=== PATIENT | female | born 1930 | race Caucasian/White ===

== ENCOUNTER 2016-06-26 22:56 | Inpatient (IN) | payer MEDICARE, OTHER ==
[~2016-06-26] VITALS: Ht 165.1 cm; Wt 52.9 kg
--- NOTE | ~2016-06-26 | CN ---
PATIENT NAME:BRITNEY FRIEDMAN MEDICAL RECORD: [id number] : 28 LOCATION:[address] ADMIT DATE: 06/27/16 ACCOUNT: [id number] CONSULTING PHYSICIAN: BETZAIDA RIVERA MD REFERRING PHYSICIAN: PRISCA JIMENEZ MD DATE OF CONSULTATION: 06/29/2016 Pulmonary Consultation CONSULT REQUESTING PHYSICIAN: Prisca Jimenez MD REASON FOR CONSULTATION: Pneumonia, right lower lobe; acute exacerbation of COPD. HISTORY OF PRESENT ILLNESS: Ms. Friedman is an 86-year-old female. According to the patient, recurrent pneumonia since February. She has a few courses of antibiotic, but she is not getting any better. She got sick 10 days ago and she was worsening shortness of breath. She was wheezing. She was coughing. She was call 911 and brought into the ER. Now, she denies any fever or chills, no night sweats. PAST MEDICAL HISTORY: 1. COPD. 2. Chronic hypoxic respiratory failure. 3. Hypothyroidism. 4. Hyperlipidemia. 5. History of depression. PAST SURGICAL HISTORY: 1. She is status post hysterectomy. 2. Appendectomy. ALLERGIES: SHE IS ALLERGIC TO CODEINE, DOXYCYCLINE, KEFLEX AND PENICILLIN. PRESENT MEDICATIONS: She is on Zithromax IV. Her other medication is reviewed. PERSONAL AND SOCIAL HISTORY: The patient is still smoking, but she is smoking 1-2 cigarettes a day. She is a nondrinker. She was a heavy smoker in the past. FAMILY HISTORY: Noncontributory. PHYSICAL EXAMINATION: GENERAL: Now, the patient is lying comfortably in bed. She is not in acute distress. VITAL SIGNS: Blood pressure is 128/62, pulse is 73, respiration is 18, temperature 98.4, SPO2 93% on 2 liter nasal cannula. HEENT: Conjunctivae pink, sclerae nonicteric. NECK: Supple. There is no JVD. CHEST: There is a crackle on the right base. No wheezing. HEART: Rhythm regular, normal sound, no murmur. ABDOMEN: Soft, bowel sounds present. No hepatosplenomegaly. RECTAL: Deferred. EXTREMITIES: No cyanosis, no clubbing, no pedal edema. SKIN: Warm, normal turgor. CENTRAL NERVOUS SYSTEM: The patient is awake and alert. There are no obvious CONSULT REPORT [id number] BRITNEY FRIEDMAN cranial nerve abnormality. The gait was not tested. LABORATORY DATA: CBC: The WBC is 11.3, hemoglobin is 10.5, hematocrit 34.7, and platelet count 257. Chemistry: Sodium 139, potassium 3.9, chloride 103, BUN is 14, creatinine 0.9, glucose 96. IMPRESSION: 1. Acute exacerbation of chronic obstructive pulmonary disease, [id number] hypoxic respiratory failure. 2. Pneumonia, right lower lobe, most likely recurrent, rule out dysphagia, chronic aspiration, rule out immune deficiency. 3. Leukocytosis secondary to pneumonia. 4. Tobacco dependence syndrome. 5. Hypertension. 6. Dysphagia. RECOMMENDATION: 1. I will discontinue the Zithromax, start her on Levaquin. 2. Start on Rocephin to cover from Gram-negative rods and community-acquired pneumonia. 2. Methylprednisolone IV. 3. Discontinue the Breo. Start her on Brovana and budesonide nebulizer. Continue albuterol and ipratropium nebulizer. 4. Check immunoglobulin levels. Check the alpha 1 antitrypsin level. 5. Speech pathology consult for swallowing evaluation. Dr. Jimenez, once again thanks for involving me in the care of Ms. Friedman. TRANSINT:[id number] Voice Confirmation ID: [id number] DOCUMENT ID: [id number] BETZAIDA RIVERA MD CC: PRISCA JIMENEZ MD [id number] DICTATION DATE: 06/29/16 142 POTATO SEED CUTTER: 06/29/16 2332 ADM IN [address] [id number] [place] [address]
[~2016-06-26 22:56] MED LIST: ATIVAN0.5 MG PO; BETAPACE 80 MG80 MG PO; CARAFATE1 G/10 ML PO; HYDROCODON-ACE1 EAC6 PO; LANOXIN125 MCG PO; METOPROLOL TAR100 M1 OR; MILK OF MAGNESI30 ML PO; MIRALAX17 GM PO; NORVASC5 MG PO; POTASSIUM20 MEQ/11 PO; PRADAXA150 MG PO; PROTONIX40 MG PO; SYNTHROID88 MCG PO; TOPROL XL50 MG PO; VITAMIN D31000 UNIT PO
[2016-06-26 23:53] LABS: BASOPHILS 0.2 % (0-2); EOSINOPHILS 2.5 % (0-7); HEMOGLOBIN 11.1 g/dL (12-16); IMMATURE GRANULOCYTES 0.3 % (0-5); LYMPHOCYTES 10.3 % (15-50); MCH 29.6 pg (26.0-34.0); MCV 98.7 fL (80.0-100.0); MEAN PLATELET VOLUME 9.2 fL (7.4-10.4); MONOCYTES 8.3 % (2-11); NEUTROPHILS 78.4 % (40-80); PLATELET COUNT 294 10x3/uL (130-400); RBC 3.75 10x6/uL (4.00-5.40); RDW 15.6 % (11.5-14.5); WBC 11.6 10x3/uL (4.8-10.8)
[2016-06-26 23:55] LABS: ALBUMIN 3.2 g/dL (3.4-5.0); ALKALINE PHOSPHATASE 74 U/L (46-116); ALT (SGPT) 8 U/L (10-68); BILIRUBIN - TOTAL 0.29 mg/dL (0.2-1.3); CALC OSMOLALITY 276 mosm/kg (275-300); CARBON DIOXIDE 36.2 mmol/L (21.0-32.0); CHLORIDE - SERUM 99 mmol/L (98-107); CREATININE - SERUM 1.1 mg/dL (0.6-1.3); GLUCOSE 116 mg/dL (74-106); POTASSIUM - SERUM 4.4 mmol/L (3.5-5.1); PROTEIN - SERUM 6.8 g/dL (6.4-8.2); SODIUM 137 mmol/L (136-145); UREA NITROGEN 17 mg/dL (7-18); eGFR NON AFRICAN AMERICAN 50 mL/min (90-120)
[2016-06-27 00:03] LABS: AMYLASE - SERUM 53 U/L (25-115); LIPASE 87 U/L (73-393); PRO BNP 412 pg/mL (0-450)
[2016-06-27 00:07] LABS: TROPONIN-I < 0.017 ng/mL (0.000-0.060)
[2016-06-27] MEDS ORDERED: TOPROL XL100 MG PO (02:55)
[2016-06-27] MEDS ORDERED: BREO ELLIPTA 11 EACH INH (02:56)
[2016-06-27] MEDS ORDERED: VENTOLIN HFA18 GM INH (02:57)
[2016-06-27] MEDS ORDERED: VITAMIN D31000 UNIT PO (02:59)
[2016-06-27 03:02] VITALS: BP 155/74; BMI 18.8
--- NOTE | 2016-06-27 03:16 | NUR ---
IF NEEDING TO CALL : ROYCE ROB [phone] OR DAUGHTER GILMA LIEBERMAN [phone].
--- NOTE | 2016-06-27 03:56 | NUR ---
RECIEVED PATIENT AT 0200, SEE ADMIT ASSESSMENT, CALL LIGHT AND WATER IN [place], BED IN LOW LOCKED POSITION, CPOC.
[2016-06-27 04:11] VITALS: BP 150/70
--- NOTE | 2016-06-27 09:47 | NUR ---
PLACED BILAT SCDS ON PT, PATENT. NOTIFIED NURSE
[2016-06-27 09:49] VITALS: BP 158/82
[2016-06-27 13:12] VITALS: BP 120/72
--- NOTE | 2016-06-27 14:00 | NUR ---
RESTING IN BED. AROUSE WHEN ENTERING ROOM. CALLS FOR ASSISTANCE WHEN NEEDED. USES BED THOMAS. O2 @ 2L NC 02SAT 97%. DENIES ANY NEEDS. CONTINUE PLAN OF CARE. BED LOCKED AND LOW. CALL LIGHT IN REACH. TWO SIDERAILS UP. BED ALARM ON. SCDs ON.
--- NOTE | 2016-06-27 14:16 | NUR ---
ALERT AND ORIENTED X4. RESTING IN BED. DENIES ANY NEEDS AT THIS TIME. CONTROLLED A-FIB 83bpm ON TELEMETRY. BED LOCKED AND LOW. CALL LIGHT IN REACH. TWO SIDERAILS UP. SCDs.
--- NOTE | 2016-06-27 17:34 | HP ---
PATIENT: BRITNEY ROB MEDICAL RECORD: [id number] ACCOUNT: [id number] LOCATION:[address] : 29 ADMISSION DATE: 06/27/16 HISTORY AND PHYSICAL EXAMINATION DATE OF ADMISSION: 06/27/2016 CHIEF COMPLAINT: Shortness of breath. HISTORY OF PRESENT ILLNESS: The patient is an 86-year-old female with longstanding history of COPD. States for the past 10 days, she has had increasing cough and increasing congestion, 911 was phoned and the patient presented to the Emergency Room and found to have a right lower lobe pneumonia. PAST MEDICAL HISTORY: Significant that she has had hysterectomy. She has had an appendectomy. She has had a broken wrist in the past. She is a . The patient has had a history of having depression, fatigue, hyperlipidemia, COPD, hypothyroidism. FAMILY HISTORY: Father had a myocardial infarction. Mother had malignant neoplasm, type unknown. ALLERGIES: SHE IS ALLERGIC TO CODEINE, DOXYCYCLINE, KEFLEX, PENICILLIN. MEDICATIONS: Include alendronate 70 mg once a day, Xanax 0.25 p.o. q.6 hours p.r.n. anxiety, amlodipine 5 mg once a day, atorvastatin 20 mg once a day, Breo Ellipta 200 mcg/25 one puff q. daily, calcium 600 mg once a day, ferrous sulfate 325 one p.o. q. daily, Lasix 40 mg once a day, hydrochlorothiazide 12.5 mg 1 p.o. q. daily. Also, the patient is on Combivent 2 puffs q.4 hours p.r.n. shortness of breath, levothyroxine 88 mcg once a day, metoprolol succinate ER 50 mg 1 p.o. daily, Mucinex on a p.r.n. basis, Protonix 40 mg once a day, KCl 10 mEq once a day, Pradaxa 150 mg b.i.d., sotalol 80 mg b.i.d., Spiriva Respimat 2 puffs daily, Ventolin 2 puffs q.4 hours p.r.n. shortness of breath. SOCIAL HISTORY: She is a , lives alone. She has smoked most of her life, one pack per day smoker. She is retired. Educated through 11th grade. REVIEW OF SYSTEMS: CONSTITUTIONAL: She denies any headaches, seizures, or syncope. Denies change in visual or auditory acuity. PULMONARY: She has reported having some cough. She has had congestion. She has had increasing shortness of breath. CARDIOVASCULAR: She has had no chest pain, palpitation, PND or orthopnea. GASTROINTESTINAL: No chronic nausea, vomiting, melena or hematochezia. GENITOURINARY: No urgency, frequency, or dysuria. PHYSICAL EXAMINATION: GENERAL: In the Emergency Room, the patient's temperature was 98.4, her pulse 71, respirations 18, blood pressure 155/74, O2 sat was 96% on 3 liters. HEENT: Her head is normocephalic. No lesions. Ears: TMs clear. Eyes: Pupils equal, round and reactive to light. Extraocular movements are intact. Nasal cavity, oral cavity and oropharynx clear. NECK: Supple. There is no adenopathy. HEART: Had a regular rate. LUNGS: She had end expiratory wheezes in all bradley. HISTORY AND PHYSICAL [id number] BRITNEY ROB ABDOMEN: Soft, bowel sounds are positive. No organomegaly. LABORATORY DATA: The patient had a white count elevated at 11.6, hemoglobin 11.1, hematocrit was 37, and platelets were 298. She had a sodium 137, potassium 4.4, chloride of 99, CO2 was 36.2, BUN 17, creatinine 1.1, glucose 116. ASSESSMENT: Right lower lobe pneumonia, history of COPD, hypertension and hypothyroidism. PLAN: The patient is admitted. She will have sputum cultures obtained, O2 supplementation, updraft therapy q.4 hours. She will also be placed on Levaquin IV. Continue to evaluate. TRANSINT:[id number] Voice Confirmation ID: [id number] DOCUMENT ID: [id number] PRISCA JIMENEZ MD at 1734 CC: [id number] DICTATION DATE: 06/27/16714 RADIOLOGY SPECIAL PROCEDURE TECH: 06/27/16 0859 ADM IN [place] [address] [place] [address]
--- NOTE | 2016-06-27 19:25 | NUR ---
RECEIVED REPORT, PT DENIES ANY NEEDS, CALL LIGHT IN REACH, BED IS LOW, SRX2, FAMILY AT BEDSIDE, WILL CONTINUE WITH CARE OF PLAN
--- NOTE | 2016-06-27 19:30 | NUR ---
RECEIVED REPORT, SITTING ON SIDE OF BED, DENIES ANY NEEDS, CALL LIGHT IN REACH, AT BED SIDE, WILL CONTINUE WITH CARE OF PLAN
[2016-06-27 20:00] VITALS: BP 143/66
[2016-06-28 01:32] VITALS: BP 96/55
--- NOTE | 2016-06-28 01:47 | NUR ---
IV RESTARTED IN R FOREARM. O2 ON. WILL CONTINUE TO MONITOR.
[2016-06-28 04:16] VITALS: BP 108/61
--- NOTE | 2016-06-28 04:29 | NUR ---
ASSESSMENT COMPLETE, SEE FLOWSHEET, PT SLEEPING, BED IS LOW, SRX2, CALL LIGHT IN REACH, WILL CONTINUE PLAN OF CARE
[2016-06-28 04:56] LABS: BASOPHILS 0.1 % (0-2); EOSINOPHILS 0.2 % (0-7); HEMOGLOBIN 10.3 g/dL (12-16); IMMATURE GRANULOCYTES 0.2 % (0-5); LYMPHOCYTES 9.7 % (15-50); MCH 29.7 pg (26.0-34.0); MCHC 30.3 g/dL (31.0-37.0); MEAN PLATELET VOLUME 9.1 fL (7.4-10.4); MONOCYTES 9.8 % (2-11); PLATELET COUNT 292 10x3/uL (130-400); RBC 3.47 10x6/uL (4.00-5.40); WBC 13.2 10x3/uL (4.8-10.8)
[2016-06-28 05:19] LABS: ANION GAP 6.3 mmol/L (8-16); CALCIUM 8.5 mg/dL (8.5-10.1); CARBON DIOXIDE 34.5 mmol/L (21.0-32.0); POTASSIUM - SERUM 3.8 mmol/L (3.5-5.1)
--- NOTE | 2016-06-28 08:00 | NUR ---
BEDPAN REMOVED FROM UNDER PATIENT. IT HAS SPILLED. REMOVED THE CLOTH BLAKE. SHE STATE SHTAT SHE WANTS A BED BATH TODAY. ENCOURAGED HER TO HAVE SPONGE BATH IN THE BEDSIDE CHAIR WHEN UP.
--- NOTE | 2016-06-28 08:15 | NUR ---
PATIENT SITTING UP IN HER BED BUTTERING HER BISCUIT. STATES THAT SHE HASN'T EATEN YET. INFORMED THAT SHE NEEDS TO BE NPO FOR AN ABDOMINAL CT. SHE VOICED UNDERSTANDING AND DENIED EATING OR DRINKING ANY OF HER BREAKFAST YET THIS MORNING.
[2016-06-28 08:33] VITALS: BP 156/75
[2016-06-28 12:31] VITALS: BP 142/77
[2016-06-28 14:11] VITALS: Ht 165.1 cm; Wt 52.9 kg
--- NOTE | 2016-06-28 14:12 | NUR ---
PATIENT RESTING IN HER BED WITHOUT EVIDENCE OF PAIN/DISTRESS AT THIS TIME. DAUGHTER IS AT THE BEDSIDE. CALL LIGHT IS WITHIN REACH.
[2016-06-28 16:55] VITALS: BP 115/56
[2016-06-28 19:00] VITALS: BP 142/71
--- NOTE | 2016-06-28 19:20 | NUR ---
RECEIVED REPORT, VISITING WITH FAMILY, DENIES ANY NEEDS, CALL LIGHT IN REACH, SCD ARE ON, BED IS LOW, SRX2, CONTINUE PLAN OF CARE
[2016-06-29 00:20] VITALS: BP 125/53
--- NOTE | 2016-06-29 00:37 | NUR ---
COIL WINDER STRAP AT BEDSIDE TO OBTAIN VITALS, CALL LIGHT IN REACH. WILL CONTINUE WITH PLAN OF CARE.
--- NOTE | 2016-06-29 04:16 | NUR ---
ASSESSMENT COMPLETE, SEE FLOWSHEET, SLEEPING, BED IS LOW, SRX2, CALL LIGHT IN REACH, WILL CONTINUE CARE OF PLAN
[2016-06-29 04:37] VITALS: BP 127/62
[2016-06-29 04:46] LABS: BASOPHILS 0.2 % (0-2); HEMATOCRIT 34.7 % (36.0-48.0); HEMOGLOBIN 10.5 g/dL (12-16); IMMATURE GRANULOCYTES 0.4 % (0-5); LYMPHOCYTES 11.6 % (15-50); MCH 29.6 pg (26.0-34.0); MCHC 30.3 g/dL (31.0-37.0); MCV 97.7 fL (80.0-100.0); MEAN PLATELET VOLUME 8.9 fL (7.4-10.4); MONOCYTES 10.5 % (2-11); NEUTROPHILS 76.3 % (40-80); PLATELET COUNT 257 10x3/uL (130-400); RBC 3.55 10x6/uL (4.00-5.40); RDW 15.8 % (11.5-14.5); WBC 11.3 10x3/uL (4.8-10.8)
[2016-06-29 05:06] LABS: ANION GAP 5.9 mmol/L (8-16); CALCIUM 8.5 mg/dL (8.5-10.1); CREATININE - SERUM 0.9 mg/dL (0.6-1.3); POTASSIUM - SERUM 3.9 mmol/L (3.5-5.1)
[2016-06-29 08:20] VITALS: BP 120/73
--- NOTE | 2016-06-29 08:39 | NUR ---
PATIENT C/O INDEGESTION. MYLANTA 30 ML PO GIVEN NOW, SHE IS GOING FOR 2 VIEW CXRAY.
--- NOTE | 2016-06-29 08:40 | NUR ---
PATIENT'S IV INFILTRATED IN RIGHT FOREARM, ATTEMPTED X1 IN RIGHT WRIST, UNSUCCESSFUL ATTEMPT BY THIS NURSE, CALLED IV NURSE STEPHANIE AND SHE WAS ABLE TO INSERT IV IN LEFT WRIST.
--- NOTE | 2016-06-29 09:30 | NUR ---
PATIENT HAS SAID SHE DOES NOT FEEL WEEL, HER STOMACH IS BURNING SHE SAYS AND SHE WAS NOT ABLE TO EAT BREAKFAST, SHE SAID THE PUDDING EVEN BURNED.
[2016-06-29 12:28] VITALS: BP 128/62
--- NOTE | 2016-06-29 14:00 | NUR ---
PATIENT C/O STOMACH PAIN. MYLANTA 30 ML PO GIVEN, SHE IS REQUESTING MAALOX THAT HAD ANOTHER MED WITH IT, SAYS THAT HAS HELPED IN THE PAST.
[2016-06-29 16:54] VITALS: BP 145/76
--- NOTE | 2016-06-29 19:30 | NUR ---
ASSESSMENT COMPLETE, A&o. RESPERATIONS EVEN ON 02 AT 2 LITER VIA NC. IV TO LEFT ARM SL. SITE CLEAN AND DRY. PT DENIES PAIN OR NEEDS AT THIS TIME, BED LOW, CL IN REACH.
--- NOTE | 2016-06-29 20:57 | NUR ---
HS MEDS GIVEN, DENIES PAIN OR NEEDS, BED LOW, CL IN REACH.
[2016-06-29 22:47] VITALS: BP 137/73
--- NOTE | 2016-06-30 00:37 | NUR ---
HOTEL OR MOTEL CLEANING SUPERVISOR AT BEDSIDE TO OBTAIN VITALS, CALL LIGHT IN REACH. WILL CONTINUE WITH PLAN OF CARE.
[2016-06-30 01:51] VITALS: BP 120/88
--- NOTE | 2016-06-30 02:18 | NUR ---
RESTING WITH EYES CLOSED, RESPERATIONS EVEN, NO S/S DISTRESS NOTED.
[2016-06-30 03:01] LABS: BASOPHILS 0 % (0-2); EOSINOPHILS 0 % (0-7); HEMATOCRIT 36.2 % (36.0-48.0); HEMOGLOBIN 11.2 g/dL (12-16); IMMATURE GRANULOCYTES 0.5 % (0-5); LYMPHOCYTES 6.2 % (15-50); MCH 29.6 pg (26.0-34.0); MCHC 30.9 g/dL (31.0-37.0); MCV 95.8 fL (80.0-100.0); MONOCYTES 0.8 % (2-11); NEUTROPHILS 92.5 % (40-80); PLATELET COUNT 272 10x3/uL (130-400); RBC 3.78 10x6/uL (4.00-5.40); RDW 15.6 % (11.5-14.5)
[2016-06-30 03:06] LABS: WBC 7.6 10x3/uL (4.8-10.8)
[2016-06-30 03:16] LABS: CALCIUM 8.8 mg/dL (8.5-10.1); CARBON DIOXIDE 32.3 mmol/L (21.0-32.0); CREATININE - SERUM 0.9 mg/dL (0.6-1.3); POTASSIUM - SERUM 4.3 mmol/L (3.5-5.1)
[2016-06-30 05:13] VITALS: BP 129/75
[2016-06-30 08:00] VITALS: BP 110/68
--- NOTE | 2016-06-30 08:00 | NUR ---
INTRODUCED MYSELF TO PT PRIMARY RN FOR TODAYS SHIFT. PT IS ALERT AND ORIENTED RESTING QUIETLY IN BED. SHIFT ASSESSMENT COMPLETED. RR NONLABORED WITH NC @2L IN PLACE. PT HAS A L.HAND PIV WITH DRSG CDI AND SWAB CAPS IN USE. PT IS C/O INDIGESTION AND HEARTBURN WILL LOOK ON EMAR FOR ANY MEDS TO HELP WITH IT. PT DENIES ANY CURRENT NEEDS AT THIS TIME, CL IN REACH. WILL CTM.
[2016-06-30 12:00] VITALS: BP 115/54
[2016-06-30 12:18] LABS: IMMUNOGLOBULIN A 330 mg/dL (64-422); IMMUNOGLOBULIN G 843 mg/dL (700-1600); IMMUNOGLOBULIN M 83 mg/dL (26-217)
--- NOTE | 2016-06-30 13:10 | NUR ---
UPON FLUSHING PTS L.HAND PIV IT INFILTRATED. D/C IV WITH CATHETER TIP FULLY INTACT, BRUISING ON HAND NOW. PT IS C/O SEVERE REFLUX/HEARTBURN, PROVIDED PT WITH MYLANTA TO TRY AND HELP RELIEVE IT. PT JUST NOT HAVING A GOOD DAY AND STATES SHE DOESNT FEEL WELL. FAMILY AT BEDSIDE, CL IN REACH. WILL CTM.
--- NOTE | 2016-06-30 13:32 | NUR ---
22G TO LEFT OUTE AC X 2 STICKS.
--- NOTE | 2016-06-30 14:41 | NUR ---
Nutrition follow-up: Diet: Regular PO intake ~60% of meals Labs reviewed RDN following.
[2016-06-30 16:49] VITALS: BP 145/68
--- NOTE | 2016-06-30 17:10 | NUR ---
CALLED OFFICE AND SPOKE WITH NURSE FOR WHO IS ROUNDING FOR CARTER AND REC'D ORDER TO HELP RELIEVE PTS INDIGESTION/HEARTBURN WITH MEALS. WAS AT BEDSIDE AND RECOMMENDED A GI CONSULT HOWEVER PRIMARY ATTENDING () DID NOT WANT ONE AND WANTED TO TRY THIS FIRST. PT COULD ALSO JUST BE CONSTIPATED SHE STATES SHE HASNT HAD A BM SINCE SUNDAY. BS ACTIVE X4 AND PT STATES SHE HASNT BEEN EATING VERY MUCH. WILL CTM.
--- NOTE | 2016-06-30 19:33 | NUR ---
ASSESSMENT COMPLETE, A&O. SITTING UP IN BED, MULTIPLE VISITORS AT BED SIDE, PT DENIES PAIN OR NEEDS, BED LOW, CL IN REACH.
--- NOTE | 2016-06-30 21:00 | NUR ---
HS MEDS GIVEN WITH FRESH ICE WATER, FAMILY AT BED SIDE, BED LOW, CL IN REACH.
[2016-06-30 21:22] VITALS: BP 127/63
--- NOTE | 2016-06-30 23:38 | NUR ---
UP WITH ASSIST TO BR.
--- NOTE | 2016-07-01 00:55 | NUR ---
RESTING WITH EYES CLOSED, RESPERATIONS EVEN, NO S/S DISTRESS NOTED.
[2016-07-01 01:14] VITALS: BP 136/75
[2016-07-01 04:37] LABS: BASOPHILS 0 % (0-2); EOSINOPHILS 0 % (0-7); HEMATOCRIT 36.9 % (36.0-48.0); HEMOGLOBIN 11.5 g/dL (12-16); IMMATURE GRANULOCYTES 0.2 % (0-5); LYMPHOCYTES 4.6 % (15-50); MCH 29.4 pg (26.0-34.0); MCHC 31.2 g/dL (31.0-37.0); MCV 94.4 fL (80.0-100.0); NEUTROPHILS 92.2 % (40-80); PLATELET COUNT 314 10x3/uL (130-400); RBC 3.91 10x6/uL (4.00-5.40); RDW 15.7 % (11.5-14.5)
[2016-07-01 04:46] LABS: WBC 16.5 10x3/uL (4.8-10.8)
[2016-07-01 05:01] LABS: ANION GAP 6.5 mmol/L (8-16); CALCIUM 8.9 mg/dL (8.5-10.1); CARBON DIOXIDE 31.9 mmol/L (21.0-32.0); CREATININE - SERUM 1.1 mg/dL (0.6-1.3); POTASSIUM - SERUM 4.4 mmol/L (3.5-5.1)
[2016-07-01 06:06] VITALS: BP 147/74
[2016-07-01 08:54] VITALS: BP 150/54
[2016-07-01 12:20] VITALS: BP 131/73
--- NOTE | 2016-07-01 15:07 | NUR ---
PT RESTING QUIETLY IN BED WITH EYES CLOSED. WOKE PT TO INITIATE IVPB ROCEPHIN AND IV PUSH SOLU-MEDROL. PUSHED STERIOD OVER 3 MINS AND FLUSHED WITH NS FLUSH THEN CONNECTED PT TO ANBX. PT RESTING QUIETLY IN BED WITH SCDS IN PLACE. PT DENIES ANY CURRENT PAIN OR INDIGESTION OR NEEDS AT THIS TIME. CL IN REACH, BED IN LOWEST, SIDE RAILS X2. WILL CTM.
[2016-07-01 17:16] VITALS: BP 112/71
--- NOTE | 2016-07-01 19:34 | NUR ---
ASSESSMENT COMPLETE, PT A&O. RESPERATIONS EVEN ON AT 2 LITER VIA NC. IV TO LEFT ARM WITH NS INFUSING AT KVO. PT DENIES PAIN OR NEEDS, BED LOW, CL IN REACH. WILL CONT TO MONITOR.
[2016-07-01 20:00] VITALS: BP 126/62
--- NOTE | 2016-07-01 20:11 | NUR ---
UP WITH ASSIST TO BR.
--- NOTE | 2016-07-01 21:12 | NUR ---
HS MEDS GIVEN WITH FRESH ICE WATER. PT DENIES PAIN OR NEEDS, BED LOW, CL IN REACH.
[2016-07-02] VITALS: BP 129/66
--- NOTE | 2016-07-02 02:06 | NUR ---
RESTING WITH EYES CLOSED, RESPERATIONS EVEN, NO S/S DISTRESS NOTED.
[2016-07-02 04:00] VITALS: BP 144/82
[2016-07-02 08:38] VITALS: BP 161/84
[2016-07-02] MEDS ORDERED: MEDROL DOSE PACK4 MG PO (09:08)
[2016-07-02] MEDS ORDERED: LEVAQUIN750 MG PO (09:09)
[2016-07-02] MEDS ORDERED: CEFUROXIME250 MG PO (09:09)
[2016-07-02] MEDS ORDERED: MYLANTA / MAALO30 ML PO (09:18)
--- NOTE | 2016-07-02 12:51 | NUR ---
D/C PTS L.AC PIV WITH CATHETER TIP FULLY INTACT. PTS PAPERWORK READY AND PT READY TO BE DISCHARGED. DISCHARGE TEACHING PROVIDED AND PT AND DAUGHTER VERBALIZE UNDERSTANDING. PT COLLECTING BELONGINGS. NO FURTHER NEEDS.
--- NOTE | 2016-07-03 06:40 | DS ---
PATIENT:BRITNEY ROB :28 MEDICAL RECORD: [id number] DISCHARGE SUMMARY ADMISSION DATE: 06/27/16 DISCHARGE DATE: 07/02/16 DATE OF ADMISSION: 06/27/2016 DATE OF DISCHARGE: 07/02/2016 CONDITION ON DISCHARGE: Improved. ADMITTING DIAGNOSES: Chronic obstructive pulmonary disease exacerbation, right lower lobe pneumonia, hypertension and hypothyroidism. DISCHARGE DIAGNOSES: Chronic obstructive pulmonary disease exacerbation, right lower lobe pneumonia, hypertension and hypothyroidism. HOSPITAL COURSE: The patient is an 86-year-old female with longstanding history of COPD. She quit smoking approximately 1 month ago. She had reported having increasing congestion, coughing and shortness of breath, presented to the Emergency Room and found to have a right lower lobe pneumonia. On physical examination in the Emergency Room, the patient was somewhat tachypneic, her respirations were 18, her blood pressure 155/74 and O2 sat was 96% on 3 liters. Her HEENT was unremarkable. Lungs, she had end-expiratory wheezing in all bradley. She had a white count of 11.6, hemoglobin 11.1, hematocrit was 37 and platelets 298. Chest x-ray showed a right lower lobe pneumonia. The patient was admitted, started on updraft, also Levaquin IV. She was seen in consultation by a seam rubbing machine operator. The patient also had what was felt to be a lesion on the right lower lung. CT of the chest revealed prominent COPD changes with areas of scarring and atelectasis, more focal density in the right chest abutted in the minor fissure and middle lobe, probably customer solutions representative of a more focal scarring and atelectasis or minor infiltrate. It was felt that patient should have a followup study in 6-8 weeks. On the , the patient's x-ray revealed no cardiomegaly, no active infiltrate. The lateral view showed small pleural effusion with costophrenic sulci. The nodularity in question on the CT was not clearly visualized on the x-ray on the . The patient's condition slowly improved on the morning of the , she was no longer short of breath. Her vital signs were stable. She had a temperature of 97, respirations 18, her pulse was 69, her O2 was 100% on 3 liters. She had a white count elevated at 16.5. This was felt to be secondary to her IV steroids. Her hemoglobin was 11.5, hematocrit was 36.9 and her platelets were 314. She had sodium of 136, potassium 4.4, chloride 102, CO2 was 31.9, her BUN is 25, creatinine was 1.1. It was felt that the patient was stable and could be discharged. DISCHARGE MEDICATIONS: Included a Medrol Dosepak take as directed, Levaquin 750 mg once a day for 3 days, Ceftin 250 b.i.d. for 3 days, Norvasc 2.5 mg once a day, Synthroid 88 mcg once a day, vitamin D3 1000 international units once a day, Pradaxa 150 mg b.i.d., sotalol 80 mg b.i.d., Ativan 0.25 p.o. q.4 hours p.r.n. anxiety, Protonix 40 mg p.o. b.i.d., metoprolol succinate 50 mg daily, Breo 1 puff daily and Ventolin 90 mcg inhaler 1 q.4 hours p.r.n. shortness of breath. DISCHARGE INSTRUCTIONS: The patient was also discharged home. She will follow up with me in 10-14 days. She will be on a regular diet. O2 would be at 2 liters nasal prong. DISCHARGE SUMMARY REPORT [id number] BRITNEY ROB ACTIVITIES: Ad jyoti. TRANSINT:[id number] Voice Confirmation ID: [id number] DOCUMENT ID: [id number] PRISCA JIMENEZ MD at 0640 CC: [id number] DICTATION DATE: 07/02/16915 PAVER INSTALLER: 07/02/16 1111 DIS IN 07/02/16 [facility] [address] [place] [address]
== END 2016-07-02 13:07 | disposition home or self-care (01) | DRG 189 ==
LOC: D.ER 22:56 → D.M2 06-27 00:35
PROVIDERS: Family Medicine; Internal Medicine Pulmonary Disease; ADMIT Family Medicine
DX: J96.21 Acute and chronic respiratory failure with hypoxia (principal); J18.9 Pneumonia, unspecified organism; J44.0 Chronic obstructive pulmonary disease with (acute) lower respiratory infection; J44.1 Chronic obstructive pulmonary disease with (acute) exacerbation; J44.9 Chronic obstructive pulmonary disease, unspecified; E78.5 Hyperlipidemia, unspecified; E03.9 Hypothyroidism, unspecified; I10 Essential (primary) hypertension; F17.200 Nicotine dependence, unspecified, uncomplicated; K20.9 Esophagitis, unspecified

== ENCOUNTER 2016-09-20 07:11 | Emergency (ER) | payer MEDICARE, OTHER ==
[2016-06-28 14:11] VITALS: BMI 18.8
[~2016-09-20 07:11] MED LIST changes: +BREO ELLIPTA 11 EACH INH; +CEFUROXIME250 MG PO; +LEVAQUIN750 MG PO; +MEDROL DOSE PACK4 MG PO; +MYLANTA / MAALO30 ML PO; +TOPROL XL100 MG PO; +VENTOLIN HFA18 GM INH
[2016-09-20 07:46] LABS: HEMATOCRIT 37.6 % (36.0-48.0); HEMOGLOBIN 11.8 g/dL (12-16); MCH 29.1 pg (26.0-34.0); MCHC 31.4 g/dL (31.0-37.0); MCV 92.8 fL (80.0-100.0); PLATELET COUNT 245 10x3/uL (130-400); RBC 4.05 10x6/uL (4.00-5.40); RDW 14.8 % (11.5-14.5); WBC 23.1 10x3/uL (4.8-10.8)
[2016-09-20 07:56] LABS: ALBUMIN 2.9 g/dL (3.4-5.0); ALKALINE PHOSPHATASE 80 U/L (46-116); ALT (SGPT) 14 U/L (10-68); BILIRUBIN - TOTAL 0.46 mg/dL (0.2-1.3); CALCIUM 8.3 mg/dL (8.5-10.1); CARBON DIOXIDE 30.4 mmol/L (21.0-32.0); CHLORIDE - SERUM 103 mmol/L (98-107); CREATININE - SERUM 0.8 mg/dL (0.6-1.3); POTASSIUM - SERUM 3.8 mmol/L (3.5-5.1); PROTEIN - SERUM 5.8 g/dL (6.4-8.2); SODIUM 140 mmol/L (136-145); UREA NITROGEN 13 mg/dL (7-18); eGFR NON AFRICAN AMERICAN 72 mL/min (90-120)
[2016-09-20 08:03] LABS: CALC OSMOLALITY 278 mosm/kg (275-300); GLUCOSE 100 mg/dL (74-106); TROPONIN-I < 0.017 ng/mL (0.000-0.060)
[2016-09-20 08:07] LABS: EOSINOPHILS 2 % (0-7); LYMPHOCYTES 8 % (15-50); MONOCYTES 16 % (2-11); NEUTROPHILS 74 % (40-80); PLATELET ESTIMATE NORMAL
[2016-09-20 08:08] LABS: HYPOCHROMASIA OCC; ROULEAUX OCC
== END 2016-09-20 09:00 | disposition home or self-care (01) ==
LOC: D.ER 07:11
PROVIDERS: Emergency Medicine
DX: T17.890A Other foreign object in other parts of respiratory tract causing asphyxiation, initial encounter (principal); X58.XXXA Exposure to other specified factors, initial encounter; Y93.89 Activity, other specified; Y92.89 Other specified places as the place of occurrence of the external cause; J18.9 Pneumonia, unspecified organism; J44.9 Chronic obstructive pulmonary disease, unspecified; I10 Essential (primary) hypertension; E03.9 Hypothyroidism, unspecified; Z95.0 Presence of cardiac pacemaker; R05 Cough; R09.89 Other specified symptoms and signs involving the circulatory and respiratory systems; F17.200 Nicotine dependence, unspecified, uncomplicated; I49.3 Ventricular premature depolarization

== ENCOUNTER 2017-03-05 16:49 | Emergency (ER) | payer MEDICARE, OTHER ==
[2016-06-28 14:11] VITALS: BMI 18.8
[2017-03-05 17:48] LABS: BASOPHILS 0.1 % (0-2); EOSINOPHILS 0 % (0-7); HEMATOCRIT 36.2 % (36.0-48.0); HEMOGLOBIN 10.7 g/dL (12-16); IMMATURE GRANULOCYTES 1.4 % (0-5); LYMPHOCYTES 6.8 % (15-50); MCH 26.8 pg (26.0-34.0); MCHC 29.6 g/dL (31.0-37.0); MCV 90.5 fL (80.0-100.0); MEAN PLATELET VOLUME 8.9 fL (7.4-10.4); MONOCYTES 6.3 % (2-11); NEUTROPHILS 85.4 % (40-80); RDW 15.7 % (11.5-14.5); WBC 12.6 10x3/uL (4.8-10.8)
[2017-03-05 18:02] LABS: ALBUMIN 3.3 g/dL (3.4-5.0); ALKALINE PHOSPHATASE 80 U/L (46-116); ALT (SGPT) 14 U/L (10-68); CALC OSMOLALITY 279 mosm/kg (275-300); CALCIUM 9.4 mg/dL (8.5-10.1); CARBON DIOXIDE 36.1 mmol/L (21.0-32.0); CHLORIDE - SERUM 98 mmol/L (98-107); CREATININE - SERUM 1.1 mg/dL (0.6-1.3); GLUCOSE 126 mg/dL (74-106); POTASSIUM - SERUM 4.2 mmol/L (3.5-5.1); PROTEIN - SERUM 6.8 g/dL (6.4-8.2); SODIUM 138 mmol/L (136-145); UREA NITROGEN 19 mg/dL (7-18); eGFR NON AFRICAN AMERICAN 50 mL/min (90-120)
[2017-03-05 18:12] LABS: PLATELET COUNT 326 10x3/uL (130-400)
[2017-03-05 18:16] LABS: TROPONIN-I < 0.017 ng/mL (0.000-0.060)
== END 2017-03-05 20:50 | disposition home or self-care (01) ==
LOC: D.ER 16:49
PROVIDERS: Physician Assistant
DX: J44.1 Chronic obstructive pulmonary disease with (acute) exacerbation (principal); J18.9 Pneumonia, unspecified organism; Z79.01 Long term (current) use of anticoagulants

== ENCOUNTER 2017-06-20 13:38 | Emergency (ER) | payer MEDICARE, OTHER ==
[2016-06-28 14:11] VITALS: BMI 18.8
[2017-06-20 14:49] LABS: BASOPHILS 0.4 % (0-2); EOSINOPHILS 2.3 % (0-7); HEMATOCRIT 38.7 % (36.0-48.0); HEMOGLOBIN 11.6 g/dL (12-16); IMMATURE GRANULOCYTES 0.2 % (0-5); LYMPHOCYTES 14.6 % (15-50); MCV 96.8 fL (80.0-100.0); MEAN PLATELET VOLUME 9.1 fL (7.4-10.4); MONOCYTES 10.2 % (2-11); NEUTROPHILS 72.3 % (40-80); PLATELET COUNT 289 10x3/uL (130-400); RDW 20.3 % (11.5-14.5); WBC 9.3 10x3/uL (4.8-10.8)
[2017-06-20 15:04] LABS: INR 1.44 (0.85-1.17); PROTIME 17.1 SECONDS (11.6-15.0)
[2017-06-20 15:05] LABS: APTT 47.9 SECONDS (22.8-39.4)
[2017-06-20 15:19] LABS: ALBUMIN 3.2 g/dL (3.4-5.0); ANION GAP 9.6 mmol/L (8-16); BILIRUBIN - TOTAL 0.42 mg/dL (0.2-1.3); CALCIUM 9.4 mg/dL (8.5-10.1); CARBON DIOXIDE 31.6 mmol/L (21.0-32.0); CREATININE - SERUM 0.9 mg/dL (0.6-1.3); POTASSIUM - SERUM 4.2 mmol/L (3.5-5.1); PROTEIN - SERUM 7.1 g/dL (6.4-8.2)
== END 2017-06-20 18:45 | disposition home or self-care (01) ==
LOC: D.ER 13:38
PROVIDERS: Family Medicine
DX: J44.1 Chronic obstructive pulmonary disease with (acute) exacerbation (principal); R06.00 Dyspnea, unspecified; I10 Essential (primary) hypertension; E03.9 Hypothyroidism, unspecified; Z95.0 Presence of cardiac pacemaker; F17.200 Nicotine dependence, unspecified, uncomplicated

== ENCOUNTER 2017-06-26 11:36 | Inpatient (IN) | payer MEDICARE, OTHER ==
[~2017-06-26] VITALS: Ht 165.1 cm; Wt 55.3 kg
--- NOTE | ~2017-06-26 | OP ---
PATIENT NAME: BRITNEY FRIEDMAN MEDICAL RECORD: [id number] :29 LOCATION:[address] ADMISSION DATE:06/26/17 SURGEON: BETZAIDA RIVERA MD DATE OF OPERATION: 07/04/2017 PROCEDURE: Fiberoptic bronchoscopy. INDICATION: Ms. Friedman is an 87-year-old female who had CT scan of the chest, which showed partial occlusion, possible mucus plug. A fiberoptic bronchoscopy carried out to remove the mucus plug and inspect the airway for any intrabronchial lesion. PROCEDURE IN DETAIL: The fiberoptic bronchoscope was easily passed through the mouth. The vocal cords were normal, moving equally on phonation. The epiglottis was normal. The pyriform sinuses were normal. The main trachea was normal. There were thick whitish secretions occluding almost the right main bronchus. It took me 4 or 5 times to go in and out to pull the mucus plugging which was threading. The right main bronchus, for now there were some bronchitic changes. The right upper lobe of bronchus was within normal range. No endobronchial lesion was seen. Right middle lobe, right lower lobe within normal range. No endobronchial lesion was seen. There were bronchitic changes, bled easily by touching by the bronchoscope. The left main bronchus was also filled with a thick whitish secretion. It took 2-3 times to go back and forth to pull the mucus plugging and threads. There were no endobronchial lesions seen in the left upper lobe lingula, left lower lobe segments. Bronchitic change bled easily by the bronchoscope. Specimen washing was obtained and sent for routine culture, sensitivity, AB and fungus and cytology. MEDICATIONS: Versed 2 mg IV in divided doses, fentanyl 50 mcg IV, atropine 0.6 mg IM. Overall, the patient tolerated the procedure very well. TRANSINT:[id number] Voice Confirmation ID: [id number] DOCUMENT ID: [id number] BETZAIDA RIVERA MD CC: PRISCA JIMENEZ [id number] DICTATION DATE: 07/04/17 1113 CUSHION FORMER: 07/04/17 1430 ADM IN [address] [place] [address]
--- NOTE | ~2017-06-26 | HP ---
PATIENT: BRITNEY ROB MEDICAL RECORD: [id number] ACCOUNT: [id number] LOCATION:[address] : 29 ADMISSION DATE: 06/26/17 HISTORY AND PHYSICAL EXAMINATION DATE OF ADMISSION: 06/26/2017 CHIEF COMPLAINT: Shortness of breath. HISTORY OF PRESENT ILLNESS: The patient is an 87-year-old female with long-standing history of having COPD. The patient continues to be a smoker for the past couple of days. She has had increasing shortness of breath. She was in my office yesterday, treated. She continued to have shortness of breath. She presented to the Emergency Room. It was felt the patient had failed conservative therapy; therefore, she warrants admission. PAST MEDICAL HISTORY: Her past history is significant in that she has had, as stated above, long-standing history of smoking. She has had hypertension, hyperlipidemia, hypothyroidism, gastroesophageal reflux. The patient has had history of having atrial fibrillation. She had hysterectomy, appendectomy. She has had a pacemaker placed by Dr. Snyder. She has had broken wrist with pins in 1979. FAMILY HISTORY: Father of myocardial infarction in 1960. Mother's was in 1981, reason unknown. She did have malignant neoplasm. ALLERGIES: CODEINE, DOXYCYCLINE. SHE STATES SHE HAS STOMACH CRAMPS WITH KEFLEX, PENICILLIN. SHE HAS HAD SOME HIVES. MEDICATIONS: Include alprazolam 0.25 one every 6 hours p.r.n. anxiety, amlodipine 5 mg once a day, atorvastatin 20 mg p.o. daily, Breo 200/25 one puff daily. She had been placed on cefuroxime 500 mg p.o. b.i.d. She had also been, in the Emergency Room, given doxycycline 100 mg b.i.d., ferrous sulfate 325, also is on Combivent two puffs q. 4 hours p.r.n. shortness of breath, levothyroxine 88 mcg once a day, Pradaxa 150 mg b.i.d., recently placed on Medrol Dosepak, sotalol 80 mg p.o. b.i.d., valsartan 160 mg once a day. SOCIAL HISTORY: The patient is educated through 11th grade. She is a . She was born in [place]. She has been a smoker most of her adult life, one pack per day. She denies any alcohol abuse. REVIEW OF SYSTEMS: CONSTITUTIONAL: She denies any headache, seizure, or syncope. She denies change in visual or auditory acuity. PULMONARY: She has had some yellow sputum production. CARDIOVASCULAR: She has no chest pain, palpitation, PND, orthopnea. GI: No chronic vomiting, melena, or hematochezia. URINARY: No urgency, frequency, or dysuria. PHYSICAL EXAMINATION: VITAL SIGNS: In the Emergency Room, the patient is on 2 liters O2. O2 sat 97%, respirations 24, pulse 72, blood pressure 159/82. GENERAL: She is alert. She is oriented times 3. HEENT: Her head is normocephalic. No lesions. Ears; TMs clear. Eyes; pupils are equal, round, and reactive to light. Extraocular movements are intact. Her HISTORY AND PHYSICAL [id number] GRAVES,BRITNEY F nasal cavity, oral cavity, and oropharynx are clear. NECK: Supple. There is no adenopathy. HEART: She has regular rate. LUNGS: She has end expiratory wheezes in all bradley. Decreased breath sounds. ABDOMEN: Soft. Bowel sounds are positive. EXTREMITIES: Lower extremities have no edema. The patient had a chest x-ray. The chest x-ray showed some right lower lobe atelectasis, possible pneumonia. She had a white count of 11.8, hemoglobin 12.6, hematocrit 40.9, and platelets were 309. Sodium 140, potassium 4.4, chloride is 101, BUN is 15, creatinine is 1, CO2 is 34.9, glucose is 120. BNP was normal. Cardiac enzymes unremarkable. Urinalysis shows 5-10 wbc's per high power field. She had 1+ blood. ABGs; pH 7.365, pCO2 is 57, O2 is 90, bicarb is 32.8. D-dimer is normal. INR is 1.38. ASSESSMENT: COPD exacerbation; history of atrial fibrillation, status post pacemaker placement; gastroesophageal reflux; hypertension. PLAN: The patient will be admitted. Pulmonary consultation will be obtained. She will be given Solu-Medrol 1 mg/kg q. 8 hours. Also placed on Rocephin 1 gram q. 24 hours, Zithromax 500 mg p.o. b.i.d. Sputum culture will be obtained. Also given Xopenex every four hours, O2 supplementation. We will continue to evaluate this. TRANSINT:[id number] Voice Confirmation ID: [id number] DOCUMENT ID: [id number] PRISCA JIMENEZ MD at 0615 CC: [id number] DICTATION DATE: 06/26/171746 JIG BORING MACHINE SET UP OPERATOR: 06/26/17 193 ADM IN [facility] [address] [place] [address]
[2017-06-26 13:18] LABS: BASOPHILS 0.2 % (0-2); EOSINOPHILS 1.4 % (0-7); HEMATOCRIT 40.9 % (36.0-48.0); HEMOGLOBIN 12.6 g/dL (12-16); IMMATURE GRANULOCYTES 0.3 % (0-5); LYMPHOCYTES 6.1 % (15-50); MCH 29.5 pg (26.0-34.0); MCHC 30.8 g/dL (31.0-37.0); MCV 95.8 fL (80.0-100.0); MEAN PLATELET VOLUME 9.4 fL (7.4-10.4); MONOCYTES 1.6 % (2-11); NEUTROPHILS 90.4 % (40-80); PLATELET COUNT 309 10x3/uL (130-400); RBC 4.27 10x6/uL (4.00-5.40); WBC 11.8 10x3/uL (4.8-10.8)
[2017-06-26 13:24] LABS: INR 1.38 (0.85-1.17); PROTIME 16.5 SECONDS (11.6-15.0)
[2017-06-26 13:26] LABS: D-DIMER-QUANTITATIVE 0.52 ug/mLFEU (0.20-0.54)
[2017-06-26 13:28] LABS: ALBUMIN 3.2 g/dL (3.4-5.0); ALKALINE PHOSPHATASE 96 U/L (46-116); ALT (SGPT) 10 U/L (10-68); CALC OSMOLALITY 280 mosm/kg (275-300); CALCIUM 9.3 mg/dL (8.5-10.1); CARBON DIOXIDE 34.9 mmol/L (21.0-32.0); CHLORIDE - SERUM 101 mmol/L (98-107); GLUCOSE 120 mg/dL (74-106); POTASSIUM - SERUM 4.4 mmol/L (3.5-5.1); PROTEIN - SERUM 7.2 g/dL (6.4-8.2); SODIUM 140 mmol/L (136-145); UREA NITROGEN 15 mg/dL (7-18); eGFR NON AFRICAN AMERICAN 55 mL/min (90-120)
[2017-06-26 13:35] LABS: CREATINE KINASE 23 UL (21-215); PRO BNP 394 pg/mL (0-450); TROPONIN-I < 0.017 ng/mL (0.000-0.060)
[2017-06-26 13:44] LABS: APPEARANCE HAZY (CLEAR); BACTERIA FEW /hpf (NONE SEEN); BILIRUBIN NEGATIVE (NEGATIVE); COLOR YELLOW (YELLOW); GLUCOSE NEGATIVE (NEGATIVE); KETONE NEGATIVE (NEGATIVE); MUCUS <1+ /lpf (NONE SEEN); NITRITE NEGATIVE (NEGATIVE); PROTEIN NEGATIVE (NEGATIVE); RED CELLS - URINE 0-5 /hpf (0-5); UROBILINOGEN NORMAL (NORMAL)
[2017-06-26 19:45] VITALS: BP 184/78
[2017-06-27 03:28] VITALS: BMI 20.3
[2017-06-27 04:00] VITALS: BP 170/79
[2017-06-27 04:41] LABS: BASOPHILS 0.1 % (0-2); EOSINOPHILS 0 % (0-7); HEMATOCRIT 39.3 % (36.0-48.0); IMMATURE GRANULOCYTES 0.4 % (0-5); LYMPHOCYTES 5.7 % (15-50); MCH 29.1 pg (26.0-34.0); MCHC 30.5 g/dL (31.0-37.0); MCV 95.4 fL (80.0-100.0); MEAN PLATELET VOLUME 9.3 fL (7.4-10.4); MONOCYTES 8.2 % (2-11); NEUTROPHILS 85.6 % (40-80); PLATELET COUNT 320 10x3/uL (130-400); RBC 4.12 10x6/uL (4.00-5.40); RDW 18.6 % (11.5-14.5)
[2017-06-27 04:47] LABS: WBC 15.2 10x3/uL (4.8-10.8)
[2017-06-27 04:53] LABS: ANION GAP 9.2 mmol/L (8-16); CALCIUM 9.3 mg/dL (8.5-10.1); CARBON DIOXIDE 32.2 mmol/L (21.0-32.0); POTASSIUM - SERUM 4.4 mmol/L (3.5-5.1)
[2017-06-27 09:03] VITALS: BP 143/72
[2017-06-27 12:35] VITALS: BP 104/53
[2017-06-27 13:32] VITALS: Ht 165.1 cm; Wt 55.3 kg
[2017-06-27 15:56] VITALS: BP 118/56
[2017-06-28] VITALS (7 sets, daily range): BP systolic 113–176; BP diastolic 57–86
[2017-06-28 05:01] LABS: BASOPHILS 0 % (0-2); EOSINOPHILS 0 % (0-7); HEMATOCRIT 35.8 % (36.0-48.0); HEMOGLOBIN 10.9 g/dL (12-16); IMMATURE GRANULOCYTES 0.5 % (0-5); LYMPHOCYTES 3.9 % (15-50); MCH 29.1 pg (26.0-34.0); MCHC 30.4 g/dL (31.0-37.0); MCV 95.5 fL (80.0-100.0); MEAN PLATELET VOLUME 9.6 fL (7.4-10.4); MONOCYTES 1.9 % (2-11); NEUTROPHILS 93.7 % (40-80); PLATELET COUNT 281 10x3/uL (130-400); RBC 3.75 10x6/uL (4.00-5.40); WBC 16.6 10x3/uL (4.8-10.8)
[2017-06-28 05:20] LABS: ANION GAP 6.5 mmol/L (8-16); CALCIUM 8.5 mg/dL (8.5-10.1); CARBON DIOXIDE 31.3 mmol/L (21.0-32.0); POTASSIUM - SERUM 3.8 mmol/L (3.5-5.1)
[2017-06-29 04:00] VITALS: BP 123/88
[2017-06-29 05:16] LABS: BASOPHILS 0.1 % (0-2); EOSINOPHILS 0 % (0-7); HEMATOCRIT 41.9 % (36.0-48.0); HEMOGLOBIN 12.9 g/dL (12-16); IMMATURE GRANULOCYTES 0.8 % (0-5); LYMPHOCYTES 4.7 % (15-50); MCH 29.3 pg (26.0-34.0); MCHC 30.8 g/dL (31.0-37.0); MCV 95.2 fL (80.0-100.0); MEAN PLATELET VOLUME 9.5 fL (7.4-10.4); MONOCYTES 5.5 % (2-11); NEUTROPHILS 88.9 % (40-80); PLATELET COUNT 316 10x3/uL (130-400); RDW 19.2 % (11.5-14.5); WBC 17.5 10x3/uL (4.8-10.8)
[2017-06-29 05:30] LABS: ANION GAP 8.9 mmol/L (8-16); CARBON DIOXIDE 32.8 mmol/L (21.0-32.0); CREATININE - SERUM 0.9 mg/dL (0.6-1.3); POTASSIUM - SERUM 3.7 mmol/L (3.5-5.1)
[2017-06-29 07:52] VITALS: BP 113/56
[2017-06-29 08:22] LABS: IMMUNOGLOBULIN A 292 mg/dL (64-422); IMMUNOGLOBULIN G 710 mg/dL (700-1600)
[2017-06-29 12:02] VITALS: BP 110/62
[2017-06-29 17:14] VITALS: BP 167/81
[2017-06-29 21:32] VITALS: BP 131/74
[2017-06-30 04:56] VITALS: BP 178/88
[2017-06-30 05:07] LABS: BASOPHILS 0.1 % (0-2); EOSINOPHILS 0 % (0-7); HEMATOCRIT 38.6 % (36.0-48.0); HEMOGLOBIN 12.2 g/dL (12-16); IMMATURE GRANULOCYTES 0.6 % (0-5); LYMPHOCYTES 3.8 % (15-50); MCH 29.5 pg (26.0-34.0); MCHC 31.6 g/dL (31.0-37.0); MCV 93.5 fL (80.0-100.0); MONOCYTES 4.2 % (2-11); NEUTROPHILS 91.3 % (40-80); PLATELET COUNT 272 10x3/uL (130-400); RBC 4.13 10x6/uL (4.00-5.40); RDW 19.8 % (11.5-14.5); WBC 16.4 10x3/uL (4.8-10.8)
[2017-06-30 05:28] LABS: ALBUMIN 2.5 g/dL (3.4-5.0); ANION GAP 10.4 mmol/L (8-16); BILIRUBIN - TOTAL 0.32 mg/dL (0.2-1.3); CALCIUM 8.3 mg/dL (8.5-10.1); CARBON DIOXIDE 29.1 mmol/L (21.0-32.0); CREATININE - SERUM 0.9 mg/dL (0.6-1.3); MAGNESIUM - SERUM 2.1 mg/dL (1.8-2.4); PHOSPHOROUS 3.2 mg/dL (2.5-4.9); POTASSIUM - SERUM 3.5 mmol/L (3.5-5.1); PROTEIN - SERUM 5.8 g/dL (6.4-8.2)
[2017-06-30 08:59] VITALS: BP 176/81
[2017-06-30 13:09] VITALS: BP 110/68
[2017-06-30 16:14] VITALS: BP 118/79
[2017-07-01 04:48] LABS: BASOPHILS 0.1 % (0-2); EOSINOPHILS 0 % (0-7); HEMATOCRIT 39.2 % (36.0-48.0); HEMOGLOBIN 12.2 g/dL (12-16); IMMATURE GRANULOCYTES 0.9 % (0-5); LYMPHOCYTES 5.4 % (15-50); MCH 29.1 pg (26.0-34.0); MCHC 31.1 g/dL (31.0-37.0); MCV 93.6 fL (80.0-100.0); MEAN PLATELET VOLUME 9.6 fL (7.4-10.4); MONOCYTES 7.1 % (2-11); NEUTROPHILS 86.5 % (40-80); PLATELET COUNT 290 10x3/uL (130-400); RBC 4.19 10x6/uL (4.00-5.40); RDW 19.7 % (11.5-14.5); WBC 13.9 10x3/uL (4.8-10.8)
[2017-07-01 05:04] LABS: ALBUMIN 2.3 g/dL (3.4-5.0); ANION GAP 7.4 mmol/L (8-16); BILIRUBIN - TOTAL 0.41 mg/dL (0.2-1.3); CALCIUM 8.1 mg/dL (8.5-10.1); CARBON DIOXIDE 31.1 mmol/L (21.0-32.0); CREATININE - SERUM 0.9 mg/dL (0.6-1.3); POTASSIUM - SERUM 3.5 mmol/L (3.5-5.1); PROTEIN - SERUM 5.5 g/dL (6.4-8.2)
[2017-07-01 08:28] VITALS: BP 143/42; BP 164/89
[2017-07-01 13:25] VITALS: BP 130/67
[2017-07-01 16:13] VITALS: BP 171/72
[2017-07-01 20:00] VITALS: BP 157/64
[2017-07-02] VITALS: BP 145/70
[2017-07-02 03:37] LABS: BASOPHILS 0.1 % (0-2); EOSINOPHILS 0 % (0-7); HEMATOCRIT 41.5 % (36.0-48.0); HEMOGLOBIN 13.2 g/dL (12-16); LYMPHOCYTES 4.3 % (15-50); MCH 29.4 pg (26.0-34.0); MCHC 31.8 g/dL (31.0-37.0); MCV 92.4 fL (80.0-100.0); MEAN PLATELET VOLUME 9.4 fL (7.4-10.4); MONOCYTES 7.7 % (2-11); NEUTROPHILS 86.9 % (40-80); PLATELET COUNT 272 10x3/uL (130-400); RBC 4.49 10x6/uL (4.00-5.40); RDW 19.2 % (11.5-14.5); WBC 16.6 10x3/uL (4.8-10.8)
[2017-07-02 03:50] LABS: ALBUMIN 2.4 g/dL (3.4-5.0); ANION GAP 8.2 mmol/L (8-16); BILIRUBIN - TOTAL 0.39 mg/dL (0.2-1.3); CALCIUM 8.3 mg/dL (8.5-10.1); CARBON DIOXIDE 32.5 mmol/L (21.0-32.0); CREATININE - SERUM 0.9 mg/dL (0.6-1.3); POTASSIUM - SERUM 3.7 mmol/L (3.5-5.1); PROTEIN - SERUM 5.8 g/dL (6.4-8.2)
[2017-07-02 04:00] VITALS: BP 169/85
[2017-07-02 08:12] VITALS: BP 179/86
[2017-07-02 12:00] VITALS: BP 171/84
[2017-07-02 16:36] VITALS: BP 168/76
[2017-07-02 20:00] VITALS: BP 148/78
[2017-07-03 04:00] VITALS: BP 164/85
[2017-07-03 04:37] LABS: BASOPHILS 0.1 % (0-2); EOSINOPHILS 0 % (0-7); HEMATOCRIT 40.3 % (36.0-48.0); HEMOGLOBIN 13.1 g/dL (12-16); IMMATURE GRANULOCYTES 0.8 % (0-5); LYMPHOCYTES 3.8 % (15-50); MCH 30.1 pg (26.0-34.0); MCHC 32.5 g/dL (31.0-37.0); MCV 92.6 fL (80.0-100.0); MONOCYTES 7.3 % (2-11); PLATELET COUNT 234 10x3/uL (130-400); RBC 4.35 10x6/uL (4.00-5.40); WBC 18.2 10x3/uL (4.8-10.8)
[2017-07-03 04:46] LABS: ANION GAP 6.7 mmol/L (8-16); CALCIUM 8.4 mg/dL (8.5-10.1); CARBON DIOXIDE 30.2 mmol/L (21.0-32.0); POTASSIUM - SERUM 3.9 mmol/L (3.5-5.1)
[2017-07-03 08:51] VITALS: BP 182/89
[2017-07-03 12:01] VITALS: BP 170/82
[2017-07-03 13:18] LABS: IMMUNOGLOBULIN E 147 IU/mL (0-100)
[2017-07-03 16:04] VITALS: BP 131/66
[2017-07-03 17:22] LABS: HEMATOCRIT 41.2 % (36.0-48.0); HEMOGLOBIN 13.2 g/dL (12-16); MCH 29.5 pg (26.0-34.0); MCV 92.2 fL (80.0-100.0); MEAN PLATELET VOLUME 9.2 fL (7.4-10.4); PLATELET COUNT 250 10x3/uL (130-400); RBC 4.47 10x6/uL (4.00-5.40); RDW 18.7 % (11.5-14.5); WBC 21.2 10x3/uL (4.8-10.8)
[2017-07-03 18:42] LABS: INR 1.22 (0.85-1.17)
[2017-07-03 18:43] LABS: APTT 29.3 SECONDS (22.8-39.4)
[2017-07-03 18:45] LABS: LYMPHOCYTES 5 % (15-50); MONOCYTES 3 % (2-11); NEUTROPHILS 92 % (40-80); PLATELET ESTIMATE NORMAL
[2017-07-03 18:47] LABS: TARGET CELLS OCC
[2017-07-03 18:49] LABS: BURR CELLS OCC
[2017-07-03 20:00] VITALS: BP 157/94
[2017-07-04 04:35] LABS: ALBUMIN 2.3 g/dL (3.4-5.0); ANION GAP 6.9 mmol/L (8-16); BILIRUBIN - TOTAL 0.42 mg/dL (0.2-1.3); CALCIUM 8.2 mg/dL (8.5-10.1); CARBON DIOXIDE 32.3 mmol/L (21.0-32.0); CREATININE - SERUM 0.8 mg/dL (0.6-1.3); POTASSIUM - SERUM 4.2 mmol/L (3.5-5.1); PROTEIN - SERUM 5.5 g/dL (6.4-8.2)
[2017-07-04 06:17] VITALS: BP 162/87
[2017-07-04 07:59] VITALS: BP 197/95
[2017-07-04 15:51] VITALS: BP 173/80; BP 192/92
[2017-07-04 19:58] VITALS: BP 183/87
[2017-07-05 02:00] VITALS: BP 115/68
[2017-07-05 03:56] VITALS: BP 126/66
[2017-07-05 05:16] LABS: BASOPHILS 0.1 % (0-2); EOSINOPHILS 0 % (0-7); HEMATOCRIT 39.6 % (36.0-48.0); HEMOGLOBIN 12.7 g/dL (12-16); IMMATURE GRANULOCYTES 1.1 % (0-5); LYMPHOCYTES 2.7 % (15-50); MCH 29.7 pg (26.0-34.0); MCHC 32.1 g/dL (31.0-37.0); MCV 92.7 fL (80.0-100.0); MEAN PLATELET VOLUME 9.7 fL (7.4-10.4); NEUTROPHILS 93.1 % (40-80); PLATELET COUNT 233 10x3/uL (130-400); RBC 4.27 10x6/uL (4.00-5.40); RDW 19.1 % (11.5-14.5); WBC 20.4 10x3/uL (4.8-10.8)
[2017-07-05 05:23] LABS: ANION GAP 10.3 mmol/L (8-16); CALCIUM 8.5 mg/dL (8.5-10.1); CREATININE - SERUM 0.9 mg/dL (0.6-1.3)
[2017-07-05 05:24] LABS: POTASSIUM - SERUM 5.3 mmol/L (3.5-5.1)
[2017-07-05 08:32] VITALS: BP 125/77
[2017-07-05 12:30] VITALS: BP 153/79
[2017-07-05 16:26] VITALS: BP 163/61
[2017-07-05 17:13] LABS: ACID FAST SMEAR Negative (()); AFB SPECIMEN PROCESSING Concentration (())
[2017-07-05 22:29] VITALS: BP 157/86
[2017-07-06 04:21] LABS: BASOPHILS 0 % (0-2); EOSINOPHILS 0.1 % (0-7); HEMATOCRIT 38.6 % (36.0-48.0); HEMOGLOBIN 12.2 g/dL (12-16); IMMATURE GRANULOCYTES 1.5 % (0-5); LYMPHOCYTES 6.5 % (15-50); MCHC 31.6 g/dL (31.0-37.0); MCV 91.7 fL (80.0-100.0); MEAN PLATELET VOLUME 9.5 fL (7.4-10.4); MONOCYTES 10.5 % (2-11); NEUTROPHILS 81.4 % (40-80); PLATELET COUNT 200 10x3/uL (130-400); RBC 4.21 10x6/uL (4.00-5.40); RDW 18.6 % (11.5-14.5); WBC 20.6 10x3/uL (4.8-10.8)
[2017-07-06 04:31] LABS: ANION GAP 6.6 mmol/L (8-16); CALCIUM 8.3 mg/dL (8.5-10.1); CARBON DIOXIDE 29.7 mmol/L (21.0-32.0); CREATININE - SERUM 0.8 mg/dL (0.6-1.3)
[2017-07-06 04:41] LABS: POTASSIUM - SERUM 4.3 mmol/L (3.5-5.1)
[2017-07-06 04:53] VITALS: BP 144/81
[2017-07-06 08:26] VITALS: BP 140/71
[2017-07-06 12:47] VITALS: BP 155/68
[2017-07-06 13:18] LABS: FUNGUS STAIN Final report (())
[2017-07-06 16:17] VITALS: BP 146/78
[2017-07-06 20:00] VITALS: BP 167/81
[2017-07-07] VITALS: BP 155/75
[2017-07-07 04:00] VITALS: BP 151/76
[2017-07-07 05:32] LABS: BASOPHILS 0.1 % (0-2); EOSINOPHILS 1.3 % (0-7); HEMATOCRIT 37.9 % (36.0-48.0); HEMOGLOBIN 12.1 g/dL (12-16); IMMATURE GRANULOCYTES 1.8 % (0-5); LYMPHOCYTES 14.9 % (15-50); MCH 29.3 pg (26.0-34.0); MCHC 31.9 g/dL (31.0-37.0); MCV 91.8 fL (80.0-100.0); MEAN PLATELET VOLUME 9.1 fL (7.4-10.4); MONOCYTES 13.3 % (2-11); NEUTROPHILS 68.6 % (40-80); PLATELET COUNT 205 10x3/uL (130-400); RBC 4.13 10x6/uL (4.00-5.40); RDW 18.5 % (11.5-14.5)
[2017-07-07 06:01] LABS: WBC 13.6 10x3/uL (4.8-10.8)
[2017-07-07 06:02] LABS: CALC OSMOLALITY 272 mosm/kg (275-300); CALCIUM 8.5 mg/dL (8.5-10.1); CHLORIDE - SERUM 101 mmol/L (98-107); CREATININE - SERUM 0.7 mg/dL (0.6-1.3); GLUCOSE 88 mg/dL (74-106); POTASSIUM - SERUM 4.4 mmol/L (3.5-5.1); SODIUM 136 mmol/L (136-145); eGFR NON AFRICAN AMERICAN 83 mL/min (90-120)
[2017-07-07 06:04] LABS: UREA NITROGEN 17 mg/dL (7-18)
[2017-07-07 07:42] VITALS: BP 156/70
[2017-07-07 12:18] VITALS: BP 129/66
[2017-07-07 15:49] VITALS: BP 122/65
[2017-07-07 18:08] LABS: AEROBE ID Final report (())
[2017-07-07 20:00] VITALS: BP 150/75
[2017-07-08 04:00] VITALS: BP 108/62
[2017-07-08 05:42] LABS: BASOPHILS 0.1 % (0-2); EOSINOPHILS 1.1 % (0-7); HEMATOCRIT 36.9 % (36.0-48.0); HEMOGLOBIN 11.5 g/dL (12-16); IMMATURE GRANULOCYTES 1.3 % (0-5); LYMPHOCYTES 12.7 % (15-50); MCHC 31.2 g/dL (31.0-37.0); MCV 93.2 fL (80.0-100.0); MEAN PLATELET VOLUME 9.5 fL (7.4-10.4); MONOCYTES 11.6 % (2-11); NEUTROPHILS 73.2 % (40-80); PLATELET COUNT 239 10x3/uL (130-400); RBC 3.96 10x6/uL (4.00-5.40); RDW 18.5 % (11.5-14.5); WBC 14.2 10x3/uL (4.8-10.8)
[2017-07-08 05:44] LABS: ALBUMIN 2.1 g/dL (3.4-5.0); ANION GAP -4.1 mmol/L (8-16); BILIRUBIN - TOTAL 0.5 mg/dL (0.2-1.3); CALCIUM 8.3 mg/dL (8.5-10.1); CARBON DIOXIDE 33.1 mmol/L (21.0-32.0); MAGNESIUM - SERUM 1.8 mg/dL (1.8-2.4); PHOSPHOROUS 3.7 mg/dL (2.5-4.9); PROTEIN - SERUM 5.2 g/dL (6.4-8.2)
[2017-07-08 05:45] LABS: CREATININE - SERUM 0.9 mg/dL (0.6-1.3)
[2017-07-08 08:21] VITALS: BP 136/76
[2017-07-08 12:29] VITALS: BP 172/83
[2017-07-08 13:42] LABS: CKMB 1.3 U/L (0.0-3.6); TROPONIN-I < 0.017 ng/mL (0.000-0.060)
[2017-07-08 16:35] VITALS: BP 168/69
[2017-07-09 03:54] LABS: BASOPHILS 0.1 % (0-2); EOSINOPHILS 1.3 % (0-7); HEMATOCRIT 37.6 % (36.0-48.0); HEMOGLOBIN 11.8 g/dL (12-16); LYMPHOCYTES 12.7 % (15-50); MCH 29.3 pg (26.0-34.0); MCHC 31.4 g/dL (31.0-37.0); MCV 93.3 fL (80.0-100.0); MEAN PLATELET VOLUME 9.2 fL (7.4-10.4); MONOCYTES 11.1 % (2-11); NEUTROPHILS 73.8 % (40-80); PLATELET COUNT 217 10x3/uL (130-400); RBC 4.03 10x6/uL (4.00-5.40); RDW 18.1 % (11.5-14.5); WBC 12.8 10x3/uL (4.8-10.8)
[2017-07-09 04:07] LABS: ANION GAP 6.4 mmol/L (8-16); CALCIUM 8.9 mg/dL (8.5-10.1); CARBON DIOXIDE 36.1 mmol/L (21.0-32.0); CREATININE - SERUM 0.8 mg/dL (0.6-1.3); MAGNESIUM - SERUM 1.9 mg/dL (1.8-2.4); PHOSPHOROUS 3.7 mg/dL (2.5-4.9); POTASSIUM - SERUM 4.5 mmol/L (3.5-5.1)
[2017-07-09 04:20] VITALS: BP 123/86
[2017-07-09 08:23] VITALS: BP 161/84
[2017-07-09 13:53] VITALS: BP 125/68
[2017-07-09 16:41] VITALS: BP 124/65
[2017-07-10 04:00] VITALS: BP 148/79
[2017-07-10 04:59] LABS: BASOPHILS 0.1 % (0-2); EOSINOPHILS 1.5 % (0-7); HEMOGLOBIN 11.3 g/dL (12-16); IMMATURE GRANULOCYTES 0.7 % (0-5); MCHC 31.4 g/dL (31.0-37.0); MCV 92.5 fL (80.0-100.0); MEAN PLATELET VOLUME 9.4 fL (7.4-10.4); MONOCYTES 11.6 % (2-11); NEUTROPHILS 74.1 % (40-80); PLATELET COUNT 226 10x3/uL (130-400); RBC 3.89 10x6/uL (4.00-5.40); RDW 18.3 % (11.5-14.5); WBC 13.8 10x3/uL (4.8-10.8)
[2017-07-10 05:12] LABS: ANION GAP 3.3 mmol/L (8-16); CALCIUM 8.4 mg/dL (8.5-10.1); CARBON DIOXIDE 36.1 mmol/L (21.0-32.0); CREATININE - SERUM 0.9 mg/dL (0.6-1.3)
[2017-07-10 05:18] LABS: POTASSIUM - SERUM 3.4 mmol/L (3.5-5.1)
[2017-07-10 08:48] VITALS: BP 137/79
[2017-07-10 13:12] VITALS: BP 144/75
[2017-07-10 16:13] LABS: FUNGUS CULTURE RESULT 1 Candida tropicalis (()); FUNGUS MYCOLOGY CULTURE Preliminary report (())
[2017-07-10 16:45] VITALS: BP 119/66
[2017-07-13 18:11] LABS: AEROBE ID Final report (())
== END 2017-07-10 17:46 | DRG 189 ==
LOC: D.ER 11:36 → D.EDHOLD 17:06 → D.MS 17:06
PROVIDERS: Family Medicine; Internal Medicine Pulmonary Disease; Nurse Practitioner Family
PROC: 0BC38ZZ Extirpation of Matter from Right Main Bronchus, Via Natural or Artificial Opening Endoscopic (ICD-10-PCS; 2017-07-04)
PROC: 0B978ZZ Drainage of Left Main Bronchus, Via Natural or Artificial Opening Endoscopic (ICD-10-PCS; 2017-07-04)
PROC: 0B938ZZ Drainage of Right Main Bronchus, Via Natural or Artificial Opening Endoscopic (ICD-10-PCS; 2017-07-04)
PROC: 0BC78ZZ Extirpation of Matter from Left Main Bronchus, Via Natural or Artificial Opening Endoscopic (ICD-10-PCS; principal; 2017-07-04 10:00)
DX: J96.21 Acute and chronic respiratory failure with hypoxia (principal); J44.0 Chronic obstructive pulmonary disease with (acute) lower respiratory infection; J98.11 Atelectasis; J44.1 Chronic obstructive pulmonary disease with (acute) exacerbation; N39.0 Urinary tract infection, site not specified; T17.590A Other foreign object in bronchus causing asphyxiation, initial encounter; J96.22 Acute and chronic respiratory failure with hypercapnia; I10 Essential (primary) hypertension; E78.5 Hyperlipidemia, unspecified; E03.9 Hypothyroidism, unspecified; K21.9 Gastro-esophageal reflux disease without esophagitis; I48.91 Unspecified atrial fibrillation; Z99.81 Dependence on supplemental oxygen; E55.9 Vitamin D deficiency, unspecified

== ENCOUNTER 2017-07-10 16:23 | Inpatient (IN) | payer MEDICARE, OTHER ==
[~2017-07-10] VITALS: Ht 165.1 cm; Wt 54.4 kg
--- NOTE | ~2017-07-10 | RHP ---
PATIENT: BRITNEY ROB MEDICAL RECORD: [id number] ACCOUNT: [id number] LOCATION:[facility]1112 : 29 ADMISSION DATE: 07/10/17 REHABILITATION HISTORY AND PHYSICAL EXAMINATION POST ADMISSION PHYSICIAN EXAMINATION ADMITTING DIAGNOSIS: Acute exacerbation of chronic obstructive pulmonary disease. HISTORY OF PRESENT ILLNESS: The patient is admitted to inpatient rehab with COPD. She is an 87-year-old female with long-standing history there. She continues to be a smoker. She had an increasing shortness of breath and cough. She was seen in her physician's office on the day of admit on 06/26, but continued to have shortness of breath and was seen in the Emergency Room. She has a history of permanent pacemaker, COPD, hypertension, hyperlipidemia, hypothyroidism, reflux disease, atrial fibrillation. She had pneumonia times 3 and bronchitis times 2 of last year. ABG showed a pH of 7.37, pCO2 of 57, pO2 of 90, and a sat of 96%. Chest x-ray showed a right middle lobe atelectasis, COPD changes bilaterally, right middle lobe density, and 2 nodular densities in the anterior segment of the right lower lobe. D-dimer of 0.52 and INR of 1.28. Her troponin was negative. White count was elevated at 15,000. She had increased nocturnal dyspnea and also some lower leg edema. She was placed on telemetry. She had a positive UA and urine culture. She had a bronchoscopy on 07/04, found to have gram-negative jenny. She is a recent within the past year. She lives at home alone and her adult children rotate stay with her at night. She was independent with her ambulation and ADLs. States she has a rolling walker, but does not really use it very much. She is on home O2 at 2 liters via nasal cannula. She is currently set up for increased shortness of breath with ambulation, moderate assist to total assist mobility, and set up for moderate assist with her ADLs. She would like to return home at her prior level of function or better with family members continuing to do that rotation at nights, but she is mostly independent during the stay. COMORBIDITIES: Include COPD. She got a slightly positive D-dimer; right middle lobe density, atelectasis, and scarring; leukocytosis; allergic rhinitis; acute chronic and persistent use of antitussives; diarrhea; hypertension; hyperlipidemia; hypothyroidism; smoker. She got pacemaker. She got atrial fibrillation, history of gastroesophageal reflux disease, slight coagulopathy, vitamin D deficiency, and anxiety. PAST MEDICAL HISTORY: Significant for hypertension, hyperlipidemia, hypothyroidism, gastroesophageal reflux disease, atrial fib, and tobacco use. PAST SURGICAL HISTORY: Includes hysterectomy. She has had a pacemaker placement, eye surgery, appendectomy, and a broken wrist. ALLERGIES: PENICILLIN, CODEINE AND ASPIRIN. CURRENT MEDICATIONS: She is on a tapering dose of methylprednisolone, Protonix 40 mg b.i.d., Synthroid 88 mcg daily. She is on Breo 1 puff daily, vitamin D 1000 units daily, amlodipine 2.5 mg daily, sotalol 80 mg b.i.d., Mylanta 30 cc q.6 hours p.r.n., lorazepam 0.25 mg daily p.r.n., Pradaxa 150 mg b.i.d., and polyethylene glycol 17 grams in 8 ounces of water daily. HABITS: Does have a history of tobacco use. HISTORY AND PHYSICAL [id number] BRITNEY ROB FAMILY HISTORY: Noncontributory. SOCIAL HISTORY: The patient hopes to return back home. She has strong family support. REVIEW OF SYSTEMS: GENERAL: Does complain of weakness and fatigue. HEENT: Does complain cold, cough, and congestion. CARDIOVASCULAR: Denies any chest pain. LUNGS: Does complain of shortness of breath. PHYSICAL EXAMINATION: VITAL SIGNS: Stable, afebrile. GENERAL: A thin female in no acute distress, alert upon exam. HEENT: Normocephalic and atraumatic. Mucosa moist. NECK: Supple. No lymphadenopathy. LUNGS: Decreased breath sounds bilaterally. HEART: Regular rate and rhythm. ABDOMEN: Benign. EXTREMITIES: No clubbing, cyanosis. She does have a little bit of peripheral edema. NEUROLOGIC: She is grossly intact. LABORATORY DATA: Her white count is 12,000, H&H of 11.7 and 36.8, and platelet count is 229. Her sodium is 139, potassium 3.3, BUN and creatinine of 16 and 0.8, and blood sugar is noted to be 93. ASSESSMENT: This is an 87-year-old female patient admitted to rehab with a working diagnosis of chronic obstructive pulmonary disease exacerbation. The patient has potential to make improvement. We instituted the following multidisciplinary therapies including, but not limited to physical, occupational, respiratory, speech, nutritional services, prosthetics, and orthotics. Given the complex condition and risk for more complications, rehabilitation services cannot provided at a lower level of care such as halfway facility. PLAN: 1. Admit to [facility] rehab for inpatient therapy to include the following disciplines: A. Physical therapy for gait, all transfer skills and bed mobility to a modified independent level. B. Occupational therapy to improve activities of daily living to a modified independent level. C. Case management to assist with discharge planning and placement options. D. Nutrition to assist with nutritional needs. E. Rehabilitation nursing to assist in monitoring the patient's underlying medical conditions and to assist with any type of bowel or bladder management. 2. The patient's current medication and medical care will be continued. 3. The patient will be placed on standard fall precautions. 4. The patient estimated length of stay is approximately 7-10 days. 5. Discussed with the patient care team staff meeting this week. TRANSINT:[id number] Voice Confirmation ID: [id number] DOCUMENT ID: [id number] HISTORY AND PHYSICAL [id number] BRITNEY ROB notes whether there has been none or any medical/functional change since admission: - No change since prescreen. RENÉE attests patient continues to be appropriate for IRF: - Continues to be appropriate. FEROZ ALAN MD at 1012 CC: [id number] DICTATION DATE: 07/11/17 0831 SAW SHARPENER: 07/11/17 1132 ADM IN [facility] [address] [id number]
--- NOTE | ~2017-07-10 | DS ---
PATIENT:BRITNEY ROB :[birth year] MEDICAL RECORD: [id number] DISCHARGE SUMMARY ADMISSION DATE: 07/10/17 DISCHARGE DATE: 07/21/17 This is a discharge dated 07/21/2017 from inpatient rehabilitation. PRIMARY DIAGNOSIS: Decreased functional ability and ability to provide activities of daily living secondary to chronic obstructive pulmonary disease exacerbation. SECONDARY DIAGNOSES: 1. Tobacco abuse. 2. Acute on chronic hypoxic respiratory failure. 3. Gastroesophageal reflux disease. 4. Anxiety. 5. Hypothyroidism. 6. Hyperlipidemia. 7. Hypertension. 8. Vitamin D deficiency. 9. Atrial fibrillation. 10. History of permanent pacemaker placement. HOSPITAL COURSE: Full H&P is located elsewhere on the chart on this 87-year-old female who was admitted to inpatient rehab for physical therapy and occupational therapy to improve gait, transfer skills, bed mobility, and activities of daily living to a modified independent level. She was evaluated by PT and OT and their plans of care were followed. She required fci care for observation and assessment and medication administration. She remained on inhaled medications for respiratory support with supplemental oxygen. Electrolytes were managed by protocol. She was on a steroid taper for COPD exacerbation. She was cooperative with therapies, progressing towards goals. Case management was involved for discharge planning. She was able to walk 250 feet with standby assistance and was moderately independent with ADLs and considered stable for discharge on 07/21/2017. DISCHARGE MEDICATIONS: As per discharge medication reconciliation. DISCHARGE DISPOSITION: The patient is discharged home. She will continue her current diet and level of activity. She will have home health for continued PT and OT and will follow up with primary care and specialists as directed. At least 30 minutes was spent in this discharge activity. TRANSINT:[id number] Voice Confirmation ID: [id number] DOCUMENT ID: [id number] Dictated By: LAVINIA BAH I have interviewed/examined the above patient and agree with these documented findings. DISCHARGE SUMMARY REPORT [id number] LUIS ALFREDO ROBJORIAc Roman FEROZ ALAN MD at 1710 at 1712 CC: [id number] DICTATION DATE: 08/12/17 1614 FLOOR REPRESENTATIVE: 08/12/17 1727 DIS IN 07/21/17 [facility] [address] [place] [address]
[2017-07-10 18:40] VITALS: BP 125/70
[2017-07-10 19:00] VITALS: BP 133/70
[2017-07-11 07:31] LABS: BASOPHILS 0 % (0-2); EOSINOPHILS 1.6 % (0-7); HEMATOCRIT 36.8 % (36.0-48.0); HEMOGLOBIN 11.7 g/dL (12-16); IMMATURE GRANULOCYTES 0.7 % (0-5); LYMPHOCYTES 13.4 % (15-50); MCH 29.4 pg (26.0-34.0); MCHC 31.8 g/dL (31.0-37.0); MCV 92.5 fL (80.0-100.0); MEAN PLATELET VOLUME 9.5 fL (7.4-10.4); MONOCYTES 12.7 % (2-11); NEUTROPHILS 71.6 % (40-80); PLATELET COUNT 229 10x3/uL (130-400); RBC 3.98 10x6/uL (4.00-5.40); RDW 18.7 % (11.5-14.5)
[2017-07-11 07:48] LABS: ANION GAP 9.7 mmol/L (8-16); CALCIUM 8.8 mg/dL (8.5-10.1); CARBON DIOXIDE 29.6 mmol/L (21.0-32.0); CREATININE - SERUM 0.8 mg/dL (0.6-1.3); POTASSIUM - SERUM 3.3 mmol/L (3.5-5.1)
[2017-07-11 08:21] VITALS: BP 122/65
[2017-07-11 09:48] VITALS: Ht 165.1 cm; Wt 54.4 kg
[2017-07-11 19:05] VITALS: BP 116/55
[2017-07-12 07:33] VITALS: BP 132/71
[2017-07-12 19:15] VITALS: BP 139/63
[2017-07-13 06:03] LABS: ANION GAP 10.3 mmol/L (8-16); CALCIUM 8.7 mg/dL (8.5-10.1); CARBON DIOXIDE 30.2 mmol/L (21.0-32.0); CREATININE - SERUM 0.9 mg/dL (0.6-1.3); POTASSIUM - SERUM 3.5 mmol/L (3.5-5.1)
[2017-07-13 06:26] LABS: BASOPHILS 0 % (0-2); EOSINOPHILS 0 % (0-7); HEMATOCRIT 34.5 % (36.0-48.0); HEMOGLOBIN 10.9 g/dL (12-16); IMMATURE GRANULOCYTES 0.4 % (0-5); LYMPHOCYTES 4.5 % (15-50); MCH 29.4 pg (26.0-34.0); MCHC 31.6 g/dL (31.0-37.0); MEAN PLATELET VOLUME 9.6 fL (7.4-10.4); MONOCYTES 5.2 % (2-11); NEUTROPHILS 89.9 % (40-80); PLATELET COUNT 247 10x3/uL (130-400); RBC 3.71 10x6/uL (4.00-5.40); RDW 18.9 % (11.5-14.5); WBC 11.9 10x3/uL (4.8-10.8)
[2017-07-13 08:03] VITALS: BP 140/71
[2017-07-13 19:00] VITALS: BP 118/66
[2017-07-14 07:00] VITALS: BP 143/73
[2017-07-14 21:00] VITALS: BP 111/58
[2017-07-15 08:00] VITALS: BP 107/67
[2017-07-15 22:20] VITALS: BP 147/73
[2017-07-16 07:45] LABS: BASOPHILS 0.1 % (0-2); EOSINOPHILS 0.4 % (0-7); HEMATOCRIT 36.4 % (36.0-48.0); HEMOGLOBIN 11.1 g/dL (12-16); IMMATURE GRANULOCYTES 0.5 % (0-5); MCH 29.3 pg (26.0-34.0); MCHC 30.5 g/dL (31.0-37.0); MEAN PLATELET VOLUME 9.2 fL (7.4-10.4); PLATELET COUNT 204 10x3/uL (130-400); RBC 3.79 10x6/uL (4.00-5.40); RDW 19.1 % (11.5-14.5); WBC 11.4 10x3/uL (4.8-10.8)
[2017-07-16 08:00] VITALS: BP 152/74
[2017-07-16 08:17] LABS: CALCIUM 8.6 mg/dL (8.5-10.1); CARBON DIOXIDE 33.6 mmol/L (21.0-32.0); CREATININE - SERUM 0.9 mg/dL (0.6-1.3); POTASSIUM - SERUM 3.6 mmol/L (3.5-5.1)
[2017-07-16 20:09] VITALS: BP 128/60
[2017-07-17 07:44] VITALS: BP 131/63
[2017-07-17 19:27] VITALS: BP 136/58
[2017-07-18 07:00] LABS: BASOPHILS 0.1 % (0-2); EOSINOPHILS 2.7 % (0-7); HEMATOCRIT 32.9 % (36.0-48.0); IMMATURE GRANULOCYTES 0.5 % (0-5); LYMPHOCYTES 17.4 % (15-50); MCH 29.4 pg (26.0-34.0); MCHC 30.4 g/dL (31.0-37.0); MCV 96.8 fL (80.0-100.0); MEAN PLATELET VOLUME 9.2 fL (7.4-10.4); MONOCYTES 10.1 % (2-11); NEUTROPHILS 69.2 % (40-80); PLATELET COUNT 200 10x3/uL (130-400); RDW 19.2 % (11.5-14.5)
[2017-07-18 07:06] LABS: WBC 7.7 10x3/uL (4.8-10.8)
[2017-07-18 07:09] LABS: CALC OSMOLALITY 286 mosm/kg (275-300); CALCIUM 8.3 mg/dL (8.5-10.1); CARBON DIOXIDE 36.6 mmol/L (21.0-32.0); CHLORIDE - SERUM 105 mmol/L (98-107); CREATININE - SERUM 0.7 mg/dL (0.6-1.3); GLUCOSE 92 mg/dL (74-106); POTASSIUM - SERUM 3.6 mmol/L (3.5-5.1); SODIUM 144 mmol/L (136-145); eGFR NON AFRICAN AMERICAN 83 mL/min (90-120)
[2017-07-18 07:13] LABS: UREA NITROGEN 13 mg/dL (7-18)
[2017-07-18 07:38] VITALS: BP 139/72
[2017-07-18 19:00] VITALS: BP 123/62
[2017-07-19 07:52] VITALS: BP 142/75
[2017-07-19 19:00] VITALS: BP 139/70
[2017-07-20 08:19] VITALS: BP 123/65
[2017-07-20 19:00] VITALS: BP 128/58
[2017-07-21 06:12] LABS: BASOPHILS 0.2 % (0-2); EOSINOPHILS 4.3 % (0-7); HEMOGLOBIN 10.2 g/dL (12-16); IMMATURE GRANULOCYTES 0.4 % (0-5); LYMPHOCYTES 25.6 % (15-50); MCH 29.7 pg (26.0-34.0); MCHC 30.9 g/dL (31.0-37.0); MCV 96.2 fL (80.0-100.0); MEAN PLATELET VOLUME 8.6 fL (7.4-10.4); MONOCYTES 14.4 % (2-11); NEUTROPHILS 55.1 % (40-80); PLATELET COUNT 217 10x3/uL (130-400); RBC 3.43 10x6/uL (4.00-5.40); RDW 18.8 % (11.5-14.5); WBC 5.2 10x3/uL (4.8-10.8)
[2017-07-21 06:27] LABS: ANION GAP 6.4 mmol/L (8-16); CALCIUM 8.3 mg/dL (8.5-10.1); CARBON DIOXIDE 34.9 mmol/L (21.0-32.0); CREATININE - SERUM 0.8 mg/dL (0.6-1.3); POTASSIUM - SERUM 3.3 mmol/L (3.5-5.1)
[2017-07-21 07:40] VITALS: BP 149/69
== END 2017-07-21 12:30 | disposition home health service (06) | DRG 190 ==
LOC: D.REHAB 16:23
PROVIDERS: Emergency Medicine
DX: J44.1 Chronic obstructive pulmonary disease with (acute) exacerbation (principal); J96.21 Acute and chronic respiratory failure with hypoxia; J96.22 Acute and chronic respiratory failure with hypercapnia; J98.11 Atelectasis; F17.200 Nicotine dependence, unspecified, uncomplicated; Z95.0 Presence of cardiac pacemaker; I10 Essential (primary) hypertension; E78.5 Hyperlipidemia, unspecified; E03.9 Hypothyroidism, unspecified; K21.9 Gastro-esophageal reflux disease without esophagitis; I48.91 Unspecified atrial fibrillation; E55.9 Vitamin D deficiency, unspecified; F41.9 Anxiety disorder, unspecified; D72.829 Elevated white blood cell count, unspecified; J30.9 Allergic rhinitis, unspecified; R19.7 Diarrhea, unspecified

== ENCOUNTER 2018-03-25 10:32 | Inpatient (IN) | payer MEDICARE, OTHER ==
[~2018-03-25] VITALS: Ht 165.1 cm; Wt 55.5 kg
[2018-03-25] MEDS ORDERED: VENTOLIN (10:40)
[2018-03-25 11:38] LABS: BASOPHILS 0.2 % (0-2); EOSINOPHILS 2.7 % (0-7); HEMATOCRIT 39.1 % (36.0-48.0); IMMATURE GRANULOCYTES 0.1 % (0-5); LYMPHOCYTES 7.2 % (15-50); MCH 30.2 pg (26.0-34.0); MCHC 30.7 g/dL (31.0-37.0); MCV 98.5 fL (80.0-100.0); MEAN PLATELET VOLUME 9.3 fL (7.4-10.4); MONOCYTES 4.2 % (2-11); NEUTROPHILS 85.6 % (40-80); RBC 3.97 10x6/uL (4.00-5.40); RDW 16.3 % (11.5-14.5); WBC 9.9 10x3/uL (4.8-10.8)
[2018-03-25 11:48] LABS: PLATELET COUNT 303 10x3/uL (130-400)
[2018-03-25 11:50] LABS: ALBUMIN 3.2 g/dL (3.4-5.0); ALKALINE PHOSPHATASE 87 U/L (46-116); ALT (SGPT) 15 U/L (10-68); BILIRUBIN - TOTAL 0.38 mg/dL (0.2-1.3); CALC OSMOLALITY 284 mosm/kg (275-300); CALCIUM 8.9 mg/dL (8.5-10.1); CARBON DIOXIDE 35.2 mmol/L (21.0-32.0); CHLORIDE - SERUM 103 mmol/L (98-107); CREATININE - SERUM 0.9 mg/dL (0.6-1.3); GLUCOSE 116 mg/dL (74-106); POTASSIUM - SERUM 4.7 mmol/L (3.5-5.1); PROTEIN - SERUM 6.9 g/dL (6.4-8.2); SODIUM 142 mmol/L (136-145); UREA NITROGEN 15 mg/dL (7-18); eGFR NON AFRICAN AMERICAN 62 mL/min (90-120)
[2018-03-25 11:51] LABS: APTT 37.9 SECONDS (22.8-39.4); INR 1.3 (0.85-1.17); PROTIME 15.6 SECONDS (11.6-15.0)
[2018-03-25 12:02] LABS: CKMB 0.9 U/L (0.0-3.6); CREATINE KINASE 29 UL (21-215); PRO BNP 399 pg/mL (0-450); TROPONIN-I < 0.017 ng/mL (0.000-0.060)
--- NOTE | 2018-03-25 12:10 | NUR ---
O2 VIA NC DC'D AND RT INITIATED BPAP PER EDP ORDER.
--- NOTE | 2018-03-25 12:41 | NUR ---
PT OBSERVED SITTING IN HIGH-GARSIA'S. NO SIGNS OF DISTRESS. BIPAP IN PLACE. PT DENIES ANY NEEDS. CALL LIGHT IN REACH AND FAMILY AT THE BEDSIDE. WILL CONTINUE TO MONITOR.
--- NOTE | 2018-03-25 13:36 | NUR ---
ROOM 2101 ASSIGNED AT 1320. THIS NURSE ATTEMTPED TO CALL REPORT AT 1331. NURSE UNAVAILABLE, WILL ATTEMPT TO CALL REPORT AGAIN SHORTLY.
[2018-03-25] MEDS ORDERED: COZAAR25 MG PO (14:00)
[2018-03-25] MEDS ORDERED: COZAAR50 MG PO (14:02)
--- NOTE | 2018-03-25 14:35 | NUR ---
MED REC AND ADMISSION HISTORY COMPLETED. RN TO DO ADMISSION ASSESSMENT. PT SITTING UP IN BED. EATING LUNCH TRAY. FAMILY AT BEDSIDE.
[2018-03-25 15:11] VITALS: BMI 21.1
--- NOTE | 2018-03-25 15:11 | NUR ---
ASSESSMENT COMPLETE PT AAOX4 SKIN W/D COLOR WNL PT DENIES ANY NEEDS OR DISCOMFORT AT THIS TIME NAD NOTED
--- NOTE | 2018-03-25 15:26 | MORECARE ---
CASE MANAGEMENT DISCHARGE SUMMARY PATIENT: BRITNEY ROB UNIT: [id number] ADM DATE: 03/25/18 AGE: 88 : 29 SEX: F ROOM/BED: D.7966 AUTHOR: PORTIA FULLER PHYSICIAN: REFERRING PHYSICIAN: TUNDE VALENTIN DO DATE OF SERVICE: 03/25/18 Discharge Plan Patient Name: BRITNEY ROB Facility: [facility]:[place] : 1930 Planned Disposition: Home Anticipated Discharge Date: 03/28/18 Discharge Date: Expected LOS: 3 Initial Reviewer: [email or web address] Initial Review Date: 03/25/2018 Generated: 03/25/18 4:26 pm DCP- Discharge Planning Updated by [email or web address]: Rosa Clemons on 03/25/18 2:[address] Patient Name: BRITNEY ROB Admission Status: Elective Accout number: [id number] Admission Date: 03-25-2018 : 1930 Admission Diagnosis: Attending: TUNDE VALENTIN Current LOS: 1 Anticipated DC Date: 03-28-2018 Planned Disposition: Home Primary Insurance: MEDICARE A & B Discharge Planning Comments: CM met with patient and her daughterVaishnavi to complete initial dc planning assessment. CM educated patient and her daughter on the CM role and verbal consent given by patient to complete assessment. Patient has been placed on BIPAP in the ER so her daughter whom is also her POA completed assessment with patient's permission. Patient lives at home alone but there is a family member that stays with her every night. She is alone some during the day but never at night. At discharge patient plans to return home and feels this is a safe discharge. CM discussed availability of home health, rehab services, and medical equipment. Patient and daughter both denied known discharge needs at this time. They both felt like home health was not needed. CM will continue to follow and will assist as needed with dc plans/needs. Healthcare Management Consultant: Rosa Clemons RN, [facility] DCPIA - Discharge Planning Initial Assessment Updated by [email or web address]: Rosa Clemons on 03/25/18 3:19 pm * Is the patient Alert and Oriented? Yes * How many steps to enter\exit or inside your home? 6-7 * PCP Dr. Ghosh[facility] * Pharm[place] [facility] [place] * Preadmission Environment Home with Family * ADLs Independent * Equipment Nebulizer Oxygen Walker * Other Equipment [facility] Patient is 02 provider. * List name and contact numbers for known caregivers / representatives who currently or will assist patient after discharge: Vaishnavi JENSEN, Daughter - [phone] * Verbal permission to speak to the caregivers and representatives has been obtained from the patient. Yes * Community resources currently utilized None * Additional services required to return to the preadmission environment? No * Can the patient safely return to the preadmission environment? Yes * Has this patient been hospitalized within the prior 30 days at any hospital? No Patient Name: BRITNEY ROB Page [phone] at 1526 All edits/amendments must be made on the electronic document DICTATION DATE: 03/25/181524 WEBBING TACKER: LAUREN 03/25/18 1525 RPT#: [id number] DC DATE: STATUS: ADM IN [facility] [address] [place] [address] END OF REPORT
--- NOTE | 2018-03-25 16:02 | NUR ---
DR. TOMLINSON STATES PT ONLY NEEDS TO WEAR THE BIPAP AT NIGHT.
--- NOTE | 2018-03-25 17:27 | NUR ---
PT WANTING A BREATHING TREATMENT CALLED RESPIRATORY AND JOVANA STATED OK.
--- NOTE | 2018-03-25 17:39 | NUR ---
PT'S FAMILY MEMEBER CAME TO NURSE STATION C/O ANTS IN PT'S ROOM. WORK ORDER PUT IN. CREDIT ADMINISTRATION OFFICER PAGED OVERHEAD. PT TO BE MOVED TO ROOM 7655.
--- NOTE | 2018-03-25 17:57 | NUR ---
PT MOVED TO ROOM 2124. PT STILL WAITIN ON PRN BREATHING TREATMENT. CALLED RT AND STATED TO THEM PT STATES SHE HAS BEEN WAITING FOR TWO HOURS THEY STATED OK.
--- NOTE | 2018-03-25 19:47 | NUR ---
RESUMED CARE OF PT, LYING IN BED RESPIRATIONS EVEN AND UNLABORED ON 3.5 LPM VIA NC. 110 UCAF ON TELEMETRY. LEFT AC INFUSING NS @ 100. PLAN OF CARE DISCUSSED. SEE NURSE ASESSSMENT.
[2018-03-25 20:00] VITALS: BP 113/72
[2018-03-26] VITALS: BP 133/77
--- NOTE | 2018-03-26 05:15 | NUR ---
PT SUCCESSFULLY WORE BIPAP FROM 1130 PM 03/25/18 TO 0500 03/26/18 APPEARS ALERT AND FULLY AWAKE PLACED ON 2L NC
[2018-03-26 05:20] VITALS: BP 134/73
[2018-03-26 06:40] LABS: BASOPHILS 0 % (0-2); EOSINOPHILS 0 % (0-7); HEMATOCRIT 37.8 % (36.0-48.0); HEMOGLOBIN 11.6 g/dL (12-16); IMMATURE GRANULOCYTES 0.1 % (0-5); LYMPHOCYTES 6.5 % (15-50); MCH 29.8 pg (26.0-34.0); MCHC 30.7 g/dL (31.0-37.0); MCV 97.2 fL (80.0-100.0); MEAN PLATELET VOLUME 9.3 fL (7.4-10.4); MONOCYTES 2.3 % (2-11); NEUTROPHILS 91.1 % (40-80); PLATELET COUNT 289 10x3/uL (130-400); RBC 3.89 10x6/uL (4.00-5.40); RDW 16.5 % (11.5-14.5); WBC 8.6 10x3/uL (4.8-10.8)
[2018-03-26 07:01] LABS: ALBUMIN 2.7 g/dL (3.4-5.0); ANION GAP 9.4 mmol/L (8-16); BILIRUBIN - TOTAL 0.28 mg/dL (0.2-1.3); CALCIUM 8.3 mg/dL (8.5-10.1); CARBON DIOXIDE 30.6 mmol/L (21.0-32.0); CREATININE - SERUM 0.8 mg/dL (0.6-1.3); PROTEIN - SERUM 6.2 g/dL (6.4-8.2)
--- NOTE | 2018-03-26 07:25 | NUR ---
ASSESSMENT COMPLETED. ALERT AND ORIENTED. TELEMERTY SHOWS SR. LEFT AC IV WITH NS AT 100. DENIES ANY NEEDS. SR UP WITH CALL LIGHT IN REACH. WILL MONITOR
[2018-03-26 09:17] VITALS: BP 160/79
[2018-03-26 11:46] VITALS: BP 128/54
[2018-03-26 12:20] VITALS: BMI 21.1
[2018-03-26 14:03] VITALS: Ht 165.1 cm; Wt 55.5 kg
[2018-03-26 15:46] VITALS: BP 136/70
--- NOTE | 2018-03-26 15:56 | NUR ---
PT SUCCESFULY WORE BIPAP FROM 1400 TO 1600.
--- NOTE | 2018-03-26 18:52 | NUR ---
LYING QUIETLY WITH FAMILY AT BEDSIDE. NO NEEDS VOICED
--- NOTE | 2018-03-26 19:30 | NUR ---
RESUMING PATIENT CARE. PATIENT IS ALERT AND ORIENTED. PATIENT RESTING COMFORTABLY IN BED. RESPIRATIONS ARE EVEN AND UNLABORED. NO S/S OF DISTRESS. NO C/O PAIN. CALL LIGHT WITHIN REACH. PATIENT BOARD UPDATED. WILL CPOC.
[2018-03-26 20:00] VITALS: BP 156/70
[2018-03-27 04:00] VITALS: BP 149/70
[2018-03-27 05:36] LABS: BASOPHILS 0 % (0-2); EOSINOPHILS 0 % (0-7); HEMATOCRIT 35.2 % (36.0-48.0); HEMOGLOBIN 10.7 g/dL (12-16); IMMATURE GRANULOCYTES 0.4 % (0-5); LYMPHOCYTES 3.5 % (15-50); MCH 29.6 pg (26.0-34.0); MCHC 30.4 g/dL (31.0-37.0); MCV 97.5 fL (80.0-100.0); MEAN PLATELET VOLUME 9.4 fL (7.4-10.4); MONOCYTES 3.3 % (2-11); NEUTROPHILS 92.8 % (40-80); PLATELET COUNT 338 10x3/uL (130-400); RBC 3.61 10x6/uL (4.00-5.40)
[2018-03-27 05:43] LABS: WBC 15.8 10x3/uL (4.8-10.8)
[2018-03-27 06:00] LABS: ALBUMIN 2.7 g/dL (3.4-5.0); ANION GAP 12.6 mmol/L (8-16); BILIRUBIN - TOTAL 0.22 mg/dL (0.2-1.3); CALCIUM 8.1 mg/dL (8.5-10.1); CARBON DIOXIDE 27.7 mmol/L (21.0-32.0); CREATININE - SERUM 0.9 mg/dL (0.6-1.3); MAGNESIUM - SERUM 2.3 mg/dL (1.8-2.4); POTASSIUM - SERUM 4.3 mmol/L (3.5-5.1); PROTEIN - SERUM 5.9 g/dL (6.4-8.2)
[2018-03-27 07:47] VITALS: BP 157/73
--- NOTE | 2018-03-27 08:17 | NUR ---
AM ROUNDS COMPLETED. INTRODUCED MYSELF TO PT PRIMARY RN FOR TODAYS SHIFT. PT IS A&O LYING BACK IN BED RESTING QUIETLY WITH DAUGHTER AT BEDSIDE. PT STATES SHE SLEPT WELL DENIES ANY CURRENT PAIN OR NEEDS. WILL CHECK CHART AND ORDERS AND CPOC.
[2018-03-27 11:10] VITALS: BP 159/77
--- NOTE | 2018-03-27 13:58 | NUR ---
PT IS REFUSING TO GET OOB. SHE STATES "IM JUST TOO TIRED AND WEAK" SHE STATES SHE WILL ONLY USE A BEDPAN UNTIL SHE REGAINS HER STRENGTH HOWEVER THEN REFUSED PHYSICAL THERAPY R/T FEELING "TOO WEAK" PT LIVES AT HOME ALONE AND STATES SHE AMBULATES WITH NO ASSISTANCE AT HOME BUT THAT WAS BEFORE SHE WAS SICK. WILL KEEP ENCOURAGING PT AND CPOC. NO IMMEDIATE NEEDS AT THIS TIME. WILL CTM.
[2018-03-27 15:28] VITALS: BP 134/75
--- NOTE | 2018-03-27 17:45 | NUR ---
PT FINALLY GOT UP WITH THERAPY AND WAS INDEPENDENT BUT STATES SHE IS STILL TOO WEAK. PT IS DOING VERY WELL JUST NEEDS MOTIVATED AND CUED OFTEN. PT VOICED THANKS AND UNDERSTANDS TO CALL FOR HELP AND NOT USE BEDPAN AND TRY TO REMAIN INDEPENDENT BEFORE. NO IMMEDIATE NEEDS. WILL CTM.
--- NOTE | 2018-03-27 19:31 | NUR ---
RESUMING PATIENT CARE. PATIENT IS ALERT AND ORIENTED. PATIENT SITTING UP IN BED. PATIENT RECEIVING BREATHING TX AT THIS TIME. RESPIRATIONS ARE EVEN AND UNLABORED. NO S/S OF DISTRESS. NO C/O PAIN. PATIENT BOARD UPDATED. CALL LIGHT WITHIN REACH. FAMILY AT BEDSIDE. WILL CPOC.
[2018-03-27 20:00] VITALS: BP 190/89
[2018-03-28] VITALS (7 sets, daily range): BP systolic 140–201; BP diastolic 80–106
[2018-03-28 05:53] LABS: BASOPHILS 0 % (0-2); EOSINOPHILS 0 % (0-7); HEMATOCRIT 34.9 % (36.0-48.0); HEMOGLOBIN 10.7 g/dL (12-16); IMMATURE GRANULOCYTES 0.3 % (0-5); LYMPHOCYTES 4.8 % (15-50); MCH 29.7 pg (26.0-34.0); MCHC 30.7 g/dL (31.0-37.0); MCV 96.9 fL (80.0-100.0); MEAN PLATELET VOLUME 9.3 fL (7.4-10.4); MONOCYTES 5.7 % (2-11); NEUTROPHILS 89.2 % (40-80); PLATELET COUNT 303 10x3/uL (130-400); RDW 17.2 % (11.5-14.5)
[2018-03-28 06:08] LABS: WBC 11.7 10x3/uL (4.8-10.8)
[2018-03-28 06:26] LABS: ALBUMIN 2.4 g/dL (3.4-5.0); ANION GAP 11.6 mmol/L (8-16); BILIRUBIN - TOTAL 0.32 mg/dL (0.2-1.3); CARBON DIOXIDE 27.9 mmol/L (21.0-32.0); CREATININE - SERUM 0.9 mg/dL (0.6-1.3); MAGNESIUM - SERUM 2.2 mg/dL (1.8-2.4); POTASSIUM - SERUM 4.5 mmol/L (3.5-5.1); PROTEIN - SERUM 5.4 g/dL (6.4-8.2)
--- NOTE | 2018-03-28 08:26 | NUR ---
AM ROUNDS COMPLETED. INTRODUCED MYSELF TO PT PRIMARY RN FOR TODAYS SHIFT. PT IS A&O WANTING ASSISTANCE UP IN BED TO EAT. SHIFT ASSESSMENT COMPLETED AND PULLED PT UP IN BED TO EAT PROPERLY. PT STILL C/O BURNING ANYTIME SHE TRIES TO EAT. SHE THOUGHT IT WAS THE BIPAP HOWEVER THAT WAS HELD OVERNIGHT AND SHE STATES IT LORENZANA AND SHE NEEDS "BABY FOOD" DID ORDER PT A VANILLA SHAKE AND SHE STATES SHE CAN DRINK THAT. PT ALSO FEELS LIKE FOOD GETS STUCK IN HER LOWER THROAT AFTER SWALLOWING. PT IS ON PROTONIX HOWEVER MAY BENEFIT FROM CARAFATE, WILL DISCUSS WITH PRIMARY AND INQUIRE. PT SWALLOWED ALL HER AM MEDICATIONS WITHOUT ANY BURNING OR DIFFICULTIES SWALLOWING. PT REFUSED WANTING A NICOTENE PATCH AND STATES "IM NOT CRAVING CIGARETTES" PT VOICED THANKS AND DENIES ANY FURTHER NEEDS AT THIS TIME. NO FAMILY CURRENT PRESENT AND PT IS MORE CALM THIS MORNING AND DOING WELL. WILL KEEP MOTIVATING PT TO BE INDEPENDENT AND MOBILE TO TRY TO REGAIN PREVIOUS STRENGTH SHE LIVES HOME ALONE. CL IN REACH, BED IN LOWEST, SIDE RAILS X2. WILL CTM.
--- NOTE | 2018-03-28 10:41 | NUR ---
PT AMBULATED 175FT WITH PHYSICAL THERAPY AND WAS VERY STEADY AND DID GREAT. PT DID COMPLAIN ABOUT THE WALK HOWEVER DID WELL. WAS ABLE TO GET PT SOMETHING ORDERED TO COAT HER THROAT. SHE IS THANKFUL. NO CURRENT NEEDS. WILL CTM.
--- NOTE | 2018-03-28 15:26 | NUR ---
AT BEDSIDE REVIEWING PLAN OF CARE. PT STILL C/O HER THROAT BURNING AND "NOTHING" HELPING IT. NEW SOLUTION ORDERED TO SEE IF IT WILL HELP SOOTHE IT. WILL CTM.
--- NOTE | 2018-03-28 17:20 | NUR ---
WAITING ON PTS LIDOCAINE SOLUTION FOR BURNING THROAT. CALLED PHARMACY. WILL PROVIDE WHEN AVAILABLE FROM PHARMACY.
--- NOTE | 2018-03-28 19:22 | NUR ---
RESUMING PATIENT CARE. PATIENT IS ALERT AND ORIENTED. RESPIRATIONS ARE EVEN AND UNLABORED. PATIENT SPEAKING WITH DR. VALENTIN. FAMILY AT BEDSIDE. NO S/S OF DISTRESS. NO C/O PAIN. CALL LIGHT WITHIN REACH. PATIENT BOARD UPDATED. WILL CPOC.
[2018-03-29] VITALS: BP 182/92
--- NOTE | 2018-03-29 01:02 | NUR ---
PATIENT RESTING COMFORTABLY IN BED. RESPIRATIONS ARE EVEN AND UNLABORED. NO S/S OF DISTRESS. NO C/O PAIN. CALL LIGHT WITHIN REACH. WILL CPOC.
[2018-03-29 04:00] VITALS: BP 153/84
--- NOTE | 2018-03-29 05:02 | NUR ---
PATIENT SLEPT FROM 2300 TO PRESENT. PATIENT HAS GOTTEN UP PERIODICALLY TO USE THE RESTROOM. PATIENT DID NOT USE BI PAP. NO S/S OF DISTRESS. CALL LIGHT WITHIN REACH. WILL CPOC.
[2018-03-29 06:20] LABS: BASOPHILS 0 % (0-2); EOSINOPHILS 0 % (0-7); HEMATOCRIT 39.7 % (36.0-48.0); HEMOGLOBIN 12.6 g/dL (12-16); IMMATURE GRANULOCYTES 0.5 % (0-5); LYMPHOCYTES 4.6 % (15-50); MCH 30.4 pg (26.0-34.0); MCHC 31.7 g/dL (31.0-37.0); MCV 95.7 fL (80.0-100.0); MEAN PLATELET VOLUME 9.9 fL (7.4-10.4); MONOCYTES 5.5 % (2-11); NEUTROPHILS 89.4 % (40-80); PLATELET COUNT 359 10x3/uL (130-400); RBC 4.15 10x6/uL (4.00-5.40); RDW 16.6 % (11.5-14.5); WBC 11.1 10x3/uL (4.8-10.8)
[2018-03-29 06:37] LABS: ALBUMIN 2.7 g/dL (3.4-5.0); ANION GAP 11.3 mmol/L (8-16); BILIRUBIN - TOTAL 0.51 mg/dL (0.2-1.3); CALCIUM 8.1 mg/dL (8.5-10.1); CARBON DIOXIDE 28.7 mmol/L (21.0-32.0); CREATININE - SERUM 0.8 mg/dL (0.6-1.3); MAGNESIUM - SERUM 2.3 mg/dL (1.8-2.4)
--- NOTE | 2018-03-29 07:10 | NUR ---
REPORT RECEVIED FROM RELOCATION SERVICES SPECIALIST. PATIENT LAYING ON BACK IN BED WITH EYES CLOSED AND BREATHING EVENLY. WILL CONTINUE WITH PLAN OF CARE. SR UP X 2 BED IN LOW POSITON AND CALL LIGHT IN REACH.
[2018-03-29 08:15] VITALS: BP 177/97
--- NOTE | 2018-03-29 09:30 | NUR ---
PT AMBULATING PATIENT ON UNIT. PATIENT TOLERATING WELL. WILL CONTINUE TO MONITOR.
--- NOTE | 2018-03-29 10:00 | NUR ---
DR VALENTIN ON UNIT AND ORDER FOR GI CONSULT MADE.
--- NOTE | 2018-03-29 11:30 | NUR ---
DR TOMLINSON ON UNIT. NEW ORDERS RECEIVED. WILL CONTINUE TO MONITOR PATIENT. FAMILY AT BEDSIDE.
[2018-03-29 11:41] VITALS: BP 201/96
--- NOTE | 2018-03-29 14:15 | NUR ---
Nutrition Follow Up: Pt stated that her throat is very sore and when she eats she feels that it sue badly. Pt refused supplements at this time. RD encouraged pt to make staff aware of food preferences and food that may be tolerated. Diet: Regular PO Intake: 36% meal avg BM: 03/26/18 Wt stable Labs and meds reviewed Rec continue current diet. Will honor food preferences. RD following.
--- NOTE | 2018-03-29 14:27 | NUR ---
PATIENT SITTING UP IN BED AWAKE AND ALERT. PATIENT DENIES ANY NEEDS OR PAIN. FAMILY AT BEDSIDE. WILL CONTINUE TO MONITOR.
[2018-03-29 19:55] VITALS: BP 184/94
--- NOTE | 2018-03-29 22:34 | NUR ---
INITIAL ROUNDS COMPLETED AT 1910 HRS. PT DENIED ANY DISCOMFORT. FAMILY AT BEDSIDE. ASSESSMENT COMPLETED AT 1935 HRS. SR PER CM HR 74. O2 3LNC. ALERT AND ORIENTED TO PERSON, PLACE AND TIME. NOEL. IV TO LAC WITH ZITHROMAX INFUSING. SCATTERED INSP AND EXP WHEEZES NOTED TO UPPER R LOBE. LUNGS DIMINISHED IN BASES BILAT. NOEL. DR KIM IN TO EVAL AROUND 1999 HRS. NEW ORDERS RECEIVED. PM MEDS GIVEN. EGD EXPLAINED TO PT AND FAMILY PERMITS SIGNED. PT CURRENTLY RESTING WITH EYES CLOSED. RESP EVEN AND REGULAR. S RUP X2, CALL LIGHT WITHIN REACH.
[2018-03-30 00:35] VITALS: BP 141/83
--- NOTE | 2018-03-30 02:24 | NUR ---
PT RESTING WITH EYES CLOSED. RESP EVEN AND REGULAR. SR UP X2, CALL LIGHT WITHIN REACH.
[2018-03-30 03:50] VITALS: BP 177/93
--- NOTE | 2018-03-30 04:12 | NUR ---
PT RESTING WITH EYES CLOSED. RESP EVEN AND REGULAR. SR UP X2, CALL LIGHT WITHIN REACH AND DOOR OPEN.
[2018-03-30 05:28] LABS: BASOPHILS 0 % (0-2); EOSINOPHILS 0.1 % (0-7); HEMATOCRIT 39.6 % (36.0-48.0); HEMOGLOBIN 12.7 g/dL (12-16); IMMATURE GRANULOCYTES 0.6 % (0-5); LYMPHOCYTES 11.5 % (15-50); MCH 30.4 pg (26.0-34.0); MCHC 32.1 g/dL (31.0-37.0); MCV 94.7 fL (80.0-100.0); MEAN PLATELET VOLUME 9.5 fL (7.4-10.4); MONOCYTES 15.2 % (2-11); NEUTROPHILS 72.6 % (40-80); PLATELET COUNT 309 10x3/uL (130-400); RBC 4.18 10x6/uL (4.00-5.40); RDW 16.2 % (11.5-14.5); WBC 9.8 10x3/uL (4.8-10.8)
[2018-03-30 05:39] LABS: ALBUMIN 2.2 g/dL (3.4-5.0); ANION GAP 10.5 mmol/L (8-16); BILIRUBIN - TOTAL 0.48 mg/dL (0.2-1.3); CALCIUM 7.9 mg/dL (8.5-10.1); CARBON DIOXIDE 29.5 mmol/L (21.0-32.0); CREATININE - SERUM 0.8 mg/dL (0.6-1.3); MAGNESIUM - SERUM 2.2 mg/dL (1.8-2.4); PROTEIN - SERUM 5.1 g/dL (6.4-8.2)
--- NOTE | 2018-03-30 06:27 | NUR ---
VSS THROUGHOUT NIGHT. SR PER CM. PT DENIED ANY DISCOMFORT. NPO FOR AM EGD WITH TIVA. NEEDS MET; WILL CONTINUE TO MONITOR.
--- NOTE | 2018-03-30 07:15 | NUR ---
ASSESSMENT COMPLETED. TELEMERTY SHOWS SR 75. ALERT AND ORIENTD. DENIES ANY NEEDS. NPO FOR EGD. UP TO BR WITH ASSIST. O2 AT 2LM. PER NC. WILL MONITOR.CALL LIGHT IN REACH
[2018-03-30 08:25] VITALS: BP 185/100
[2018-03-30 12:12] VITALS: BP 185/83
--- NOTE | 2018-03-30 13:30 | NUR ---
RESTING QUIETLY NAD NOTED
--- NOTE | 2018-03-30 19:28 | NUR ---
RECIEVED SITTING UP IN BED WITH HOB ELEVATED. ALERT AND ORIENTED X4. SON AT BEDSIDE. O2@ 2 LITERS PER N/C. IV TO LEFT AC WITH NS INFUSING AT 100ML/HR. DENIES ANY NEEDS OR PAIN AT THIS TIME. WILL CONT. POC.
[2018-03-30 20:00] VITALS: BP 145/84
--- NOTE | 2018-03-30 22:31 | NUR ---
WITHELD NEBULIZER TX DUE TO AGGRAVATED COUGH. NURSE ADMINISTERED COUGH SYRUP
[2018-03-31] VITALS: BP 131/68
[2018-03-31 04:00] VITALS: BP 145/77
[2018-03-31 05:24] LABS: BASOPHILS 0.1 % (0-2); EOSINOPHILS 2.1 % (0-7); HEMATOCRIT 41.1 % (36.0-48.0); HEMOGLOBIN 13.1 g/dL (12-16); IMMATURE GRANULOCYTES 0.9 % (0-5); LYMPHOCYTES 12.2 % (15-50); MCH 30.3 pg (26.0-34.0); MCHC 31.9 g/dL (31.0-37.0); MCV 94.9 fL (80.0-100.0); MEAN PLATELET VOLUME 9.5 fL (7.4-10.4); MONOCYTES 15.7 % (2-11); PLATELET COUNT 308 10x3/uL (130-400); RBC 4.33 10x6/uL (4.00-5.40); RDW 15.9 % (11.5-14.5); WBC 10.3 10x3/uL (4.8-10.8)
[2018-03-31 07:46] LABS: ANION GAP 10.6 mmol/L (8-16); CARBON DIOXIDE 28.8 mmol/L (21.0-32.0); CREATININE - SERUM 0.8 mg/dL (0.6-1.3); POTASSIUM - SERUM 3.4 mmol/L (3.5-5.1)
[2018-03-31 07:48] VITALS: BP 135/76
--- NOTE | 2018-03-31 09:17 | NUR ---
RESTING QUIETLY NAD NOTED
[2018-03-31 10:50] VITALS: BP 138/76
--- NOTE | 2018-03-31 14:00 | NUR ---
ALERT AND ORIENTED X4. UP IN BED RECIEVING BED BATH AND LINEN CHANGE. DAUGHTER AT BEDSIDE. POTASSIUM REPLACEMENT PER PROTOCOL. DENIES ANY NEEDS. CONTINUE PLAN OF CARE AND SAFETY PRECAUTIONS.
[2018-03-31 17:41] VITALS: BP 109/76
--- NOTE | 2018-03-31 19:31 | NUR ---
RECIEVED UP IN BED WITH EYES OPEN AND TV ON. SON AT BEDSIDE. O2@ 2 LITERS PER N/C. IV TO LEFT AC AT 100CC/HR. PACEMAKER TO LEFT CHEST. TELEMETRY IN PLACE. DENIES ANY NEEDS A THIS TIME. WILL CONT. POC.
[2018-03-31 20:38] VITALS: BP 131/65
[2018-04-01] VITALS: BP 141/75
[2018-04-01 04:00] VITALS: BP 151/98
[2018-04-01 05:19] LABS: BASOPHILS 0.1 % (0-2); EOSINOPHILS 0.8 % (0-7); HEMOGLOBIN 12.4 g/dL (12-16); IMMATURE GRANULOCYTES 1.2 % (0-5); LYMPHOCYTES 9.7 % (15-50); MCH 30.2 pg (26.0-34.0); MCHC 32.6 g/dL (31.0-37.0); MEAN PLATELET VOLUME 9.5 fL (7.4-10.4); MONOCYTES 11.5 % (2-11); NEUTROPHILS 76.7 % (40-80); PLATELET COUNT 327 10x3/uL (130-400); RDW 15.7 % (11.5-14.5); WBC 11.4 10x3/uL (4.8-10.8)
[2018-04-01 05:26] LABS: MCV 92.7 fL (80.0-100.0)
[2018-04-01 05:55] LABS: ANION GAP 11.6 mmol/L (8-16); CALCIUM 7.9 mg/dL (8.5-10.1); CREATININE - SERUM 0.9 mg/dL (0.6-1.3); MAGNESIUM - SERUM 1.8 mg/dL (1.8-2.4); POTASSIUM - SERUM 3.6 mmol/L (3.5-5.1)
[2018-04-01 07:42] VITALS: BP 169/76
[2018-04-01 11:18] VITALS: BP 177/83
--- NOTE | 2018-04-01 11:27 | NUR ---
IV INSERTED TO RIGHT FOREARM 22G. PT TOLERATED WITHOUT COMPLAINT. IV DC FROM LEFT AC. PT TOLERATED WITHOUT COMPLAINT.
[2018-04-01 15:36] VITALS: BP 158/80
--- NOTE | 2018-04-01 19:30 | NUR ---
RESUMING PATIENT CARE. PATIENT IS ALERT AND ORIENTED. VISITING WITH SON AT BEDSIDE. RESPIRATIONS ARE EVEN AND UNLABORED. NC AT 2L. NS AT 100 ML/HR DENIES NEEDS AT THIS TIME. NO S/S OF DISTRESS. NO C/O PAIN. CALL LIGHT WITHIN REACH. WILL CPOC.
[2018-04-01 21:11] VITALS: BP 158/74
[2018-04-02] VITALS (7 sets, daily range): BP systolic 99–197; BP diastolic 59–100
[2018-04-02 05:16] LABS: BASOPHILS 0.1 % (0-2); EOSINOPHILS 0.3 % (0-7); HEMATOCRIT 39.2 % (36.0-48.0); HEMOGLOBIN 12.7 g/dL (12-16); IMMATURE GRANULOCYTES 1.3 % (0-5); LYMPHOCYTES 8.6 % (15-50); MCH 30.2 pg (26.0-34.0); MCHC 32.4 g/dL (31.0-37.0); MCV 93.3 fL (80.0-100.0); MEAN PLATELET VOLUME 9.6 fL (7.4-10.4); MONOCYTES 11.9 % (2-11); NEUTROPHILS 77.8 % (40-80); PLATELET COUNT 349 10x3/uL (130-400); RDW 15.7 % (11.5-14.5); WBC 13.3 10x3/uL (4.8-10.8)
[2018-04-02 05:43] LABS: ANION GAP 10.7 mmol/L (8-16); CARBON DIOXIDE 28.7 mmol/L (21.0-32.0); CREATININE - SERUM 0.9 mg/dL (0.6-1.3); MAGNESIUM - SERUM 1.8 mg/dL (1.8-2.4); POTASSIUM - SERUM 3.4 mmol/L (3.5-5.1)
--- NOTE | 2018-04-02 10:35 | NUR ---
NOTIFIED URI HOWARD NP, AT THE BEDSIDE OF THE PATIENTS ELEVATED BLOOD PRESSURE AND HER ANXIETY. AWAITING FOR NEW ORDERS AT THIS TIME. BEDSIDE COMMODE PLACED AT THE PATIENTS BEDSIDE AT THIS TIME, INFORMED PATIENT OF THE ORDER TO BE OOB FOR ALL MEALS AND OK TO USE THE BEDSIDE COMMODE
--- NOTE | 2018-04-02 10:53 | NUR ---
REHAB PRESCREENING Rehab referral received and chart reviewed. Ms. Friedman is known to this rehab and did well here in the past. She is a good candidate for ARU yet did refuse therapy yesterday. Rehab will follow for participation with PT today. Thank you for this referral! Josephine William, [employer]
[2018-04-02 11:46] LABS: POTASSIUM - SERUM 4.1 mmol/L (3.5-5.1)
--- NOTE | 2018-04-02 12:02 | MORECARE ---
CASE MANAGEMENT DISCHARGE SUMMARY PATIENT: BRITNEY ROB UNIT: [id number] ADM DATE: 03/25/18 AGE: 88 : 29 SEX: F ROOM/BED: D.3214 AUTHOR: PORTIA FULLER PHYSICIAN: REFERRING PHYSICIAN: TUNDE VALENTIN DO DATE OF SERVICE: 04/02/18 Discharge Plan Patient Name: BRITNEY ROB Facility: [facility]:[place] : 1930 Planned Disposition: Home Anticipated Discharge Date: 03/28/18 Discharge Date: Expected LOS: 3 Initial Reviewer: [id number] Initial Review Date: 03/25/2018 Generated: 04/02/18 1:02 pm DCP- Discharge Planning Updated by [id number]: Rosa Clemons on 03/25/18 2:[address] Patient Name: BRITNEY ROB Admission Status: Elective Accout number: [id number] Admission Date: 03-25-2018 : 1930 Admission Diagnosis: Attending: TUNDE VALENTIN Current LOS: 1 Anticipated DC Date: 03-28-2018 Planned Disposition: Home Primary Insurance: MEDICARE A & B Discharge Planning Comments: CM met with patient and her daughterVaishnavi to complete initial dc planning assessment. CM educated patient and her daughter on the CM role and verbal consent given by patient to complete assessment. Patient has been placed on BIPAP in the ER so her daughter whom is also her POA completed assessment with patient's permission. Patient lives at home alone but there is a family member that stays with her every night. She is alone some during the day but never at night. At discharge patient plans to return home and feels this is a safe discharge. CM discussed availability of home health, rehab services, and medical equipment. Patient and daughter both denied known discharge needs at this time. They both felt like home health was not needed. CM will continue to follow and will assist as needed with dc plans/needs. Scalp Treatment Specialist: Rosa Clemons RN, [facility] DCPIA - Discharge Planning Initial Assessment Updated by [id number]: Rosa Clemons on 03/25/18 3:19 pm * Is the patient Alert and Oriented? Yes * How many steps to enter\exit or inside your home? 6-7 * PCP Dr. Ghosh's * [place] [facility] [place] * Preadmission Environment Home with Family * ADLs Independent * Equipment Nebulizer Oxygen Walker * Other Equipment [place] [facility] Patient is 02 provider. * List name and contact numbers for known caregivers / representatives who currently or will assist patient after discharge: Vaishnavi JENSEN, Daughter - [phone] * Verbal permission to speak to the caregivers and representatives has been obtained from the patient. Yes * Community resources currently utilized None * Additional services required to return to the preadmission environment? No * Can the patient safely return to the preadmission environment? Yes * Has this patient been hospitalized within the prior 30 days at any hospital? No Coverage Notice Reviewer: [id number] Briana Flannery Notice Issued Date-Time: 04/02/2018 11:40 Notice Type: Patient Choice Letter Notice Delivered To: Patient Relationship to Patient: Manager Ems Name: Delivery Method: HAND - Hand Delivered Korin Days: Prior Verbal Notification: Recipient Understood Notice: Yes Recipient Signature: Yes Med Rec Note Co-signed by Attending: Coverage Notice Comment: Last DP export: 03/25/18 2:26 pm Patient Name: BRITNEY ROB Page [id number] at 1202 All edits/amendments must be made on the electronic document DICTATION DATE: 04/02/181201 FOLDING RULES PRINTING MACHINE OPERATOR: LAUREN 04/02/181201 RPT#: [id number] DC DATE: STATUS: ADM IN [facility] [address] [place] [address] END OF REPORT
--- NOTE | 2018-04-02 12:12 | MORECARE ---
CASE MANAGEMENT DISCHARGE SUMMARY PATIENT: BRITNEY ROB UNIT: [id number] ADM DATE: 03/25/18 AGE: 88 : 29 SEX: F ROOM/BED: D.7731 AUTHOR: PORTIA FULLER PHYSICIAN: REFERRING PHYSICIAN: TUNDE VALENTIN DO DATE OF SERVICE: 04/02/18 Discharge Plan Patient Name: BRITNEY ROB Facility: [facility]:[place] : 1930 Planned Disposition: Home Anticipated Discharge Date: 03/28/18 Discharge Date: Expected LOS: 3 Initial Reviewer: [id number] Initial Review Date: 03/25/2018 Generated: 04/02/18 1:12 pm DCP- Discharge Planning Updated by [id number]: Rosa Clemons on 03/25/18 2:[address] Patient Name: BRITNEY ROB Admission Status: Elective Accout number: [id number] Admission Date: 03-25-2018 : 1930 Admission Diagnosis: Attending: TUNDE VALENTIN Current LOS: 1 Anticipated DC Date: 03-28-2018 Planned Disposition: Home Primary Insurance: MEDICARE A & B Discharge Planning Comments: CM met with patient and her daughterVaishnavi to complete initial dc planning assessment. CM educated patient and her daughter on the CM role and verbal consent given by patient to complete assessment. Patient has been placed on BIPAP in the ER so her daughter whom is also her POA completed assessment with patient's permission. Patient lives at home alone but there is a family member that stays with her every night. She is alone some during the day but never at night. At discharge patient plans to return home and feels this is a safe discharge. CM discussed availability of home health, rehab services, and medical equipment. Patient and daughter both denied known discharge needs at this time. They both felt like home health was not needed. CM will continue to follow and will assist as needed with dc plans/needs. Machine Printer Hose: Rosa Clemons RN, [facility] DCPIA - Discharge Planning Initial Assessment Updated by [email or web address]: Rosa Clemons on 03/25/18 3:19 pm * Is the patient Alert and Oriented? Yes * How many steps to enter\exit or inside your home? 6-7 * PCP Dr. Ghosh's * Pharmacy [facility] [place] * Preadmission Environment Home with Family * ADLs Independent * Equipment Nebulizer Oxygen Walker * Other Equipment [place] [facility] Patient is 02 provider. * List name and contact numbers for known caregivers / representatives who currently or will assist patient after discharge: Vaishnavi JENSEN, Daughter - [phone] * Verbal permission to speak to the caregivers and representatives has been obtained from the patient. Yes * Community resources currently utilized None * Additional services required to return to the preadmission environment? No * Can the patient safely return to the preadmission environment? Yes * Has this patient been hospitalized within the prior 30 days at any hospital? No External Providers External Provider: [facility] Next Contact Date: 04/03/2018 Service Request Date: Service Type: Resolution: Reviewer: Comments: Coverage Notice Reviewer: [id number] Flannery Notice Issued Date-Time: 04/02/2018 11:40 Notice Type: Patient Choice Letter Notice Delivered To: Patient Relationship to Patient: Human Resources Benefits Coordinator Name: Delivery Method: HAND - Hand Delivered Korin Days: Prior Verbal Notification: Recipient Understood Notice: Yes Recipient Signature: Yes Med Rec Note Co-signed by Attending: Coverage Notice Comment: Reviewer: [id number] Flannery Notice Issued Date-Time: 04/02/2018 11:40 Notice Type: IM Discharge Notice Notice Delivered To: Patient Relationship to Patient: Human Resources Benefits Coordinator Name: Delivery Method: HAND - Hand Delivered Korin Days: Prior Verbal Notification: Recipient Understood Notice: Yes Recipient Signature: Yes Med Rec Note Co-signed by Attending: Coverage Notice Comment: Last DP export: 04/02/18 11:02 a Patient Name: BRITNEY ROB Page [phone] at 1212 All edits/amendments must be made on the electronic document DICTATION DATE: 04/02/18 121 ASSOCIATE STORE DIRECTOR: LAUREN 04/02/18 1212 RPT#: [id number] DC DATE: STATUS: ADM IN [facility] [address] [place] [address] END OF REPORT
--- NOTE | 2018-04-02 13:54 | MORECARE ---
CASE MANAGEMENT DISCHARGE SUMMARY PATIENT: BRITNEY ROB UNIT: [id number] ADM DATE: 03/25/18 AGE: 88 : 29 SEX: F ROOM/BED: D.9699 AUTHOR: PORTIA FULLER PHYSICIAN: REFERRING PHYSICIAN: TUNDE VALENTIN DO DATE OF SERVICE: 04/02/18 Discharge Plan Patient Name: BRITNEY ROB Facility: [facility]:[place] : 1930 Planned Disposition: Home with Home Health Anticipated Discharge Date: 04/03/18 Discharge Date: Expected LOS: 9 Initial Reviewer: [email or web address] Initial Review Date: 03/25/2018 Generated: 04/02/18 2:54 pm Comments DCP- Discharge Planning Updated by [email or web address]: Tyshawn Flannery on 04/02/18 12:[address] Patient Name: BRITNEY ROB Encounter No: [id number] : 1930 Primary Insurance: MEDICARE A & B Anticipated DC Date: 04-03-2018 Planned Disposition: Home with Home Health External Planned Provider: [facility] DCP follow-up note: CM RECEIVED ORDER FOR INPATIENT REHAB PRESCREENING, SPOKE TO ERIBERTO OF INPATIENT REHAB AT [place] WHO INFORMED CM THAT PT IS GOOD CANDIDATE IF PT IS WILLING TO PARTICIPATE WITH THERAPY AND IS WILLING FOR ADMIT. CM SPOKE TO PT IN ROOM REGARDING ORDER AND DISCHARGE PLANNING. CM DISCUSSED AVAILABILITY OF REHAB PROVIDERS, LOCATIONS AND SERVICES. PT DOES NOT WANT PLACEMENT IN INPATIENT OR SKILLED REHAB. PT WANTS TO GO HOME AND WANTS HOME HEALTH FOR THERAPY AND NURSING SERVICES. PT IS AWARE OF INPATIENT REHAB SERVICES BUT DOES NOT WISH TO REMAIN OUTSIDE HER HOME ANY LONGER. CM PROVIDED CHOICE LISTING FOR HOME HEALTH AGENCIES, PT WANTS [facility] SHE HAS USED THEM IN THE PAST WITH GOOD RESULT. CHOICE LETTER SIGNED. IMPORTANT MESSAGE FROM MEDICARE PROVIDED AND EXPLAINED. PT DENIES FURTHER NEEDS REPORTS THAT DEPENDING ON TIME OF DISCHARGE, SHE WILL CALL DIFFERENT PEOPLE TO BACK CLOSER FOR DISCHARGE HOME. CM RECEIVED HOME HEALTH ORDER, CALLED [facility], , SPOKE TO DEREK AND PROVIDED REFERRAL INFORMATION. DEREK TO PROCESS AND SCHEDULE FOR HOME HEALTH ADMISSION. CM FAXED REFERRAL FOR [facility] TO [phone]. FOR DISCHARGE, NOTIFY [facility], , FAX DISCHARGE INFORMATION TO [facility], . Tyshawn Flannery, CASE MANAGEMENT DCP- Discharge Planning Updated by [id number]: Rosa Clemons on 03/25/18 2:[address] Patient Name: BRITNEY ROB Admission Status: Elective Accout number: [id number] Admission Date: 03-25-2018 : 1930 Admission Diagnosis: Attending: TUNDE VALENTIN Current LOS: 1 Anticipated DC Date: 03-28-2018 Planned Disposition: Home Primary Insurance: MEDICARE A & B Discharge Planning Comments: CM met with patient and her daughter, Vaishnavi to complete initial dc planning assessment. CM educated patient and her daughter on the CM role and verbal consent given by patient to complete assessment. Patient has been placed on BIPAP in the ER so her daughter whom is also her POA completed assessment with patient's permission. Patient lives at home alone but there is a family member that stays with her every night. She is alone some during the day but never at night. At discharge patient plans to return home and feels this is a safe discharge. CM discussed availability of home health, rehab services, and medical equipment. Patient and daughter both denied known discharge needs at this time. They both felt like home health was not needed. CM will continue to follow and will assist as needed with dc plans/needs. Jacquard Plate Maker: Rosa Clemons RN, [facility] DCPIA - Discharge Planning Initial Assessment Updated by [email or web address]: Rosa Clemons on 03/25/18 3:19 pm * Is the patient Alert and Oriented? Yes * How many steps to enter\exit or inside your home? 6-7 * PCP Dr. Ghosh's * Pharmacy [facility] near [facility] * Preadmission Environment Home with Family * ADLs Independent * Equipment Nebulizer Oxygen Walker * Other Equipment [place] Patient is 02 provider. * List name and contact numbers for known caregivers / representatives who currently or will assist patient after discharge: Vaishnavi JENSEN, Daughter - [phone] * Verbal permission to speak to the caregivers and representatives has been obtained from the patient. Yes * Community resources currently utilized None * Additional services required to return to the preadmission environment? No * Can the patient safely return to the preadmission environment? Yes * Has this patient been hospitalized within the prior 30 days at any hospital? No Coverage Notice Reviewer: [id number] Flannery Notice Issued Date-Time: 04/02/2018 11:40 Notice Type: Patient Choice Letter Notice Delivered To: Patient Relationship to Patient: Supervisor Roving Name: Delivery Method: HAND - Hand Delivered Korin Days: Prior Verbal Notification: Recipient Understood Notice: Yes Recipient Signature: Yes Med Rec Note Co-signed by Attending: Coverage Notice Comment: Reviewer: [id number] Flannery Notice Issued Date-Time: 04/02/2018 11:40 Notice Type: IM Discharge Notice Notice Delivered To: Patient Relationship to Patient: Supervisor Roving Name: Delivery Method: HAND - Hand Delivered Korin Days: Prior Verbal Notification: Recipient Understood Notice: Yes Recipient Signature: Yes Med Rec Note Co-signed by Attending: Coverage Notice Comment: Last DP export: 04/02/18 11:12 a Patient Name: BRITNEY ROB Page [phone] at 1354 All edits/amendments must be made on the electronic document DICTATION DATE: 04/02/18 1353 AIRCRAFT INSTRUMENT REPAIRER: LAUREN 04/02/18 1353 RPT#: [id number] DC DATE: STATUS: ADM IN [facility] [address] [place] [address] END OF REPORT
--- NOTE | 2018-04-02 14:51 | NUR ---
Nutrition follow-up: Diet: regular mechanical soft PO intake ~60% average of last 3 meals Labs reviewed WT: 122# Last BM charted was 03/27 Will continue to provide food choices within diet restrictions. Pt refuses nutritional supplements. RDN following.
--- NOTE | 2018-04-02 16:47 | NUR ---
THE PATIENTS REQUEST TO GO TO IN PATIENT REHAB DOWN STAIRS WITH A PRIVATE WAS RELAYED TO THE CERTIFIED NUTRITIONIST.
--- NOTE | 2018-04-02 19:30 | NUR ---
RESUMING PATIENT CARE. PATIENT IS ALERT AND ORIENTED. RESPIRATIONS ARE EVEN AND UNLABORED. DENOES NEEDS AT THIS TIME. FAMILY AT BEDSIDE. NO S/S OF DISTRESS. NO C/O PAIN. CALL LIGHT WITHIN REACH. WILL CPOC.
[2018-04-03 04:00] VITALS: BP 161/100
[2018-04-03 05:42] LABS: BASOPHILS 0.1 % (0-2); EOSINOPHILS 1.1 % (0-7); HEMATOCRIT 39.6 % (36.0-48.0); HEMOGLOBIN 12.5 g/dL (12-16); IMMATURE GRANULOCYTES 2.5 % (0-5); LYMPHOCYTES 8.5 % (15-50); MCH 30.3 pg (26.0-34.0); MCHC 31.6 g/dL (31.0-37.0); MEAN PLATELET VOLUME 9.5 fL (7.4-10.4); MONOCYTES 16.1 % (2-11); NEUTROPHILS 71.7 % (40-80); PLATELET COUNT 363 10x3/uL (130-400); RBC 4.12 10x6/uL (4.00-5.40); WBC 12.5 10x3/uL (4.8-10.8)
[2018-04-03 05:55] LABS: MCV 96.1 fL (80.0-100.0)
[2018-04-03 06:16] LABS: ANION GAP 9.9 mmol/L (8-16); CALCIUM 8.1 mg/dL (8.5-10.1); CARBON DIOXIDE 30.8 mmol/L (21.0-32.0); CREATININE - SERUM 0.9 mg/dL (0.6-1.3); MAGNESIUM - SERUM 2.1 mg/dL (1.8-2.4); POTASSIUM - SERUM 3.7 mmol/L (3.5-5.1)
[2018-04-03 07:48] VITALS: BP 170/81
--- NOTE | 2018-04-03 08:02 | NUR ---
INITIAL ROUNDING, PATIENT RESTING SUPINE IN BED, DENIES PAIN AND WAITING TO GO DOWNSTAIRS TO REHAB
--- NOTE | 2018-04-03 08:32 | MORECARE ---
CASE MANAGEMENT DISCHARGE SUMMARY PATIENT: BRITNEY ROB UNIT: [id number] ADM DATE: 03/25/18 AGE: 88 : 29 SEX: F ROOM/BED: D.3600 AUTHOR: PORTIA FULLER PHYSICIAN: REFERRING PHYSICIAN: TUNDE VALENTIN DO DATE OF SERVICE: 04/03/18 Discharge Plan Patient Name: BRITNEY ROB Facility: [facility]:[place] : 1930 Planned Disposition: Inpatient Rehab Anticipated Discharge Date: 04/03/18 Discharge Date: Expected LOS: 9 Initial Reviewer: [email or web address] Initial Review Date: 03/25/2018 Generated: 04/03/18 9:32 am Comments DCP- Discharge Planning Updated by [email or web address]: Tyshawn Flannery on 04/02/18 12:[address] Patient Name: BRITNEY ROB Encounter No: [id number] : 1930 Primary Insurance: MEDICARE A & B Anticipated DC Date: 04-03-2018 Planned Disposition: Home with Home Health External Planned Provider: [facility] DCP follow-up note: CM RECEIVED ORDER FOR INPATIENT REHAB PRESCREENING, SPOKE TO ERIBERTO OF INPATIENT REHAB AT [place] WHO INFORMED CM THAT PT IS GOOD CANDIDATE IF PT IS WILLING TO PARTICIPATE WITH THERAPY AND IS WILLING FOR ADMIT. CM SPOKE TO PT IN ROOM REGARDING ORDER AND DISCHARGE PLANNING. CM DISCUSSED AVAILABILITY OF REHAB PROVIDERS, LOCATIONS AND SERVICES. PT DOES NOT WANT PLACEMENT IN INPATIENT OR SKILLED REHAB. PT WANTS TO GO HOME AND WANTS HOME HEALTH FOR THERAPY AND NURSING SERVICES. PT IS AWARE OF INPATIENT REHAB SERVICES BUT DOES NOT WISH TO REMAIN OUTSIDE HER HOME ANY LONGER. CM PROVIDED CHOICE LISTING FOR HOME HEALTH AGENCIES, PT WANTS [facility] SHE HAS USED THEM IN THE PAST WITH GOOD RESULT. CHOICE LETTER SIGNED. IMPORTANT MESSAGE FROM MEDICARE PROVIDED AND EXPLAINED. PT DENIES FURTHER NEEDS REPORTS THAT DEPENDING ON TIME OF DISCHARGE, SHE WILL CALL DIFFERENT PEOPLE TO RETAIL TEAM LEADER FOR DISCHARGE HOME. CM RECEIVED HOME HEALTH ORDER, CALLED [facility], , SPOKE TO DEREK AND PROVIDED REFERRAL INFORMATION. DEREK TO PROCESS AND SCHEDULE FOR HOME HEALTH ADMISSION. CM FAXED REFERRAL FOR [facility] TO [phone]. FOR DISCHARGE, NOTIFY [facility], , FAX DISCHARGE INFORMATION TO [facility], . Tyshawn Flannery, CASE MANAGEMENT DCP- Discharge Planning Updated by [id number]: Rosa Clemons on 03/25/18 2:[address] Patient Name: BRITNEY ROB Admission Status: Elective Accout number: [id number] Admission Date: 03-25-2018 : 1930 Admission Diagnosis: Attending: TUNDE VALENTIN Current LOS: 1 Anticipated DC Date: 03-28-2018 Planned Disposition: Home Primary Insurance: MEDICARE A & B Discharge Planning Comments: CM met with patient and her daughter, Vaishnavi to complete initial dc planning assessment. CM educated patient and her daughter on the CM role and verbal consent given by patient to complete assessment. Patient has been placed on BIPAP in the ER so her daughter whom is also her POA completed assessment with patient's permission. Patient lives at home alone but there is a family member that stays with her every night. She is alone some during the day but never at night. At discharge patient plans to return home and feels this is a safe discharge. CM discussed availability of home health, rehab services, and medical equipment. Patient and daughter both denied known discharge needs at this time. They both felt like home health was not needed. CM will continue to follow and will assist as needed with dc plans/needs. Fraud Investigator: Rosa Clemons RN, [facility] DCPIA - Discharge Planning Initial Assessment Updated by [id number]: Rosa Clemons on 03/25/18 3:19 pm * Is the patient Alert and Oriented? Yes * How many steps to enter\exit or inside your home? 6-7 * PCP Dr. Ghosh's * Pharmacy [facility] near the [facility] * Preadmission Environment Home with Family * ADLs Independent * Equipment Nebulizer Oxygen Walker * Other Equipment [place] Patient is 02 provider. * List name and contact numbers for known caregivers / representatives who currently or will assist patient after discharge: Vaishnavi JENSEN, Daughter - [phone] * Verbal permission to speak to the caregivers and representatives has been obtained from the patient. Yes * Community resources currently utilized None * Additional services required to return to the preadmission environment? No * Can the patient safely return to the preadmission environment? Yes * Has this patient been hospitalized within the prior 30 days at any hospital? No Coverage Notice Reviewer: [id number] Flannery Notice Issued Date-Time: 04/02/2018 11:40 Notice Type: Patient Choice Letter Notice Delivered To: Patient Relationship to Patient: Shrub Grower Name: Delivery Method: HAND - Hand Delivered Korin Days: Prior Verbal Notification: Recipient Understood Notice: Yes Recipient Signature: Yes Med Rec Note Co-signed by Attending: Coverage Notice Comment: Reviewer: [id number] Flannery Notice Issued Date-Time: 04/02/2018 11:40 Notice Type: IM Discharge Notice Notice Delivered To: Patient Relationship to Patient: Shrub Grower Name: Delivery Method: HAND - Hand Delivered Korin Days: Prior Verbal Notification: Recipient Understood Notice: Yes Recipient Signature: Yes Med Rec Note Co-signed by Attending: Coverage Notice Comment: Last DP export: 04/02/18 12:54 p Patient Name: BRITNEY ROB Page [phone] at 0832 All edits/amendments must be made on the electronic document DICTATION DATE: 04/03/18 0832 MANAGER MUSIC: LAUREN 04/03/18 0832 RPT#: [id number] DC DATE: STATUS: ADM IN [facility] [address] [place] [address] END OF REPORT
--- NOTE | 2018-04-03 08:39 | MORECARE ---
CASE MANAGEMENT DISCHARGE SUMMARY PATIENT: BRITNEY ROB UNIT: [id number] ADM DATE: 03/25/18 AGE: 88 : 29 SEX: F ROOM/BED: D.4444 AUTHOR: PORTIA FULLER PHYSICIAN: REFERRING PHYSICIAN: TUNDE VALENTIN DO DATE OF SERVICE: 04/03/18 Discharge Plan Patient Name: BRITNEY ROB Facility: [facility]:[place] : 1930 Planned Disposition: Inpatient Rehab Anticipated Discharge Date: 04/03/18 Discharge Date: Expected LOS: 9 Initial Reviewer: [id number] Initial Review Date: 03/25/2018 Generated: 04/03/18 9:39 am Comments DCP- Discharge Planning Updated by [id number]: Tyshawn Flannery on 04/03/18 7:[address] Patient Name: BRITNEY ROB Encounter No: [id number] : 1930 Primary Insurance: MEDICARE A & B Anticipated DC Date: 04-03-2018 Planned Disposition: Inpatient Rehab External Planned Provider: [facility] INPATIENT REHAB DCP follow-up note: CM SPOKE TO BEDSIDE NURSE WHO INFORMED CM THAT PT AND DAUGHTER HAVE DISCUSSED DISCHARGE PLANNING, PT IS NOW IN AGREEMENT WITH DISCHARGE TO INPATIENT REHAB AT [place]. CM SPOKE TO PT IN ROOM, PT IN AGREEMENT WITH REHAB AT [place]. CM CALLED AND SPOKE TO BRIDGETTE OF INPATIENT REHAB WHO INFORMED CM THAT THEY WILL COMPLETE SCREEN AND PLAN TO ACCEPT PT 04-03-18 FOR INPATIENT REHAB. NOTIFY [facility] INPATIENT REHAB WHEN DISCHARGE ORDER IS RECEIVED. [facility] INPATIENT REHAB WILL THEN CONTACT [facility] 2 NURSE WITH ROOM NUMBER WHEN READY TO ACCEPT PT AND NURSE REPORT. Tyshawn Flannery, CASE MANAGEMENT DCP- Discharge Planning Updated by [id number]: Tyshawn Flannery on 04/02/18 12:[address] Patient Name: BRITNEY ROB Encounter No: [id number] : 1930 Primary Insurance: MEDICARE A & B Anticipated DC Date: 04-03-2018 Planned Disposition: Home with Home Health External Planned Provider: [facility] DCP follow-up note: CM RECEIVED ORDER FOR INPATIENT REHAB PRESCREENING, SPOKE TO ERIBERTO OF INPATIENT REHAB AT [place] WHO INFORMED CM THAT PT IS GOOD CANDIDATE IF PT IS WILLING TO PARTICIPATE WITH THERAPY AND IS WILLING FOR ADMIT. CM SPOKE TO PT IN ROOM REGARDING ORDER AND DISCHARGE PLANNING. CM DISCUSSED AVAILABILITY OF REHAB PROVIDERS, LOCATIONS AND SERVICES. PT DOES NOT WANT PLACEMENT IN INPATIENT OR SKILLED REHAB. PT WANTS TO GO HOME AND WANTS HOME HEALTH FOR THERAPY AND NURSING SERVICES. PT IS AWARE OF INPATIENT REHAB SERVICES BUT DOES NOT WISH TO REMAIN OUTSIDE HER HOME ANY LONGER. CM PROVIDED CHOICE LISTING FOR HOME HEALTH AGENCIES, PT WANTS [facility] SHE HAS USED THEM IN THE PAST WITH GOOD RESULT. CHOICE LETTER SIGNED. IMPORTANT MESSAGE FROM MEDICARE PROVIDED AND EXPLAINED. PT DENIES FURTHER NEEDS REPORTS THAT DEPENDING ON TIME OF DISCHARGE, SHE WILL CALL DIFFERENT PEOPLE TO [employer] FOR DISCHARGE HOME. CM RECEIVED HOME HEALTH ORDER, CALLED [facility], , SPOKE TO [facility] AND PROVIDED REFERRAL INFORMATION. DEREK TO PROCESS AND SCHEDULE FOR HOME HEALTH ADMISSION. CM FAXED REFERRAL FOR [facility] TO [phone]. FOR DISCHARGE, NOTIFY [facility], , FAX DISCHARGE INFORMATION TO [facility] AT [place], . Tyshawn Flannery, CASE MANAGEMENT DCP- Discharge Planning Updated by [id number]: Rosa Clemons on 03/25/18 2:[address] Patient Name: BRITNEY ROB Admission Status: Elective Accout number: [id number] Admission Date: 03-25-2018 : 9 Admission Diagnosis: Attending: TUNDE VALENTIN Current LOS: 1 Anticipated DC Date: 03-28-2018 Planned Disposition: Home Primary Insurance: MEDICARE A & B Discharge Planning Comments: CM met with patient and her daughterVaishnavi to complete initial dc planning assessment. CM educated patient and her daughter on the CM role and verbal consent given by patient to complete assessment. Patient has been placed on BIPAP in the ER so her daughter whom is also her POA completed assessment with patient's permission. Patient lives at home alone but there is a family member that stays with her every night. She is alone some during the day but never at night. At discharge patient plans to return home and feels this is a safe discharge. CM discussed availability of home health, rehab services, and medical equipment. Patient and daughter both denied known discharge needs at this time. They both felt like home health was not needed. CM will continue to follow and will assist as needed with dc plans/needs. Trading Specialist: Rosa Clemons RN, [facility] DCPIA - Discharge Planning Initial Assessment Updated by [id number]: Rosa Clemons on 03/25/18 3:19 pm * Is the patient Alert and Oriented? Yes * How many steps to enter\exit or inside your home? 6-7 * PCP Dr. Ghosh's * [place] [facility] [place] * Preadmission Environment Home with Family * ADLs Independent * Equipment Nebulizer Oxygen Walker * Other Equipment [facility] Patient is 02 provider. * List name and contact numbers for known caregivers / representatives who currently or will assist patient after discharge: Vaishnavi JENSEN, Daughter - [phone] * Verbal permission to speak to the caregivers and representatives has been obtained from the patient. Yes * Community resources currently utilized None * Additional services required to return to the preadmission environment? No * Can the patient safely return to the preadmission environment? Yes * Has this patient been hospitalized within the prior 30 days at any hospital? No Coverage Notice Reviewer: [id number] Flannery Notice Issued Date-Time: 04/02/2018 11:40 Notice Type: Patient Choice Letter Notice Delivered To: Patient Relationship to Patient: Receiving Room Clerk Name: Delivery Method: HAND - Hand Delivered Korin Days: Prior Verbal Notification: Recipient Understood Notice: Yes Recipient Signature: Yes Med Rec Note Co-signed by Attending: Coverage Notice Comment: Reviewer: [id number] Flannery Notice Issued Date-Time: 04/02/2018 11:40 Notice Type: IM Discharge Notice Notice Delivered To: Patient Relationship to Patient: Receiving Room Clerk Name: Delivery Method: HAND - Hand Delivered Korin Days: Prior Verbal Notification: Recipient Understood Notice: Yes Recipient Signature: Yes Med Rec Note Co-signed by Attending: Coverage Notice Comment: Last DP export: 04/03/18 7:32 a Patient Name: BRITNEY ROB Page [phone] at 0839 All edits/amendments must be made on the electronic document DICTATION DATE: 04/03/18837 LEARNING AND DEVELOPMENT OFFICER: LAUREN 04/03/18837 RPT#: [id number] DC DATE: STATUS: ADM IN [facility] [address] [place] [address] END OF REPORT
[2018-04-03 11:52] VITALS: BP 148/94
[2018-04-03 15:26] VITALS: BP 148/85
[2018-04-03] MEDS ORDERED: NORVASC10 MG PO (17:01)
[2018-04-03] MEDS ORDERED: COZAAR50 MG PO (17:01)
[2018-04-03] MEDS ORDERED: PROTONIX40 MG PO (17:02)
[2018-04-03] MEDS ORDERED: MELATONIN 3 MG1 TAB PO (17:02)
--- NOTE | 2018-04-03 17:30 | NUR ---
CALLED AND GAVE REPORT TO ABHISHEK IN THE REHAB UNIT
--- NOTE | 2018-04-04 08:55 | MORECARE ---
CASE MANAGEMENT DISCHARGE SUMMARY PATIENT: BRITNEY ROB UNIT: [id number] ADM DATE: 03/25/18 AGE: 88 : 29 SEX: F ROOM/BED: D.1333 AUTHOR: PORTIA FULLER PHYSICIAN: REFERRING PHYSICIAN: TUNDE VALENTIN DO DATE OF SERVICE: 04/04/18 Discharge Plan Patient Name: BRITNEY ROB Facility: [facility]:[place] : 1930 Planned Disposition: Inpatient Rehab Anticipated Discharge Date: 04/03/18 Discharge Date: 04/03/2018 Expected LOS: 9 Initial Reviewer: [email or web address] Initial Review Date: 03/25/2018 Generated: 04/04/18 9:54 am Comments DCP- Discharge Planning Updated by [id number]: Tyshawn Flannery on 04/03/18 7:[address] Patient Name: BRITNEY ROB Encounter No: [id number] : 1930 Primary Insurance: MEDICARE A & B Anticipated DC Date: 04-03-2018 Planned Disposition: Inpatient Rehab External Planned Provider: [facility] INPATIENT REH[facility] DCP follow-up note: CM SPOKE TO BEDSIDE NURSE WHO INFORMED CM THAT PT AND DAUGHTER HAVE DISCUSSED DISCHARGE PLANNING, PT IS NOW IN AGREEMENT WITH DISCHARGE TO INPATIENT REHAB AT [place]. CM SPOKE TO PT IN ROOM, PT IN AGREEMENT WITH REHAB AT [place]. CM CALLED AND SPOKE TO BRIDGETTE OF INPATIENT REHAB WHO INFORMED CM THAT THEY WILL COMPLETE SCREEN AND PLAN TO ACCEPT PT 04-03-18 FOR INPATIENT REHAB. NOTIFY [facility] INPATIENT REHAB WHEN DISCHARGE ORDER IS RECEIVED. [facility] INPATIENT REHAB WILL THEN CONTACT [facility] 2 NURSE WITH ROOM NUMBER WHEN READY TO ACCEPT PT AND NURSE REPORT. Tyshawn Flannery, CASE KUNAL DCP- Discharge Planning Updated by [email or web address]: Tyshawn Flannery on 04/02/18 12:[address] Patient Name: BRITNEY ROB Encounter No: [id number] : 1930 Primary Insurance: MEDICARE A & B Anticipated DC Date: 04-03-2018 Planned Disposition: Home with Home Health External Planned Provider: [facility] DCP follow-up note: CM RECEIVED ORDER FOR INPATIENT REHAB PRESCREENING, SPOKE TO ERIBERTO OF INPATIENT REHAB AT [place] WHO INFORMED CM THAT PT IS GOOD CANDIDATE IF PT IS WILLING TO PARTICIPATE WITH THERAPY AND IS WILLING FOR ADMIT. CM SPOKE TO PT IN ROOM REGARDING ORDER AND DISCHARGE PLANNING. CM DISCUSSED AVAILABILITY OF REHAB PROVIDERS, LOCATIONS AND SERVICES. PT DOES NOT WANT PLACEMENT IN INPATIENT OR SKILLED REHAB. PT WANTS TO GO HOME AND WANTS HOME HEALTH FOR THERAPY AND NURSING SERVICES. PT IS AWARE OF INPATIENT REHAB SERVICES BUT DOES NOT WISH TO REMAIN OUTSIDE HER HOME ANY LONGER. CM PROVIDED CHOICE LISTING FOR HOME HEALTH AGENCIES, PT WANTS [facility] AT HOME SHE HAS USED THEM IN THE PAST WITH GOOD RESULT. CHOICE LETTER SIGNED. IMPORTANT MESSAGE FROM MEDICARE PROVIDED AND EXPLAINED. PT DENIES FURTHER NEEDS REPORTS THAT DEPENDING ON TIME OF DISCHARGE, SHE WILL CALL DIFFERENT PEOPLE TO [employer] FOR DISCHARGE HOME. CM RECEIVED HOME HEALTH ORDER, CALLED [facility], , SPOKE TO [facility] AND PROVIDED REFERRAL INFORMATION. DEREK TO PROCESS AND SCHEDULE FOR HOME HEALTH ADMISSION. CM FAXED REFERRAL FOR [facility] TO [phone]. FOR DISCHARGE, NOTIFY [facility], , FAX DISCHARGE INFORMATION TO [facility] [place], . Tyshawn Flannery, CASE MANAGEMENT DCP- Discharge Planning Updated by [id number]: Rosa Clemons on 03/25/18 2:[address] Patient Name: BRITNEY ROB Admission Status: Elective Accout number: [id number] Admission Date: 03-25-2018 : 1930 Admission Diagnosis: Attending: TUNDE VALENTIN Current LOS: 1 Anticipated DC Date: 03-28-2018 Planned Disposition: Home Primary Insurance: MEDICARE A & B Discharge Planning Comments: CM met with patient and her daughterVaishnavi to complete initial dc planning assessment. CM educated patient and her daughter on the CM role and verbal consent given by patient to complete assessment. Patient has been placed on BIPAP in the ER so her daughter whom is also her POA completed assessment with patient's permission. Patient lives at home alone but there is a family member that stays with her every night. She is alone some during the day but never at night. At discharge patient plans to return home and feels this is a safe discharge. CM discussed availability of home health, rehab services, and medical equipment. Patient and daughter both denied known discharge needs at this time. They both felt like home health was not needed. CM will continue to follow and will assist as needed with dc plans/needs. Interventional Technologist: Rosa Clemons RN, [facility] DCPIA - Discharge Planning Initial Assessment Updated by [id number]: Rosa Clemons on 03/25/18 3:19 pm * Is the patient Alert and Oriented? Yes * How many steps to enter\exit or inside your home? 6-7 * PCP Dr. Ghosh's * Pharmacy [facility] [place] * Preadmission Environment Home with Family * ADLs Independent * Equipment Nebulizer Oxygen Walker * Other Equipment [facility] Patient is 02 provider. * List name and contact numbers for known caregivers / representatives who currently or will assist patient after discharge: Vaishnavi JENSEN, Daughter - [phone] * Verbal permission to speak to the caregivers and representatives has been obtained from the patient. Yes * Community resources currently utilized None * Additional services required to return to the preadmission environment? No * Can the patient safely return to the preadmission environment? Yes * Has this patient been hospitalized within the prior 30 days at any hospital? No Coverage Notice Reviewer: [id number] Briana Flannery Notice Issued Date-Time: 04/02/2018 11:40 Notice Type: Patient Choice Letter Notice Delivered To: Patient Relationship to Patient: Bus And Rail Operator Name: Delivery Method: HAND - Hand Delivered Korin Days: Prior Verbal Notification: Recipient Understood Notice: Yes Recipient Signature: Yes Med Rec Note Co-signed by Attending: Coverage Notice Comment: Reviewer: [email or web address] Briana Flannery Notice Issued Date-Time: 04/02/2018 11:40 Notice Type: IM Discharge Notice Notice Delivered To: Patient Relationship to Patient: Bus And Rail Operator Name: Delivery Method: HAND - Hand Delivered Korin Days: Prior Verbal Notification: Recipient Understood Notice: Yes Recipient Signature: Yes Med Rec Note Co-signed by Attending: Coverage Notice Comment: Last DP export: 04/03/18 7:39 a Patient Name: BRITNEY ROB Page [phone] at 0855 All edits/amendments must be made on the electronic document DICTATION DATE: 04/04/1854 BANDOLEER STRAIGHTENER STAMPER: LAUREN 04/04/18853 RPT#: [id number] DC DATE:04/03/18 STATUS: DIS IN [facility] [address] [place] [address] END OF REPORT
== END 2018-04-03 18:30 | DRG 193 ==
LOC: D.ER 10:32 → D.M2 13:11 → D.EDHOLD 13:11 → D.M2 13:45
PROVIDERS: Family Medicine; ADMIT Family Medicine
PROC: 5A09357 Assistance with Respiratory Ventilation, Less than 24 Consecutive Hours, Continuous Positive Airway Pressure (ICD-10-PCS; principal; 2018-03-26)
PROC: 0DB58ZX Excision of Esophagus, Via Natural or Artificial Opening Endoscopic, Diagnostic (ICD-10-PCS; 2018-03-30)
PROC: 0DB68ZX Excision of Stomach, Via Natural or Artificial Opening Endoscopic, Diagnostic (ICD-10-PCS; 2018-03-30)
DX: J18.1 Lobar pneumonia, unspecified organism (principal); J96.22 Acute and chronic respiratory failure with hypercapnia; J96.21 Acute and chronic respiratory failure with hypoxia; K22.10 Ulcer of esophagus without bleeding; N17.9 Acute kidney failure, unspecified; B37.0 Candidal stomatitis; J20.9 Acute bronchitis, unspecified; I10 Essential (primary) hypertension; I48.91 Unspecified atrial fibrillation; E03.9 Hypothyroidism, unspecified; J43.9 Emphysema, unspecified; R13.10 Dysphagia, unspecified; K44.9 Diaphragmatic hernia without obstruction or gangrene; K29.70 Gastritis, unspecified, without bleeding; Z95.0 Presence of cardiac pacemaker; Z72.0 Tobacco use

== ENCOUNTER 2018-04-03 16:17 | Inpatient (IN) | payer MEDICARE, OTHER ==
[~2018-04-03] VITALS: Ht 165.1 cm; Wt 57.6 kg
[~2018-04-03 16:17] MED LIST changes: +COZAAR25 MG PO; +COZAAR50 MG PO; +VENTOLIN
[2018-04-03] MEDS ORDERED: NORVASC10 MG PO (17:01)
[2018-04-03] MEDS ORDERED: COZAAR50 MG PO (17:01)
[2018-04-03] MEDS ORDERED: PROTONIX40 MG PO (17:02)
[2018-04-03] MEDS ORDERED: MELATONIN 3 MG1 TAB PO (17:02)
[2018-04-03 19:14] VITALS: BMI 21.1
--- NOTE | 2018-04-03 19:34 | NUR ---
AWAKE AND ALERT. ADMITTED TO ROOM 50603B FOR [facility] REHAB. O2/2L ON PER NASAL CANNULA. HX OF COPD. CONTINENT OF BOWEL AND BLADDER. NO C/O PAIN. ORIETNED TO ROOM AND CALL LIGHT. FAMILY AT BEDSIDE.
[2018-04-04 06:35] LABS: ANION GAP 10.5 mmol/L (8-16); CALCIUM 8.7 mg/dL (8.5-10.1); CARBON DIOXIDE 32.9 mmol/L (21.0-32.0); CREATININE - SERUM 0.8 mg/dL (0.6-1.3); POTASSIUM - SERUM 3.4 mmol/L (3.5-5.1)
[2018-04-04 06:36] LABS: BASOPHILS 0.2 % (0-2); EOSINOPHILS 1.2 % (0-7); HEMATOCRIT 42.1 % (36.0-48.0); HEMOGLOBIN 13.7 g/dL (12-16); IMMATURE GRANULOCYTES 1.8 % (0-5); LYMPHOCYTES 8.1 % (15-50); MCH 30.7 pg (26.0-34.0); MCHC 32.5 g/dL (31.0-37.0); MCV 94.4 fL (80.0-100.0); MEAN PLATELET VOLUME 9.6 fL (7.4-10.4); MONOCYTES 16.9 % (2-11); NEUTROPHILS 71.8 % (40-80); PLATELET COUNT 330 10x3/uL (130-400); RBC 4.46 10x6/uL (4.00-5.40); RDW 15.7 % (11.5-14.5)
[2018-04-04 08:00] VITALS: BP 154/83
[2018-04-04 11:01] VITALS: Ht 165.1 cm; Wt 57.6 kg
--- NOTE | 2018-04-04 17:32 | NUR ---
CALLED DR EDUARDO REGARDING PTS MEDS HE STATED HE WOULD LIKE DR ALAN TO ADDRESS
--- NOTE | 2018-04-04 17:50 | NUR ---
PT RESTING IN BED WITH EYES OPEN CALL LIGHT IN REACH NO PROBLEMS WILL MONITER
--- NOTE | 2018-04-04 17:52 | NUR ---
PT RESTING IN BED WITH EYES OPEN CALL LIGHT IN REACH NO PROBLEMS WILL MONITER
--- NOTE | 2018-04-04 20:00 | NUR ---
PATIENT RECEIVED SITTING UP IN BED. PATIENT VITAL SIGNS & ASSESSMENT DONE. PATIENT FAMILY AT BEDSIDE. PATIENT C/O NEEDING PRN UPDRAFT. RESPIRATORY CALLED. PATIENT CALL LIGHT WITHIN REACH. WILL CONTINUE TO MONITOR.
[2018-04-04 20:01] VITALS: BP 158/83
--- NOTE | 2018-04-05 | NUR ---
PATIENT HAS HAD NO REACTION TO IV ANTIBIOTICS. CALL LIGHT WITHIN REACH. WILL CONTINUE TO MONITOR.
--- NOTE | 2018-04-05 02:46 | NUR ---
PATIENT TOILETED USING PORTABLE OXYGEN. PATIENT PLACED BACK IN BED. OXYGEN TRANSFERRED BACK INTO BED. BED LOW. CALL LIGHT WITHIN REACH. WILL CONTINUE TO MONITOR.
[2018-04-05 05:44] LABS: BASOPHILS 0.1 % (0-2); EOSINOPHILS 1.2 % (0-7); HEMATOCRIT 38.6 % (36.0-48.0); HEMOGLOBIN 12.3 g/dL (12-16); IMMATURE GRANULOCYTES 1.3 % (0-5); LYMPHOCYTES 8.2 % (15-50); MCH 30.5 pg (26.0-34.0); MCHC 31.9 g/dL (31.0-37.0); MCV 95.8 fL (80.0-100.0); MEAN PLATELET VOLUME 9.5 fL (7.4-10.4); MONOCYTES 16.2 % (2-11); PLATELET COUNT 283 10x3/uL (130-400); RBC 4.03 10x6/uL (4.00-5.40); WBC 14.5 10x3/uL (4.8-10.8)
[2018-04-05 05:48] LABS: ANION GAP 10.9 mmol/L (8-16); CALCIUM 8.1 mg/dL (8.5-10.1); CARBON DIOXIDE 29.7 mmol/L (21.0-32.0); CREATININE - SERUM 0.9 mg/dL (0.6-1.3); POTASSIUM - SERUM 3.6 mmol/L (3.5-5.1)
--- NOTE | 2018-04-05 08:00 | NUR ---
PATIENT IS ALERT/ORIENT. NPO FOR PROCEEDURE. CALL LIGHT WITHIN REACH. VOICES NO NEEDS AT THIS TIME. WILL CONTINUE WITH PLAN OF CARE
--- NOTE | 2018-04-05 09:24 | NUR ---
DR ALAN INTO SEE PATIENT. DR EDUARDO REQUESTED DR ALAN TO LOOK AT PATIENTS MED REC DUE TO THAT ON DISCHARGE SOME MEDICATIONS WERE NOT CARRIED OVER. NO NEW ORDERS RECEIVED
--- NOTE | 2018-04-05 10:40 | NUR ---
PATIENT TAKEN BY RESPITORY THERAPIST FOR BRONCHOSCOPY. PRE MEDICATIONS GIVEN
--- NOTE | 2018-04-05 13:45 | NUR ---
PATIENT DISCHARGED FROM REHAB AND ADMITTED TO ICU
--- NOTE | 2018-04-17 10:28 | RHP ---
PATIENT: BRITNEY ROB MEDICAL RECORD: [id number] ACCOUNT: [id number] LOCATION:[facility] : [birth year] ADMISSION DATE: 04/03/18 REHABILITATION HISTORY AND PHYSICAL EXAMINATION POST ADMISSION PHYSICIAN EXAMINATION DATE OF ADMISSION: 04/03/2018. ADMITTING DIAGNOSIS: Acute exacerbation of chronic obstructive pulmonary disease. HISTORY OF PRESENT ILLNESS: The patient is an 88-year-old female patient who is admitted to the rehab with a working diagnosis of COPD. She presented to the Emergency Room with worsening dyspnea on exertion, cough for the previous couple days prior to admission. She has got a history of COPD and continued to smoke. She was admitted with exacerbation of this. She is currently receiving IV acyclovir. She has got odynophagia. She has got oxygen at 3 liters via nasal cannula. She is on telemetry for controlled AFib. She has had some uncontrolled high blood pressure at times. She is being tapered off for IV steroids, have an increased weakness and impaired mobility, debility, deconditioning, dyspnea on exertion. She is mod assist with her ADLs and mod assist with her mobility. She is definitely a fall risk. These are all barriers to her discharge. She lives at home alone, was wearing 1-2 liters of nasal cannula oxygen at this time. She was independent with her ADLs and her mobility prior to this hospitalization. She has been in acute rehab in the past and she had excellent outcome. She would like to come back now and be followed. She is wearing her oxygen 24 hours a day. The patient and her daughter plan for her to be able to return home at her current level, but improved, hopefully back to her prior level of functioning. COMORBIDITIES: Include COPD, [id number] respiratory failure, chronic smoker, atrial fib, debility, hypertension, hypothyroidism, odynophagia, acute kidney injury, electrolyte abnormalities, anxiety, esophagitis, oral candidiasis, small hiatal hernia and gastritis. PAST MEDICAL HISTORY: Significant for COPD, hypertension, hyperlipidemia, hypothyroidism, gastroesophageal reflux, atrial fib, tobacco use, gastric ulcers, anxiety, and constipation. PAST SURGICAL HISTORY: Includes hysterectomy, pacemaker placement, eye surgery, appendectomy, and pins for broken wrist. ALLERGIES: PENICILLIN, CODEINE, AND ASPIRIN. CURRENT MEDICATIONS: Include Mucinex 1 tab b.i.d., Protonix 40 mg daily, Synthroid 88 mcg daily, vitamin D 1000 units daily, amlodipine 10 mg daily, Tessalon Perles 100 mg t.i.d., Ventolin updrafts as needed, Betapace 80 mg b.i.d., melatonin 3 mg q.h.s. p.r.n., Cozaar 50 mg b.i.d., Ativan 0.25 mg q.4 hours p.r.n., Pradaxa 150 mg b.i.d., and polyethylene glycol 17 g in 8 ounces of water daily. HABITS: Does have a history of tobacco use. FAMILY HISTORY: Noncontributory. HISTORY AND PHYSICAL [id number] BRITNEY ROB SOCIAL HISTORY: The patient hopes to return back home and get back to her prior level of functioning. She lives with her daughter. REVIEW OF SYSTEMS: GENERAL: Does complain of weakness and fatigue. HEENT: Denies cold, cough, or congestion. CARDIOVASCULAR: Denies chest pain. PHYSICAL EXAMINATION: VITAL SIGNS: Stable, afebrile. GENERAL: A thin female in no acute distress upon exam. CHEST: Normocephalic and atraumatic. Mucosa moist. NECK: Supple. No lymphadenopathy. LUNGS: Decreased breath sounds bilaterally. HEART: Irregular rate and rhythm. ABDOMEN: Benign. EXTREMITIES: No clubbing, cyanosis or edema. NEUROLOGIC: She does have noted weakness. LABORATORY DATA: White count is 13,000, H&H of 13 and 42, and platelet count is 330. Her sodium is 140, potassium 3.4, BUN and creatinine of 13 and 0.8. Blood sugar is noted to be 99. 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 The patient has potential to make improvement. We instituted the following multidisciplinary therapies including, but not limited to physical, occupational, respiratory, speech, nutritional services, prosthetics and orthotics. Given her complex medical condition and risk for more complications, rehabilitation services cannot be provided at a low level of care such a skilled nurse facility. PLAN: 1. Admit to [facility] for intensive inpatient therapy to include the following disciplines: A. Physical therapy to improve gait, all transfer skills and bed mobility to a modified independent level. B. Occupational therapy to improve activities of daily living to a modified independent level. C. Case management to assist with discharge planning and placement options. D. Nutrition to assist with nutritional needs. E. Rehabilitation nursing to assist in monitoring the patient's underlying medical conditions and to assist with any type of bowel or bladder management. 2. The patient's current medication and medical care will be continued. 3. The patient will be placed on standard fall precautions. 4. I am going to go ahead and replace her potassium since it is somewhat low today. 5. We will continue on her current breathing treatments and will follow up in the a.m. TRANSINT:[id number] Voice Confirmation ID: [id number] DOCUMENT ID: [id number] RENÉE notes whether there has been none or any medical/functional change since admission: HISTORY AND PHYSICAL [id number] BRITNEY ROB F - No change since prescreen. RENÉE attests patient continues to be appropriate for IRF: - Continues to be appropriate. FEROZ ALAN MD at 1028 CC: [id number] DICTATION DATE: 04/04/1834 DISABILITY MANAGER: 04/04/18 0855 DIS IN 04/05/18 [place] [address] [place] [address]
== END 2018-04-05 12:45 | disposition short-term general hospital (02) | DRG 190 ==
LOC: D.REHAB 16:17
PROVIDERS: Internal Medicine Pulmonary Disease; ADMIT Emergency Medicine
PROC: 0BC68ZZ Extirpation of Matter from Right Lower Lobe Bronchus, Via Natural or Artificial Opening Endoscopic (ICD-10-PCS; 2018-04-05)
PROC: 0BCB8ZZ Extirpation of Matter from Left Lower Lobe Bronchus, Via Natural or Artificial Opening Endoscopic (ICD-10-PCS; principal; 2018-04-05 10:50)
DX: J44.1 Chronic obstructive pulmonary disease with (acute) exacerbation (principal); J96.21 Acute and chronic respiratory failure with hypoxia; J96.22 Acute and chronic respiratory failure with hypercapnia; N17.9 Acute kidney failure, unspecified; B37.0 Candidal stomatitis; F17.200 Nicotine dependence, unspecified, uncomplicated; I48.91 Unspecified atrial fibrillation; I10 Essential (primary) hypertension; E03.9 Hypothyroidism, unspecified; R53.81 Other malaise; R13.10 Dysphagia, unspecified; E87.8 Other disorders of electrolyte and fluid balance, not elsewhere classified; F41.9 Anxiety disorder, unspecified; K20.9 Esophagitis, unspecified; K44.9 Diaphragmatic hernia without obstruction or gangrene; K29.70 Gastritis, unspecified, without bleeding; E87.6 Hypokalemia; Z95.0 Presence of cardiac pacemaker

== ENCOUNTER 2018-04-25 19:22 | Inpatient (IN) | payer MEDICARE, OTHER ==
[~2018-04-25] VITALS: Ht 165.1 cm; Wt 58.5 kg
[~2018-04-25 19:22] MED LIST changes: +BROVANA15 MCG/2 M INH; +CARAFATE1 G PO; +FLORAJEN3 CAPS460 MG PO; +IPRAT-ALBUT 0.5-3 ML UPD; +LOVENOX60 MG/0.6 SC; +MELATONIN 3 MG1 TAB PO; +MUCINEX DM ER1 EAC1 PO; +NORVASC10 MG PO; +Nystatin Oral Susp [ PO; +PULMICORT0.5 MG/21 UPD; +SINGULAIR10 MG PO; +Tessalon Perle PO
[2018-04-25 21:20] VITALS: BP 146/72
[2018-04-25 22:47] VITALS: BP 146/72
[2018-04-26 07:42] LABS: BASOPHILS 0.2 % (0-2); EOSINOPHILS 4.1 % (0-7); HEMATOCRIT 30.4 % (36.0-48.0); HEMOGLOBIN 9.3 g/dL (12-16); IMMATURE GRANULOCYTES 0.5 % (0-5); LYMPHOCYTES 21.5 % (15-50); MCH 29.8 pg (26.0-34.0); MCHC 30.6 g/dL (31.0-37.0); MCV 97.4 fL (80.0-100.0); MEAN PLATELET VOLUME 9.2 fL (7.4-10.4); MONOCYTES 14.8 % (2-11); NEUTROPHILS 58.9 % (40-80); PLATELET COUNT 336 10x3/uL (130-400); RBC 3.12 10x6/uL (4.00-5.40); RDW 14.9 % (11.5-14.5); WBC 5.9 10x3/uL (4.8-10.8)
[2018-04-26 08:00] VITALS: BP 109/57
[2018-04-26 08:01] LABS: ANION GAP 10.8 mmol/L (8-16); CALCIUM 7.9 mg/dL (8.5-10.1); CARBON DIOXIDE 30.1 mmol/L (21.0-32.0); CREATININE - SERUM 0.8 mg/dL (0.6-1.3); POTASSIUM - SERUM 3.9 mmol/L (3.5-5.1)
[2018-04-26 11:15] VITALS: Ht 165.1 cm; Wt 58.5 kg
[2018-04-26 20:22] VITALS: BP 133/62
[2018-04-27 22:32] VITALS: BP 118/63
[2018-04-28 08:32] VITALS: BP 86/48
[2018-04-28 20:30] VITALS: BP 127/74
[2018-04-29 08:02] VITALS: BP 152/71
[2018-04-29 20:00] VITALS: BP 144/64
[2018-04-30 07:52] LABS: ANION GAP 9.1 mmol/L (8-16); CALCIUM 8.2 mg/dL (8.5-10.1); CARBON DIOXIDE 30.7 mmol/L (21.0-32.0); CREATININE - SERUM 0.9 mg/dL (0.6-1.3); POTASSIUM - SERUM 3.8 mmol/L (3.5-5.1)
[2018-04-30 07:55] LABS: BASOPHILS 0.4 % (0-2); EOSINOPHILS 2.6 % (0-7); HEMATOCRIT 31.3 % (36.0-48.0); HEMOGLOBIN 9.6 g/dL (12-16); IMMATURE GRANULOCYTES 1.7 % (0-5); LYMPHOCYTES 16.3 % (15-50); MCH 30.3 pg (26.0-34.0); MCHC 30.7 g/dL (31.0-37.0); MCV 98.7 fL (80.0-100.0); MEAN PLATELET VOLUME 9.1 fL (7.4-10.4); MONOCYTES 27.5 % (2-11); NEUTROPHILS 51.5 % (40-80); PLATELET COUNT 362 10x3/uL (130-400); RBC 3.17 10x6/uL (4.00-5.40); WBC 4.7 10x3/uL (4.8-10.8)
[2018-04-30 08:00] VITALS: BP 150/74
[2018-04-30 19:57] VITALS: BP 130/67
[2018-05-01 08:00] VITALS: BP 110/53
[2018-05-01 21:19] VITALS: BP 131/66
[2018-05-02 08:14] VITALS: BP 114/64
[2018-05-02 20:57] VITALS: BP 132/62
[2018-05-03 06:17] LABS: BASOPHILS 0.2 % (0-2); EOSINOPHILS 0 % (0-7); HEMATOCRIT 30.5 % (36.0-48.0); HEMOGLOBIN 9.5 g/dL (12-16); IMMATURE GRANULOCYTES 0.5 % (0-5); LYMPHOCYTES 10.3 % (15-50); MCH 30.4 pg (26.0-34.0); MCHC 31.1 g/dL (31.0-37.0); MCV 97.4 fL (80.0-100.0); MEAN PLATELET VOLUME 8.9 fL (7.4-10.4); MONOCYTES 7.5 % (2-11); NEUTROPHILS 81.5 % (40-80); PLATELET COUNT 368 10x3/uL (130-400); RBC 3.13 10x6/uL (4.00-5.40); RDW 14.7 % (11.5-14.5); WBC 5.8 10x3/uL (4.8-10.8)
[2018-05-03 06:24] LABS: ANION GAP 9.9 mmol/L (8-16); CALCIUM 8.5 mg/dL (8.5-10.1); CARBON DIOXIDE 31.1 mmol/L (21.0-32.0); CREATININE - SERUM 0.8 mg/dL (0.6-1.3)
[2018-05-03 07:45] VITALS: BP 109/79
--- NOTE | 2018-05-03 17:01 | RHP ---
PATIENT: BRITNEY ROB MEDICAL RECORD: [id number] ACCOUNT: [id number] LOCATION:[facility] D.1109 : 28 ADMISSION DATE: 04/25/18 REHABILITATION HISTORY AND PHYSICAL EXAMINATION POST ADMISSION PHYSICIAN EXAMINATION DATE OF ADMISSION: 04/25/2018 ADMITTING DIAGNOSIS: Critical illness myopathy. HISTORY OF PRESENT ILLNESS: The patient is an elderly female who is admitted for a neurological condition, critical illness myopathy. She was in our rehab. She did have a bronchoscopy on 04/05/2018 for increasing respiratory distress and mucus plugging. During the procedure, she received morphine and Versed. She was poorly responsive after receiving and required BiPAP. She went from a normal sinus rhythm to AFib. Imaging showed pneumonia in the right middle lobe that was resolving, but had increased consolidation and mucus plugging in the left lower lobe. She was admitted to ICU for hypoxia, pulmonary consultation. She was titrated on her O2 to keep her sat greater than 90%. She is on BiPAP twice a day for shortness of breath. She was on DuoNeb updrafts, Brovana and budesonide. On 04/08/2018, her breathing was much improved, but she complained of difficulty swallowing. She passed a bedside swallow eval and a modified barium swallow study, so GI consult was done. On 04/09/2018, a bronchoscopy was repeated for left lower lobe opacifications. She had mucus plugging. On 04/14/2018, she continued to have epigastric pain and also she had gastroesophageal scan that was negative for a delayed emptying. She had a bronchoalveolar lavage, which showed Achromobacter xylosoxidans. She has been clinically stable with no fever, leukocytosis, no significant productive cough, suspected that this was colonization rather than true infection. 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 Dr. Snyder and IR consulted, they felt it would be high risk for this the patient to have anything done at this time. On 04/22/2018, she had a CT-guided thoracentesis for pleural effusions with 850 cc removed. Previously, she was independent with her ADLs and mobility. She is working with PT, OT and speech therapy. She has been titrated down to 2-3 liters of O2 and maintained on a sat of 94%. She has poor balance. She tires easily, had a high risk for falls, proximal muscle weakness, deconditioning, self-care deficits. These are all barriers to her discharge. She and her family would like to her discharge at home at her prior level of functioning or better if possible. COMORBIDITIES: In this patient include anemia, leukocytosis, debility, tobacco use, left-sided pleural effusion, hypercoagulability, gastritis, small hiatal hernia, hypothyroidism, anxiety, odynophagia, coronary artery disease, pleural effusion, abjhg-vq-pgguffw respiratory failure with hypoxia. PAST MEDICAL HISTORY: Significant for COPD, hypertension, hyperlipidemia, hypothyroidism, gastroesophageal reflux, atrial fib, tobacco use, gastric ulcers, anxiety and constipation. PAST SURGICAL HISTORY: Includes pacemaker, hysterectomy, eye surgery, appendectomy and wrist surgery. ALLERGIES: PENICILLIN, CODEINE AND ASPIRIN. HISTORY AND PHYSICAL [id number] BRITNEY ROB CURRENT MEDICATIONS: Include Protonix 40 mg daily; Synthroid 88 mcg daily. She is on Floranex 460 mg daily; vitamin D 1000 units daily; Norvasc 10 mg daily; benzonatate 200 mg t.i.d. p.r.n.; Carafate 1 g q.i.d.; sotalol 80 mg b.i.d.; MiraLax 17 g in 8 ounces of water daily; Nystatin swish and swallow 5 cc before meals and at bedtime; Singulair 10 mg at bedtime; melatonin 3 mg as needed; Cozaar 50 mg b.i.d.; Ativan 0.25 mg every 6 hours p.r.n.; DuoNeb updrafts every 4 hours p.r.n.; Mucinex D 1 tab b.i.d.; Lovenox 50 mg subQ b.i.d.; Pradaxa 150 mg b.i.d.; Pulmicort 0.25 mg b.i.d. and Brovana 15 mcg b.i.d. HABITS: Does have a history of tobacco use. FAMILY HISTORY: Noncontributory. SOCIAL HISTORY: The patient hopes to return back home and get back to her prior level of functioning. REVIEW OF SYSTEMS: GENERAL: Does complain of weakness and fatigue. HEENT: Does complain of cold, cough, and congestion. CARDIOVASCULAR: Denies any chest pain. PHYSICAL EXAMINATION: VITAL SIGNS: Stable, afebrile. GENERAL: An elderly female in no acute distress upon exam. HEENT: Normocephalic and atraumatic. Mucosa moist. NECK: Supple. No lymphadenopathy. LUNGS: Clear. Breath sounds in the upper bradley. She does have decreased breath sounds in the bases. HEART: Irregular rate and rhythm. ABDOMEN: Benign. EXTREMITIES: No clubbing, cyanosis or edema. NEUROLOGIC: Does have noted weakness. LABORATORY DATA: Her white count is 5.9, H&H 9.3 and 30.4 and platelet count of 336. Sodium 143, potassium 3.9, BUN and creatinine of 10 and 0.8. Blood sugar is noted to be 101. ASSESSMENT: This is an 88-year-old female patient admitted to rehab with a working diagnosis of critical illness myopathy. The patient has potential to make improvement. We instituted the following multidisciplinary therapies including to, but not limited to physical, occupational therapy and prosthetics. Given her complex medical condition and risk for more complications, rehabilitation services cannot be provided at a low level of care such as skilled nurse facility. PLAN: 1. Admit to [facility] for intensive inpatient therapy to include the following disciplines: A. Physical therapy to improve gait, all transfer skills and bed mobility to a modified independent level. B. Occupational therapy to a modified independent level. C. Case management to assist with discharge planning and placement options. D. Nutrition to assist with nutritional needs. E. Rehabilitation nursing to assist in monitoring the patient's underlying HISTORY AND PHYSICAL [id number] BRITNEY ROB medical conditions and to assist with any type of bowel or bladder management. 2. The patient's current medication and medical care will be continued. 3. The patient will be placed on standard fall precautions. 4. I am going to follow her up in the a.m. Continue on appropriate meds and I will treat appropriately. TRANSINT:[id number] Voice Confirmation ID: [id number] DOCUMENT ID: [id number] RENÉE notes whether there has been none or any medical/functional change since admission: - No change since prescreen. RENÉE attests patient continues to be appropriate for IRF: - Continues to be appropriate. FEROZ ALAN MD at 1701 CC: [id number] DICTATION DATE: 04/26/18 0856 GUEST RELATIONS EXECUTIVE: 04/26/18 1007 ADM IN [facility] [address] [place] [id number]
[2018-05-03 19:30] VITALS: BP 124/71
[2018-05-04 19:26] VITALS: BP 111/60
[2018-05-05 08:12] VITALS: BP 125/61; BP 133/70
[2018-05-05 19:19] VITALS: BP 150/58
[2018-05-06 07:40] LABS: BASOPHILS 0.1 % (0-2); EOSINOPHILS 0 % (0-7); HEMATOCRIT 33.4 % (36.0-48.0); HEMOGLOBIN 10.4 g/dL (12-16); IMMATURE GRANULOCYTES 1.5 % (0-5); LYMPHOCYTES 12.5 % (15-50); MCH 30.1 pg (26.0-34.0); MCHC 31.1 g/dL (31.0-37.0); MCV 96.5 fL (80.0-100.0); MEAN PLATELET VOLUME 8.6 fL (7.4-10.4); MONOCYTES 10.4 % (2-11); NEUTROPHILS 75.5 % (40-80); PLATELET COUNT 381 10x3/uL (130-400); RBC 3.46 10x6/uL (4.00-5.40); RDW 14.6 % (11.5-14.5); WBC 9.9 10x3/uL (4.8-10.8)
[2018-05-06 07:58] LABS: ANION GAP 7.1 mmol/L (8-16); CARBON DIOXIDE 33.4 mmol/L (21.0-32.0); CREATININE - SERUM 0.9 mg/dL (0.6-1.3); POTASSIUM - SERUM 3.5 mmol/L (3.5-5.1)
[2018-05-06 08:16] VITALS: BP 151/79
[2018-05-06 19:30] VITALS: BP 142/66
[2018-05-07] MEDS ORDERED: MEGACE40 MG PO (08:11)
[2018-05-07] MEDS ORDERED: PREDNISONE20 MG PO (08:11)
[2018-05-07 08:16] VITALS: BP 119/67
== END 2018-05-07 16:11 | disposition home health service (06) | DRG 91 ==
LOC: D.REHAB 19:22
PROVIDERS: ADMIT Emergency Medicine; ATTEND Emergency Medicine
DX: G72.81 Critical illness myopathy (principal); J96.21 Acute and chronic respiratory failure with hypoxia; J90 Pleural effusion, not elsewhere classified; J44.1 Chronic obstructive pulmonary disease with (acute) exacerbation; I25.10 Atherosclerotic heart disease of native coronary artery without angina pectoris; R13.10 Dysphagia, unspecified; F41.9 Anxiety disorder, unspecified; E03.9 Hypothyroidism, unspecified; K44.9 Diaphragmatic hernia without obstruction or gangrene; K29.70 Gastritis, unspecified, without bleeding; F17.200 Nicotine dependence, unspecified, uncomplicated; D64.9 Anemia, unspecified; R53.81 Other malaise; D72.829 Elevated white blood cell count, unspecified; E87.6 Hypokalemia; I10 Essential (primary) hypertension

== ENCOUNTER 2018-06-04 13:26 | Inpatient (IN) | payer MEDICARE, OTHER ==
[~2018-06-04] VITALS: Ht 165.1 cm; Wt 56.4 kg
[~2018-06-04 13:26] MED LIST changes: +MEGACE40 MG PO; +PREDNISONE20 MG PO
[2018-06-04 13:58] LABS: BASOPHILS 0.2 % (0-2); HEMATOCRIT 32.2 % (36.0-48.0); IMMATURE GRANULOCYTES 1.8 % (0-5); LYMPHOCYTES 17.4 % (15-50); MCH 29.2 pg (26.0-34.0); MCHC 31.1 g/dL (31.0-37.0); MCV 93.9 fL (80.0-100.0); MEAN PLATELET VOLUME 8.3 fL (7.4-10.4); NEUTROPHILS 58.6 % (40-80); RBC 3.43 10x6/uL (4.00-5.40); RDW 15.1 % (11.5-14.5)
[2018-06-04] MEDS ORDERED: ROCEPHIN (13:58)
[2018-06-04 13:59] LABS: PLATELET COUNT 496 10x3/uL (130-400)
[2018-06-04] MEDS ORDERED: ZITHROMAX250 MG PO (14:03)
[2018-06-04] MEDS ORDERED: GUAIFENESI100 MG/5 M PO (14:05)
[2018-06-04] MEDS ORDERED: ACETAMINOPHEN500 M1 PO (14:06)
[2018-06-04 14:10] LABS: ALBUMIN 2.6 g/dL (3.4-5.0); ANION GAP 8.5 mmol/L (8-16); BILIRUBIN - TOTAL 0.37 mg/dL (0.2-1.3); CALCIUM 8.4 mg/dL (8.5-10.1); CARBON DIOXIDE 32.7 mmol/L (21.0-32.0); CREATININE - SERUM 1.1 mg/dL (0.6-1.3); POTASSIUM - SERUM 3.2 mmol/L (3.5-5.1); PROTEIN - SERUM 6.5 g/dL (6.4-8.2)
[2018-06-04 14:16] LABS: INR 1.77 (0.85-1.17)
[2018-06-04 14:17] LABS: APTT 59.4 SECONDS (22.8-39.4)
[2018-06-04 14:30] LABS: CKMB 0.3 U/L (0.0-3.6); CREATINE KINASE 16 UL (21-215)
[2018-06-04 14:31] LABS: TROPONIN-I < 0.017 ng/mL (0.000-0.060)
[2018-06-04 15:00] VITALS: BP 137/73
[2018-06-04 15:13] LABS: APPEARANCE CLEAR (CLEAR); BILIRUBIN NEGATIVE (NEGATIVE); COLOR YELLOW (YELLOW); GLUCOSE NEGATIVE (NEGATIVE); KETONE NEGATIVE (NEGATIVE); NITRITE NEGATIVE (NEGATIVE); PROTEIN NEGATIVE (NEGATIVE); UROBILINOGEN NORMAL (NORMAL)
[2018-06-04 15:14] LABS: BACTERIA FEW /hpf (NONE SEEN); EPITHELIAL CELLS 0-5 /hpf (0-5); RED CELLS - URINE 0-5 /hpf (0-5); WHITE CELLS - URINE 0-5 /hpf (0-5)
[2018-06-04 16:00] VITALS: BP 138/67
[2018-06-04 20:55] VITALS: BP 129/59
[2018-06-05 00:46] VITALS: BP 122/68
[2018-06-05 03:33] VITALS: BP 129/59; BMI 19.8
[2018-06-05 05:43] VITALS: BP 108/70
[2018-06-05 05:49] LABS: ALBUMIN 2.5 g/dL (3.4-5.0); BILIRUBIN - TOTAL 0.33 mg/dL (0.2-1.3); CALCIUM 8.3 mg/dL (8.5-10.1); CARBON DIOXIDE 34.9 mmol/L (21.0-32.0); PROTEIN - SERUM 6.5 g/dL (6.4-8.2)
[2018-06-05 06:16] LABS: BASOPHILS 0.2 % (0-2); HEMATOCRIT 33.2 % (36.0-48.0); HEMOGLOBIN 10.5 g/dL (12-16); LYMPHOCYTES 17.7 % (15-50); MCH 29.2 pg (26.0-34.0); MCHC 31.6 g/dL (31.0-37.0); MCV 92.5 fL (80.0-100.0); MEAN PLATELET VOLUME 8.7 fL (7.4-10.4); MONOCYTES 17.7 % (2-11); NEUTROPHILS 62.4 % (40-80); PLATELET COUNT 587 10x3/uL (130-400); RBC 3.59 10x6/uL (4.00-5.40); RDW 14.9 % (11.5-14.5); WBC 6.2 10x3/uL (4.8-10.8)
[2018-06-05 06:59] LABS: ANION GAP 7.9 mmol/L (8-16); POTASSIUM - SERUM 2.8 mmol/L (3.5-5.1)
[2018-06-05 11:00] VITALS: BP 110/68
[2018-06-05 13:30] VITALS: BMI 19.6
--- NOTE | 2018-06-05 14:39 | EC ---
PATIENT:BRITNEY ROB DATE OF SERVICE: 06/04/18 SEX: F MEDICAL RECORD: [id number] DATE OF : 28 LOCATION:D.M2 D.213 AGE OF PATIENT: 88 ADMISSION DATE: 06/04/18 REFERRING PHYSICIAN: INTERPRETING PHYSICIAN: MARTIN PEÑA MD ECHOCARDIOGRAM REPORT ECHO CHARGES 4 ECHO COMPLETE Date: 06/05/17 CLINICAL DIAGNOSIS: INCREASED SOB AND BNP HX OF COPD ECHOCARDIOGRAPHIC MEASUREMENTS (adult normal given) AC root (d.<3.7cm) cm LV Septum d (<1.2 cm> 1.1 cm Valve Excursion cm LV Septum (systole) 1.2 cm Left Atria (s.<4.0cm> 3.9 cm LVPW d(<1.2cm) 1.2 cm RV (d.<2.3cm) 3.2 cm LVPW (sytole) 1.3 cm LV diastole(<5.6CM) 4.1 cm MV E-F(>70mm/sec) cm LV systole 2.8 cm LVOT Diameter 1.7 cm MV exc.(>10mm) 1.3 cm Est.ejection fraction (50-75%) % DOPPLER: LVIT cm/sec A 63.0 cm/sec E 79.0 cm/sec LA cm/sec RVSP 38 mmHg LVOT 101 cm/sec AOP1/2T m/s Asc. Ao 184 cm/sec RVOT cm/sec RA cm/sec PA cm/sec AV Gradient Peak 13.61mmHg AV Mean 8.54 mmHg AV Area 1.5 cm MV Gradient Peak 2.99 mmHg MV Mean 0.93 mmHg MV Area cm COMMENTS: Nondestructive Tester: Hemant MCGUIRE Engineering Lecturer: 1 Dr. Peña TAPE# PACS Pericardial Effusion N DATE OF SERVICE: 06/04/2018 PROCEDURE: Echocardiogram. FINDINGS: 1. Left ventricular chamber size is within normal limits. Left ventricular systolic function is normal. Overall ejection fraction estimated at 65%. 2. Left atrium, right atrium, and right ventricle chamber sizes are within normal limits. 3. Valvular structures have normal structure and motion. ECHOCARDIOGRAM REPORT [id number] BRITNEY ROB 4. Doppler interrogation reveals mild tricuspid regurgitation, no other valvular insufficiency or stenosis. 5. No evidence of pericardial effusion or left ventricular thrombus. TRANSINT:[id number] Voice Confirmation ID: [id number] DOCUMENT ID: [id number] MARTIN PEÑA MD at 1439 CC: [id number] DICTATION DATE: 06/05/18 1110 HADOOP CONSULTANT: 06/05/18 1318 ADM IN [facility] [address] [place] [address]
[2018-06-05 16:37] VITALS: BP 115/76
[2018-06-05 21:07] VITALS: BP 125/77
[2018-06-06 05:02] VITALS: BP 122/57
[2018-06-06 06:28] LABS: BASOPHILS 0.2 % (0-2); EOSINOPHILS 0 % (0-7); HEMATOCRIT 31.3 % (36.0-48.0); HEMOGLOBIN 9.6 g/dL (12-16); IMMATURE GRANULOCYTES 0.7 % (0-5); LYMPHOCYTES 10.1 % (15-50); MCH 28.7 pg (26.0-34.0); MCHC 30.7 g/dL (31.0-37.0); MCV 93.7 fL (80.0-100.0); MEAN PLATELET VOLUME 8.6 fL (7.4-10.4); MONOCYTES 2.4 % (2-11); NEUTROPHILS 86.6 % (40-80); PLATELET COUNT 503 10x3/uL (130-400); RBC 3.34 10x6/uL (4.00-5.40); RDW 15.1 % (11.5-14.5)
[2018-06-06 06:35] LABS: WBC 4.2 10x3/uL (4.8-10.8)
[2018-06-06 06:48] LABS: ALBUMIN 2.3 g/dL (3.4-5.0); ANION GAP 9.3 mmol/L (8-16); BILIRUBIN - TOTAL 0.3 mg/dL (0.2-1.3); CALCIUM 8.5 mg/dL (8.5-10.1); CARBON DIOXIDE 30.6 mmol/L (21.0-32.0); POTASSIUM - SERUM 3.9 mmol/L (3.5-5.1); PROTEIN - SERUM 6.1 g/dL (6.4-8.2)
[2018-06-06 09:39] VITALS: BP 178/80
[2018-06-06 11:45] VITALS: BP 112/52
[2018-06-06 14:55] VITALS: Ht 165.1 cm; Wt 56.4 kg
--- NOTE | 2018-06-06 16:07 | MORECARE ---
CASE MANAGEMENT DISCHARGE SUMMARY PATIENT: BRITNEY ROB UNIT: [id number] ADM DATE: 06/04/18 AGE: 88 : 29 SEX: F ROOM/BED: D.2130 AUTHOR: PORTIA FULLER PHYSICIAN: REFERRING PHYSICIAN: ROCKY CHU MD DATE OF SERVICE: 06/06/18 Discharge Plan Patient Name: BRITNEY ROB Facility: [facility]:[place] : 1930 Planned Disposition: Group Home Facility Anticipated Discharge Date: Discharge Date: Expected LOS: Initial Reviewer: [email or web address] Initial Review Date: 06/06/2018 Generated: 06/06/18 5:07 pm Patient Name: BRITNEY ROB Page [id number] at 1607 All edits/amendments must be made on the electronic document DICTATION DATE: 06/06/181605 FENCE INSTALLER FOREMAN: LAUREN 06/06/181605 RPT#: [id number] DC DATE: STATUS: ADM IN [facility] [address] [place] [address] END OF REPORT
--- NOTE | 2018-06-06 16:16 | MORECARE ---
CASE MANAGEMENT DISCHARGE SUMMARY PATIENT: BRITNEY ROB UNIT: [id number] ADM DATE: 06/04/18 AGE: 88 : 29 SEX: F ROOM/BED: D.1873 AUTHOR: ALINA,DOC PHYSICIAN: REFERRING PHYSICIAN: ROCKY CHU MD DATE OF SERVICE: 06/06/18 Discharge Plan Patient Name: BRITNEY ROB Facility: [facility]:[place] : 1930 Planned Disposition: [facility] Facility Anticipated Discharge Date: Discharge Date: Expected LOS: Initial Reviewer: [email or web address] Initial Review Date: 06/06/2018 Generated: 06/06/18 5:16 pm Comments DCP- Discharge Planning Updated by [email or web address]: Tyshawn Flannery on 06/06/18 3:[address] Patient Name: BRITNEY ROB Admission Status: ER Accout number: [id number] Admission Date: 06-04-2018 : 1930 Admission Diagnosis: Attending: ROCKY CHU Current LOS: 2 Anticipated DC Date: Planned Disposition: [facility]ci Facility Primary Insurance: MEDICARE A & B PLANNED EXTERNAL PROVIDER: [facility], MEDICARE REHAB BED Discharge Planning Comments: CM MET WITH PT IN ROOM TO DISCUSS DISCHARGE NEEDS AND PLANNING. PT REPORTS LIVING HOME ALONE, WITH ONE OF HER CHILDREN STAYING THE NIGHT WITH HER AT HOME. PT STATES SHE IS NOW IN REHAB AT [facility] AND PLANS TO RETURN THERE AT DISCHARGE TO CONTINUE HER REHAB SERVICES. PROVIDER LISTING PROVIDED, CHOICE FOR [facility] SIGENED. IMPORTANT MESSAGE FROM MEDICARE PROVIDED AND EXPLAINED. CM FAXED HOSPITAL UPDATE TO [facility] AT [phone]. FOR DISCHARGE, FAX DISCHARGE INFORMATION TO [facility] AT [phone]. CALL NURSE REPORT TO [facility] AT [phone]. [facility] TO ARRANGE VAN TRANSPORT. Drainlayer: Tyshawn Flannery DCPIA - Discharge Planning Initial Assessment Updated by [email or web address]: Tyshawn Flannery on 06/06/18 4:08 pm * Is the patient Alert and Oriented? Yes * How many steps to enter\exit or inside your home? NONE * PCP DR. JIMENEZ * Pharmacy [facility] [address] [place] [address] * Preadmission Environment [facility] Facility * Facility Name [facility] * ADLs Partial Dependent * Partial ADLs (Assistance needed) Ambulation Bathing Dressing Medication Management Transfers * Equipment Other * Other Equipment ALL MEDICAL EQUIPMENT PROVIDED BY FACILITY HOME: NEB, OXYGEN, ROLLING WALKER * List name and contact numbers for known caregivers / representatives who currently or will assist patient after discharge: [place] LIEBERMAN, DTR, * Verbal permission to speak to the caregivers and representatives has been obtained from the patient. Yes * Community resources currently utilized None * Please name any agencies selected above. NONE * Additional services required to return to the preadmission environment? No * Can the patient safely return to the preadmission environment? Yes * Has this patient been hospitalized within the prior 30 days at any hospital? No Last DP export: 06/06/18 3:07 p Patient Name: BRITNEY ROB Page [phone] at 1616 All edits/amendments must be made on the electronic document DICTATION DATE: 06/06/181615 UTILIZATION REVIEW NURSE: LAUREN 06/06/181615 RPT#: [id number] DC DATE: STATUS: ADM IN [facility] [address] [place] [address] END OF REPORT
--- NOTE | 2018-06-06 16:29 | MORECARE ---
CASE MANAGEMENT DISCHARGE SUMMARY PATIENT: BRITNEY ROB UNIT: [id number] ADM DATE: 06/04/18 AGE: 88 : 29 SEX: F ROOM/BED: D.7442 AUTHOR: ALINA,DOC PHYSICIAN: REFERRING PHYSICIAN: ROCKY CHU MD DATE OF SERVICE: 06/06/18 Discharge Plan Patient Name: BRITNEY ROB Facility: [facility]:[place] : 1930 Planned Disposition: Half-Way Facility Anticipated Discharge Date: Discharge Date: Expected LOS: Initial Reviewer: [email or web address] Initial Review Date: 06/06/2018 Generated: 06/06/18 5:29 pm Comments DCP- Discharge Planning Updated by [email or web address]: Tyshawn Flannery on 06/06/18 3:[address] Patient Name: BRITNEY ROB Admission Status: ER Accout number: [id number] Admission Date: 06-04-2018 : 1930 Admission Diagnosis: Attending: ROCKY CHU Current LOS: 2 Anticipated DC Date: Planned Disposition: Half-Way Facility Primary Insurance: MEDICARE A & B PLANNED EXTERNAL PROVIDER: [facility], MEDICARE REHAB BED Discharge Planning Comments: CM MET WITH PT IN ROOM TO DISCUSS DISCHARGE NEEDS AND PLANNING. PT REPORTS LIVING HOME ALONE, WITH ONE OF HER CHILDREN STAYING THE NIGHT WITH HER AT HOME. PT STATES SHE IS NOW IN REHAB AT [facility] AND PLANS TO RETURN THERE AT DISCHARGE TO CONTINUE HER REHAB SERVICES. PROVIDER LISTING PROVIDED, CHOICE FOR [facility] SIGENED. IMPORTANT MESSAGE FROM MEDICARE PROVIDED AND EXPLAINED. CM FAXED HOSPITAL UPDATE TO [facility] AT [phone]. FOR DISCHARGE, FAX DISCHARGE INFORMATION TO [facility] AT [phone]. CALL NURSE REPORT TO [facility] AT [phone]. [facility] TO ARRANGE VAN TRANSPORT. Implementation Specialist: Tyshawn Flannery DCPIA - Discharge Planning Initial Assessment Updated by [email or web address]: Tyshawn Flannery on 06/06/18 4:08 pm * Is the patient Alert and Oriented? Yes * How many steps to enter\exit or inside your home? NONE * PCP DR. JIMENEZ * Pharmacy [id number] * Preadmission Environment Half-Way Facility * Facility Name [facility] * ADLs Partial Dependent * Partial ADLs (Assistance needed) Ambulation Bathing Dressing Medication Management Transfers * Equipment Other * Other Equipment ALL MEDICAL EQUIPMENT PROVIDED BY FACILITY HOME: NEB, OXYGEN, ROLLING WALKER * List name and contact numbers for known caregivers / representatives who currently or will assist patient after discharge: [place] LIEBERMAN, DTR, * Verbal permission to speak to the caregivers and representatives has been obtained from the patient. Yes * Community resources currently utilized None * Please name any agencies selected above. NONE * Additional services required to return to the preadmission environment? No * Can the patient safely return to the preadmission environment? Yes * Has this patient been hospitalized within the prior 30 days at any hospital? No External Providers External Provider: [facility] Next Contact Date: 06/06/2018 Service Request Date: Service Type: Resolution: Reviewer: Comments: Last DP export: 06/06/18 3:16 p Patient Name: BRITNEY ROB Page [phone] at 1629 All edits/amendments must be made on the electronic document DICTATION DATE: 06/06/181628 TRANSMITTER ENGINEER IN CHARGE: LAUREN 06/06/181628 RPT#: [id number] DC DATE: STATUS: ADM IN [facility] [address] [place] [address] END OF REPORT
[2018-06-06 16:48] VITALS: BP 120/71
[2018-06-06 21:14] VITALS: BP 104/48
[2018-06-07 03:53] VITALS: BP 99/67
[2018-06-07 05:43] LABS: BASOPHILS 0.1 % (0-2); EOSINOPHILS 0 % (0-7); HEMATOCRIT 29.5 % (36.0-48.0); HEMOGLOBIN 9.1 g/dL (12-16); IMMATURE GRANULOCYTES 0.9 % (0-5); LYMPHOCYTES 7.3 % (15-50); MCH 28.9 pg (26.0-34.0); MCHC 30.8 g/dL (31.0-37.0); MCV 93.7 fL (80.0-100.0); MEAN PLATELET VOLUME 8.4 fL (7.4-10.4); NEUTROPHILS 82.7 % (40-80); PLATELET COUNT 497 10x3/uL (130-400); RBC 3.15 10x6/uL (4.00-5.40); RDW 15.1 % (11.5-14.5)
[2018-06-07 05:51] LABS: WBC 14.6 10x3/uL (4.8-10.8)
[2018-06-07 06:07] LABS: ALBUMIN 2.3 g/dL (3.4-5.0); ANION GAP 8.3 mmol/L (8-16); BILIRUBIN - TOTAL 0.19 mg/dL (0.2-1.3); CALCIUM 8.6 mg/dL (8.5-10.1); CARBON DIOXIDE 31.4 mmol/L (21.0-32.0); POTASSIUM - SERUM 3.7 mmol/L (3.5-5.1); PROTEIN - SERUM 5.8 g/dL (6.4-8.2)
[2018-06-07 08:00] VITALS: BP 100/68
--- NOTE | 2018-06-07 08:59 | MORECARE ---
CASE MANAGEMENT DISCHARGE SUMMARY PATIENT: BRITNEY ROB UNIT: [id number] ADM DATE: 06/04/18 AGE: 88 : 29 SEX: F ROOM/BED: D.2130 AUTHOR: PORTIA FULLER PHYSICIAN: REFERRING PHYSICIAN: ROCKY CHU MD DATE OF SERVICE: 06/07/18 Discharge Plan Patient Name: BRITNEY ROB Facility: [facility]:[place] : 1930 Planned Disposition: Alf Facility Anticipated Discharge Date: Discharge Date: Expected LOS: Initial Reviewer: [email or web address] Initial Review Date: 06/06/2018 Generated: 06/07/18 9:58 am Comments DCP- Discharge Planning Updated by [id number]: Tyshawn Flannery on 06/07/18 7:[address] Patient Name: BRITNEY ROB Encounter No: [id number] : 1930 Primary Insurance: MEDICARE A & B Anticipated DC Date: Planned Disposition: Alf Facility External Planned Provider: [facility], MEDICARE REHAB BED Discharge Planning Comments: CM SPOKE TO DAO FROM [facility] AT [phone], WHO ADVISED THEY RECEIVED THE UPDATE AND VERIFIED PT IS FROM SKILLED BED AND THEY PLAN TO RETURN PT TO SKILLED BED AT [facility]. FOR DISCHARGE, FAX DISCHARGE INFORMATION TO [facility] AT [phone]. CALL NURSE REPORT TO [facility] AT [phone]. [facility] TO ARRANGE VAN TRANSPORT. Assistant Manager: Tyshawn Flannery DCP- Discharge Planning Updated by [email or web address]: Tyshawn Flannery on 06/06/18 3:[address] Patient Name: BRITNEY ROB Admission Status: ER Accout number: [id number] Admission Date: 06-04-2018 : 1930 Admission Diagnosis: Attending: ROCKY CHU Current LOS: 2 Anticipated DC Date: Planned Disposition: Alf Facility Primary Insurance: MEDICARE A & B PLANNED EXTERNAL PROVIDER: [facility], MEDICARE REHAB BED Discharge Planning Comments: CM MET WITH PT IN ROOM TO DISCUSS DISCHARGE NEEDS AND PLANNING. PT REPORTS LIVING HOME ALONE, WITH ONE OF HER CHILDREN STAYING THE NIGHT WITH HER AT HOME. PT STATES SHE IS NOW IN REHAB AT [facility] AND PLANS TO RETURN THERE AT DISCHARGE TO CONTINUE HER REHAB SERVICES. PROVIDER LISTING PROVIDED, CHOICE FOR [facility] SIGENED. IMPORTANT MESSAGE FROM MEDICARE PROVIDED AND EXPLAINED. CM FAXED HOSPITAL UPDATE TO [facility] AT [phone]. FOR DISCHARGE, FAX DISCHARGE INFORMATION TO [facility] AT [phone]. CALL NURSE REPORT TO [facility] AT [phone]. [facility] TO ARRANGE VAN TRANSPORT. Assistant Manager: Tyshawn Flannery DCPIA - Discharge Planning Initial Assessment Updated by [id number]: Tyshawn Flannery on 06/06/18 4:08 pm * Is the patient Alert and Oriented? Yes * How many steps to enter\exit or inside your home? NONE * PCP DR. JIMENEZ * Pharmacy [address] * Preadmission Environment Alf Facility * Facility Name [facility] * ADLs Partial Dependent * Partial ADLs (Assistance needed) Ambulation Bathing Dressing Medication Management Transfers * Equipment Other * Other Equipment ALL MEDICAL EQUIPMENT PROVIDED BY FACILITY HOME: NEB, OXYGEN, ROLLING WALKER * List name and contact numbers for known caregivers / representatives who currently or will assist patient after discharge: [place] LIEBERMAN, R, * Verbal permission to speak to the caregivers and representatives has been obtained from the patient. Yes * Community resources currently utilized None * Please name any agencies selected above. NONE * Additional services required to return to the preadmission environment? No * Can the patient safely return to the preadmission environment? Yes * Has this patient been hospitalized within the prior 30 days at any hospital? No Last DP export: 06/06/18 3:29 p Patient Name: BRITNEY ROB Page [phone] at 0859 All edits/amendments must be made on the electronic document DICTATION DATE: 06/07/18857 YOUTH OFFICER: LAUREN 06/07/18857 RPT#: [id number] DC DATE: STATUS: ADM IN [facility] [address] [place] [address] END OF REPORT
[2018-06-07 11:52] VITALS: BP 110/66
[2018-06-07 15:05] VITALS: BP 108/60
[2018-06-07 20:32] VITALS: BP 117/57
[2018-06-08 00:47] VITALS: BP 109/60
[2018-06-08 05:24] VITALS: BP 108/57
[2018-06-08 05:55] LABS: BASOPHILS 0.2 % (0-2); EOSINOPHILS 0 % (0-7); HEMATOCRIT 28.9 % (36.0-48.0); IMMATURE GRANULOCYTES 2.2 % (0-5); MCH 29.2 pg (26.0-34.0); MCHC 31.1 g/dL (31.0-37.0); MCV 93.8 fL (80.0-100.0); MEAN PLATELET VOLUME 8.7 fL (7.4-10.4); MONOCYTES 15.2 % (2-11); NEUTROPHILS 68.4 % (40-80); PLATELET COUNT 511 10x3/uL (130-400); RBC 3.08 10x6/uL (4.00-5.40); RDW 15.6 % (11.5-14.5); WBC 11.7 10x3/uL (4.8-10.8)
[2018-06-08 06:23] LABS: ALBUMIN 2.1 g/dL (3.4-5.0); ANION GAP 9.9 mmol/L (8-16); BILIRUBIN - TOTAL 0.13 mg/dL (0.2-1.3); CALCIUM 8.3 mg/dL (8.5-10.1); CARBON DIOXIDE 30.6 mmol/L (21.0-32.0); POTASSIUM - SERUM 3.5 mmol/L (3.5-5.1); PROTEIN - SERUM 5.3 g/dL (6.4-8.2)
[2018-06-08 08:10] VITALS: BP 126/72
[2018-06-08 11:51] VITALS: BP 122/68
[2018-06-08 16:01] VITALS: BP 117/64
[2018-06-08 20:00] VITALS: BP 112/74
[2018-06-09] VITALS: BP 110/72
[2018-06-09 04:00] VITALS: BP 101/67
[2018-06-09 06:40] LABS: ALBUMIN 2.3 g/dL (3.4-5.0); BILIRUBIN - TOTAL 0.13 mg/dL (0.2-1.3); CALCIUM 8.5 mg/dL (8.5-10.1); CARBON DIOXIDE 34.8 mmol/L (21.0-32.0); PROTEIN - SERUM 5.6 g/dL (6.4-8.2)
[2018-06-09 06:44] LABS: ANION GAP 7.5 mmol/L (8-16); POTASSIUM - SERUM 4.3 mmol/L (3.5-5.1)
[2018-06-09 07:20] LABS: HEMATOCRIT 31.3 % (36.0-48.0); HEMOGLOBIN 9.5 g/dL (12-16); MCH 28.9 pg (26.0-34.0); MCHC 30.4 g/dL (31.0-37.0); MCV 95.1 fL (80.0-100.0); PLATELET COUNT 512 10x3/uL (130-400); RBC 3.29 10x6/uL (4.00-5.40); RDW 15.9 % (11.5-14.5)
[2018-06-09 08:11] LABS: LYMPHOCYTES 12 % (15-50); MONOCYTES 18 % (2-11); NEUTROPHILS 62 % (40-80); PLATELET ESTIMATE NORMAL
[2018-06-09 08:14] VITALS: BP 105/62
[2018-06-09 12:08] VITALS: BP 103/68
[2018-06-09 15:49] VITALS: BP 102/58
[2018-06-09 20:33] VITALS: BP 99/61
[2018-06-10 00:33] VITALS: BP 99/55
[2018-06-10 05:08] VITALS: BP 93/55
[2018-06-10 06:37] LABS: ALBUMIN 2.2 g/dL (3.4-5.0); ANION GAP 5.6 mmol/L (8-16); BILIRUBIN - TOTAL 0.2 mg/dL (0.2-1.3); CALCIUM 8.6 mg/dL (8.5-10.1); CARBON DIOXIDE 33.5 mmol/L (21.0-32.0); CREATININE - SERUM 0.9 mg/dL (0.6-1.3); POTASSIUM - SERUM 4.1 mmol/L (3.5-5.1); PROTEIN - SERUM 5.4 g/dL (6.4-8.2)
[2018-06-10 06:59] LABS: BASOPHILS 0.8 % (0-2); EOSINOPHILS 1.2 % (0-7); HEMATOCRIT 32.2 % (36.0-48.0); HEMOGLOBIN 9.6 g/dL (12-16); IMMATURE GRANULOCYTES 9.7 % (0-5); LYMPHOCYTES 21.9 % (15-50); MCH 28.1 pg (26.0-34.0); MCHC 29.8 g/dL (31.0-37.0); MCV 94.2 fL (80.0-100.0); MEAN PLATELET VOLUME 8.8 fL (7.4-10.4); MONOCYTES 15.2 % (2-11); NEUTROPHILS 51.2 % (40-80); PLATELET COUNT 483 10x3/uL (130-400); RBC 3.42 10x6/uL (4.00-5.40); RDW 15.6 % (11.5-14.5)
[2018-06-10 08:00] VITALS: BP 110/50
[2018-06-10 16:20] VITALS: BP 122/48
[2018-06-10 20:00] VITALS: BP 116/63
[2018-06-11] VITALS: BP 97/51
[2018-06-11 04:00] VITALS: BP 98/53
[2018-06-11 08:57] VITALS: BP 130/60
[2018-06-11 11:59] VITALS: BP 136/62
[2018-06-11 16:11] VITALS: BP 142/79
[2018-06-11 20:00] VITALS: BP 120/64
[2018-06-12 00:30] VITALS: BP 110/58
[2018-06-12 05:00] VITALS: BP 110/6
[2018-06-12 08:39] VITALS: BP 104/66
[2018-06-12 11:51] VITALS: BP 109/68
--- NOTE | 2018-06-12 13:26 | MORECARE ---
CASE MANAGEMENT DISCHARGE SUMMARY PATIENT: BRITNEY ROB UNIT: [id number] ADM DATE: 06/04/18 AGE: 88 : 29 SEX: F ROOM/BED: D.2130 AUTHOR: PORTIA FULLER PHYSICIAN: REFERRING PHYSICIAN: ROCKY CHU MD DATE OF SERVICE: 06/12/18 Discharge Plan Patient Name: BRITNEY ROB Facility: [facility]:[place] : 1930 Planned Disposition: Alf Facility Anticipated Discharge Date: 06/12/18 Discharge Date: Expected LOS: 8 Initial Reviewer: [email or web address] Initial Review Date: 06/06/2018 Generated: 06/12/18 2:26 pm Comments DCP- Discharge Planning Updated by [email or web address]: Tyshawn Flannery on 06/07/18 7:[address] Patient Name: BRITNEY ROB Encounter No: [id number] : 1930 Primary Insurance: MEDICARE A & B Anticipated DC Date: Planned Disposition: Alf Facility External Planned Provider: [facility], MEDICARE REHAB BED Discharge Planning Comments: CM SPOKE TO DAO FROM [facility] AT [phone], WHO ADVISED THEY RECEIVED THE UPDATE AND VERIFIED PT IS FROM SKILLED BED AND THEY PLAN TO RETURN PT TO SKILLED BED AT [facility]. FOR DISCHARGE, FAX DISCHARGE INFORMATION TO [facility] AT [phone]. CALL NURSE REPORT TO [facility] AT [phone]. [facility] TO ARRANGE VAN TRANSPORT. Club Manager: Tyshawn Flannery DCP- Discharge Planning Updated by [email or web address]: Tyshawn Flannery on 06/06/18 3:[address] Patient Name: BRITNEY ROB Admission Status: ER Accout number: [id number] Admission Date: 06-04-2018 : 1930 Admission Diagnosis: Attending: ROCKY CHU Current LOS: 2 Anticipated DC Date: Planned Disposition: Alf Facility Primary Insurance: MEDICARE A & B PLANNED EXTERNAL PROVIDER: [facility], MEDICARE REHAB BED Discharge Planning Comments: CM MET WITH PT IN ROOM TO DISCUSS DISCHARGE NEEDS AND PLANNING. PT REPORTS LIVING HOME ALONE, WITH ONE OF HER CHILDREN STAYING THE NIGHT WITH HER AT HOME. PT STATES SHE IS NOW IN REHAB AT [facility] AND PLANS TO RETURN THERE AT DISCHARGE TO CONTINUE HER REHAB SERVICES. PROVIDER LISTING PROVIDED, CHOICE FOR [facility] SIGENED. IMPORTANT MESSAGE FROM MEDICARE PROVIDED AND EXPLAINED. CM FAXED HOSPITAL UPDATE TO [facility] AT [phone]. FOR DISCHARGE, FAX DISCHARGE INFORMATION TO [facility] AT [phone]. CALL NURSE REPORT TO [facility] AT [phone]. [facility] TO ARRANGE VAN TRANSPORT. Club Manager: Tyshawn Flannery DCPIA - Discharge Planning Initial Assessment Updated by [email or web address]: Tyshawn Flannery on 06/06/18 4:08 pm * Is the patient Alert and Oriented? Yes * How many steps to enter\exit or inside your home? NONE * PCP DR. JIMENEZ * Pharmacy [address] * Preadmission Environment Alf Facility * Facility Name [facility] * ADLs Partial Dependent * Partial ADLs (Assistance needed) Ambulation Bathing Dressing Medication Management Transfers * Equipment Other * Other Equipment ALL MEDICAL EQUIPMENT PROVIDED BY FACILITY HOME: NEB, OXYGEN, ROLLING WALKER * List name and contact numbers for known caregivers / representatives who currently or will assist patient after discharge: [place] LIEBERMAN, R, * Verbal permission to speak to the caregivers and representatives has been obtained from the patient. Yes * Community resources currently utilized None * Please name any agencies selected above. NONE * Additional services required to return to the preadmission environment? No * Can the patient safely return to the preadmission environment? Yes * Has this patient been hospitalized within the prior 30 days at any hospital? No Last DP export: 06/07/18 7:58 a Patient Name: BRITNEY ROB Page [phone] at 1326 All edits/amendments must be made on the electronic document DICTATION DATE: 06/12/181325 MILITARY SOURCE OPERATIONS SPECIALIST: LAUREN 06/12/181325 RPT#: [id number] DC DATE: STATUS: ADM IN [facility] [address] [place] [address] END OF REPORT
--- NOTE | 2018-06-12 13:50 | MORECARE ---
CASE MANAGEMENT DISCHARGE SUMMARY PATIENT: BRITNEY ROB UNIT: [id number] ADM DATE: 06/04/18 AGE: 88 : 29 SEX: F ROOM/BED: D.5950 AUTHOR: PORTIA FULLER PHYSICIAN: REFERRING PHYSICIAN: ROCKY CHU MD DATE OF SERVICE: 06/12/18 Discharge Plan Patient Name: BRITNEY ROB Facility: [facility]:[place] : 1930 Planned Disposition: Residential Facility Anticipated Discharge Date: 06/12/18 Discharge Date: Expected LOS: 8 Initial Reviewer: [id number] Initial Review Date: 06/06/2018 Generated: 06/12/18 2:50 pm Comments DCP- Discharge Planning Updated by [email or web address]: Tyshawn Flannery on 06/12/18 12:[address] Patient Name: BRITNEY ROB Encounter No: [id number] : 1930 Primary Insurance: MEDICARE A & B Anticipated DC Date: 06-12-2018 Planned Disposition: Residential Facility External Planned Provider: [facility], MEDICARE REHAB BED DCP PLANNING NOTES: CM RECEIVED DISCHAGE ORDERS, CALLED AND SPOKE TO DAO FROM [facility] AT [phone], WHO ADVISED THEY WILL ACCEPT PT TODAY BACK TO SKILLED BED AND WILL ARRANGE VAN LASERIST TODAY. CM FAXED DISCHARGE INFORMATION TO [facility] AT [phone]. CALL NURSE REPORT TO [facility] AT [phone]. [facility] TO ARRANGE VAN TRANSPORT. Municipal Services Manager: Tyshawn Flannery DCP- Discharge Planning Updated by [id number]: Tyshawn Flannery on 06/07/18 7:[address] Patient Name: BRITNEY ROB Encounter No: [id number] : 1930 Primary Insurance: MEDICARE A & B Anticipated DC Date: Planned Disposition: Residential Facility External Planned Provider: [facility] N[facility]SING [facility], MEDICARE REHAB BED Discharge Planning Comments: CM SPOKE TO DAO FROM [facility] AT [phone], WHO ADVISED THEY RECEIVED THE UPDATE AND VERIFIED PT IS FROM SKILLED BED AND THEY PLAN TO RETURN PT TO SKILLED BED AT [facility]. FOR DISCHARGE, FAX DISCHARGE INFORMATION TO [facility] AT [phone]. CALL NURSE REPORT TO [facility] AT [phone]. [facility] TO ARRANGE VAN TRANSPORT. Municipal Services Manager: Tyshawn Flannery DCP- Discharge Planning Updated by [id number]: Tyshawn Flannery on 06/06/18 3:[address] Patient Name: BRITNEY ROB Admission Status: ER Accout number: [id number] Admission Date: 06-04-2018 : 1930 Admission Diagnosis: Attending: ROCKY CHU Current LOS: 2 Anticipated DC Date: Planned Disposition: Residential Facility Primary Insurance: MEDICARE A & B PLANNED EXTERNAL PROVIDER: [facility], MEDICARE REHAB BED Discharge Planning Comments: CM MET WITH PT IN ROOM TO DISCUSS DISCHARGE NEEDS AND PLANNING. PT REPORTS LIVING HOME ALONE, WITH ONE OF HER CHILDREN STAYING THE NIGHT WITH HER AT HOME. PT STATES SHE IS NOW IN REHAB AT [facility] AND PLANS TO RETURN THERE AT DISCHARGE TO CONTINUE HER REHAB SERVICES. PROVIDER LISTING PROVIDED, CHOICE FOR [facility] SIGENED. IMPORTANT MESSAGE FROM MEDICARE PROVIDED AND EXPLAINED. CM FAXED HOSPITAL UPDATE TO [facility] AT [phone]. FOR DISCHARGE, FAX DISCHARGE INFORMATION TO [facility] AT [phone]. CALL NURSE REPORT TO [facility] AT [phone]. [facility] TO ARRANGE VAN TRANSPORT. Municipal Services Manager: Tyshawn Flannery DCPIA - Discharge Planning Initial Assessment Updated by [id number]: Tyshawn Flannery on 06/06/18 4:08 pm * Is the patient Alert and Oriented? Yes * How many steps to enter\exit or inside your home? NONE * PCP DR. JIMENEZ * Pharmacy [address] * Preadmission Environment Residential Facility * Facility Name [facility] * ADLs Partial Dependent * Partial ADLs (Assistance needed) Ambulation Bathing Dressing Medication Management Transfers * Equipment Other * Other Equipment ALL MEDICAL EQUIPMENT PROVIDED BY FACILITY HOME: NEB, OXYGEN, ROLLING WALKER * List name and contact numbers for known caregivers / representatives who currently or will assist patient after discharge: OH LIEBREMAN DTR, * Verbal permission to speak to the caregivers and representatives has been obtained from the patient. Yes * Community resources currently utilized None * Please name any agencies selected above. NONE * Additional services required to return to the preadmission environment? No * Can the patient safely return to the preadmission environment? Yes * Has this patient been hospitalized within the prior 30 days at any hospital? No Coverage Notice Reviewer: [id number] Briana Villagran [place] Notice Issued Date-Time: 06/12/2018 13:35 Notice Type: IM Discharge Notice Notice Delivered To: Patient Relationship to Patient: Workers Compensation Manager Name: Delivery Method: HAND - Hand Delivered Korin Days: Prior Verbal Notification: Recipient Understood Notice: Yes Recipient Signature: Yes Med Rec Note Co-signed by Attending: Coverage Notice Comment: Last DP export: 06/12/18 12:26 p Patient Name: BRITNEY ROB Page [phone] at 1350 All edits/amendments must be made on the electronic document DICTATION DATE: 06/12/18 1350 ACTIVITY SPECIALIST: LAUREN 06/12/18 1350 RPT#: [id number] DC DATE: STATUS: ADM IN [facility] [address] [place] [address] END OF REPORT
== END 2018-06-12 16:53 | DRG 193 ==
LOC: D.ER 13:26 → D.EDHOLD 16:17 → D.M2 16:17
PROVIDERS: Family Medicine; ADMIT Internal Medicine Nephrology; ATTEND Internal Medicine Nephrology
DX: J18.9 Pneumonia, unspecified organism (principal); J96.21 Acute and chronic respiratory failure with hypoxia; K22.10 Ulcer of esophagus without bleeding; E44.0 Moderate protein-calorie malnutrition; J43.9 Emphysema, unspecified; E03.9 Hypothyroidism, unspecified; K29.70 Gastritis, unspecified, without bleeding; I71.4 Abdominal aortic aneurysm, without rupture; E87.6 Hypokalemia; E86.0 Dehydration; G47.00 Insomnia, unspecified; I48.91 Unspecified atrial fibrillation; I10 Essential (primary) hypertension; D64.9 Anemia, unspecified; Z68.20 Body mass index [BMI] 20.0-20.9, adult

== ENCOUNTER → 2018-07-12 10:38 | Outpatient (CLI) | payer MEDICARE, OTHER ==
[~2018-07-12] VITALS: Ht 165.1 cm; Wt 56.4 kg
[~2018-07-12 10:38] MED LIST changes: +ACETAMINOPHEN500 M1 PO; +GUAIFENESI100 MG/5 M PO; +ROCEPHIN; +ZITHROMAX250 MG PO
[2018-07-12 12:38] VITALS: BP 161/85; Ht 165.1 cm; Wt 56.4 kg
== END | disposition home or self-care (01) ==
LOC: D.OPS 10:00
PROVIDERS: ATTEND Family Medicine
DX: D64.9 Anemia, unspecified (principal)

== ENCOUNTER → 2018-07-22 10:19 | Outpatient (CLI) | payer MEDICARE, OTHER ==
[2018-07-12 12:38] VITALS: BMI 20.6
== END | disposition home or self-care (01) ==
LOC: D.HCCARDIO 10:19
PROVIDERS: ATTEND Internal Medicine Interventional Cardiology
DX: I25.10 Atherosclerotic heart disease of native coronary artery without angina pectoris (principal)

== ENCOUNTER → 2018-10-24 12:19 | Outpatient (CLI) | payer MEDICARE, OTHER, MEDICAID ==
[2018-07-12 12:38] VITALS: BMI 20.6
== END | disposition home or self-care (01) ==
LOC: D.RAD 12:19
PROVIDERS: ATTEND Family Medicine
DX: R13.12 Dysphagia, oropharyngeal phase (principal)

== ENCOUNTER 2018-11-26 21:52 | Inpatient (IN) | payer MEDICARE, OTHER, MEDICAID ==
[~2018-11-26] VITALS: Ht 165.1 cm; Wt 52.2 kg
[2018-11-26] MEDS ORDERED: ACIDOPHILUS-PE1 EACH PO (22:01)
[2018-11-26] MEDS ORDERED: VITAMIN B-1250 MCG PO (22:01)
[2018-11-26] MEDS ORDERED: MEGACE40 MG PO (22:02)
[2018-11-26] MEDS ORDERED: METAMUCIL PACKE1 PKT PO (22:02)
[2018-11-26] MEDS ORDERED: ZOLOFT50 MG PO (22:03)
[2018-11-26 22:33] LABS: BASOPHILS 0.1 % (0-2); EOSINOPHILS 0.1 % (0-7); HEMOGLOBIN 8.9 g/dL (12-16); IMMATURE GRANULOCYTES 0.5 % (0-5); LYMPHOCYTES 8.2 % (15-50); MCH 24.7 pg (26.0-34.0); MCV 91.4 fL (80.0-100.0); MEAN PLATELET VOLUME 8.9 fL (7.4-10.4); MONOCYTES 8.1 % (2-11); PLATELET COUNT 395 10x3/uL (130-400); RBC 3.61 10x6/uL (4.00-5.40); RDW 16.5 % (11.5-14.5); WBC 7.7 10x3/uL (4.8-10.8)
[2018-11-26 22:43] LABS: APTT 49.8 SECONDS (22.8-39.4); INR 1.88 (0.85-1.17); PROTIME 20.9 SECONDS (11.6-15.0)
[2018-11-26 22:49] LABS: ALKALINE PHOSPHATASE 86 U/L (46-116); ALT (SGPT) 16 U/L (10-68); BILIRUBIN - TOTAL 0.45 mg/dL (0.2-1.3); CALC OSMOLALITY 293 mosm/kg (275-300); CALCIUM 8.8 mg/dL (8.5-10.1); CARBON DIOXIDE 37.1 mmol/L (21.0-32.0); CHLORIDE - SERUM 103 mmol/L (98-107); CREATININE - SERUM 0.8 mg/dL (0.6-1.3); GLUCOSE 137 mg/dL (74-106); POTASSIUM - SERUM 4.4 mmol/L (3.5-5.1); PROTEIN - SERUM 6.9 g/dL (6.4-8.2); SODIUM 144 mmol/L (136-145); UREA NITROGEN 27 mg/dL (7-18); eGFR NON AFRICAN AMERICAN 72 mL/min (90-120)
[2018-11-26 23:00] LABS: CREATINE KINASE 25 UL (21-215)
[2018-11-26 23:03] LABS: TROPONIN-I < 0.017 ng/mL (0.000-0.060)
[2018-11-26 23:21] VITALS: BP 180/81
[2018-11-26 23:24] LABS: APPEARANCE CLEAR (CLEAR); BILIRUBIN NEGATIVE (NEGATIVE); COLOR YELLOW (YELLOW); GLUCOSE NEGATIVE (NEGATIVE); KETONE SMALL mg/dL (NEGATIVE); NITRITE NEGATIVE (NEGATIVE); PROTEIN 2+ mg/dL (NEGATIVE); SPECIFIC GRAVITY 1.025 (1.005-1.020); UROBILINOGEN NORMAL (NORMAL)
[2018-11-26 23:26] LABS: BACTERIA FEW /hpf (NEGATIVE); EPITHELIAL CELLS 0-5 /hpf (0-5); RED CELLS - URINE 0-5 /hpf (0-5); WHITE CELLS - URINE 0-5 /hpf (NEGATIVE)
[2018-11-26 23:28] VITALS: BP 180/81
[2018-11-27] VITALS (11 sets, daily range): BP systolic 104–196; BP diastolic 63–113
--- NOTE | 2018-11-27 01:18 | NUR ---
PT BACK FROM ORDERED CT AT THIS TIME.
--- NOTE | 2018-11-27 01:20 | NUR ---
WHILE ADMINISTERING ORDERED MEDICATION, THIS NURSE NOTICED PT SPO2 88%, NC NOTED TO BE ATTATCHED TO [place], BUT NOT TURNED ON TO 3 LITERS/MIN. THIS NURSE PUT PT O2 ON 3L/MIN NC. SPO2 97%, BREATHING 22/MIN.
[2018-11-27] MEDS ORDERED: ROCEPHIN 1 GM/D51 G1 IM (03:24)
[2018-11-27] MEDS ORDERED: ZOFRAN ODT4 MG/UDTAB PO (03:29)
[2018-11-27 05:43] LABS: BASOPHILS 0 % (0-2); EOSINOPHILS 0 % (0-7); HEMATOCRIT 30.4 % (36.0-48.0); HEMOGLOBIN 8.2 g/dL (12-16); IMMATURE GRANULOCYTES 0.3 % (0-5); LYMPHOCYTES 5.9 % (15-50); MCH 24.5 pg (26.0-34.0); MCV 90.7 fL (80.0-100.0); MONOCYTES 3.1 % (2-11); NEUTROPHILS 90.7 % (40-80); RBC 3.35 10x6/uL (4.00-5.40); RDW 16.5 % (11.5-14.5); WBC 6.4 10x3/uL (4.8-10.8)
[2018-11-27 06:12] LABS: ALBUMIN 2.8 g/dL (3.4-5.0); ALKALINE PHOSPHATASE 77 U/L (46-116); ALT (SGPT) 18 U/L (10-68); BILIRUBIN - TOTAL 0.35 mg/dL (0.2-1.3); CALC OSMOLALITY 291 mosm/kg (275-300); CALCIUM 8.6 mg/dL (8.5-10.1); CARBON DIOXIDE 36.3 mmol/L (21.0-32.0); CHLORIDE - SERUM 102 mmol/L (98-107); CREATININE - SERUM 0.7 mg/dL (0.6-1.3); GLUCOSE 138 mg/dL (74-106); POTASSIUM - SERUM 4.5 mmol/L (3.5-5.1); PROTEIN - SERUM 6.1 g/dL (6.4-8.2); SODIUM 143 mmol/L (136-145); UREA NITROGEN 27 mg/dL (7-18); eGFR NON AFRICAN AMERICAN 83 mL/min (90-120)
[2018-11-27 06:14] LABS: PLATELET COUNT 313 10x3/uL (130-400)
--- NOTE | 2018-11-27 07:15 | NUR ---
PT RESTING IN BED WITH EYES CLOSED. RESP EVEN AND UNLABORED. O2 @ 3L NC IN PLACE. BRUISING NOTED TO BILATERAL UPPER EXT. SALINE LOC TO RIGHT HAND, SITE WITHOUT REDNESS. DENIES PAIN AT THIS TIME. CL WITHIN REACH. ENCOURAGED TO CALL WITH NEEDS. CONTINUE POC
--- NOTE | 2018-11-27 16:40 | MORECARE ---
CASE MANAGEMENT DISCHARGE SUMMARY PATIENT: BRITNEY ROB UNIT: [id number] ADM DATE: 11/27/18 AGE: 88 : 29 SEX: F ROOM/BED: D.2204 AUTHOR: PORTIA FULLER PHYSICIAN: REFERRING PHYSICIAN: TIFFANIE BRAVO MD DATE OF SERVICE: 11/27/18 Discharge Plan Patient Name: BRITNEY ROB Facility: [facility]:[place] : 1930 Planned Disposition: Nursing Facility [place] Cert Anticipated Discharge Date: Discharge Date: Expected LOS: Initial Reviewer: [id number] Initial Review Date: 11/27/2018 Generated: 11/27/18 5:39 pm DCPIA - Discharge Planning Initial Assessment Updated by [email or web address]: Chelita Zheng on 11/27/18 4:36 pm * Is the patient Alert and Oriented? Yes * How many steps to enter\exit or inside your home? * PCP LAWRENCE/LUCY * Pharmacy [facility] * Preadmission Environment [employer] * Facility Name [facility] * ADLs Partial Dependent * Partial ADLs (Assistance needed) Bathing Dressing Medication Management Toileting * Other Equipment HAS ALL EQUIPMENT SHE NEEDS * List name and contact numbers for known caregivers / representatives who currently or will assist patient after discharge: GILMA LIEBERMAN (DAUGHTER) [phone] * Verbal permission to speak to the caregivers and representatives has been obtained from the patient. Yes * Community resources currently utilized None * Additional services required to return to the preadmission environment? No * Can the patient safely return to the preadmission environment? Yes * Has this patient been hospitalized within the prior 30 days at any hospital? No Patient Name: BRITNEY ROB Page [phone] at 1640 All edits/amendments must be made on the electronic document DICTATION DATE: 11/27/181638 MELANGEUR OPERATOR: LAUREN 11/27/181638 RPT#: [id number] DC DATE: STATUS: ADM IN [facility] [address] [place] [address] END OF REPORT
--- NOTE | 2018-11-27 16:49 | MORECARE ---
CASE MANAGEMENT DISCHARGE SUMMARY PATIENT: BRITNEY ROB UNIT: [id number] ADM DATE: 11/27/18 AGE: 88 : 29 SEX: F ROOM/BED: D.2204 AUTHOR: PORTIA FULLER PHYSICIAN: REFERRING PHYSICIAN: TIFFANIE BRAVO MD DATE OF SERVICE: 11/27/18 Discharge Plan Patient Name: BRITNEY ROB Facility: [facility]:[place] : 1930 Planned Disposition: Nursing Facility [facility] Cert Anticipated Discharge Date: Discharge Date: Expected LOS: Initial Reviewer: [email or web address] Initial Review Date: 11/27/2018 Generated: 11/27/18 5:48 pm Comments DCP- Discharge Planning Updated by [email or web address]: Chelita Zheng on 11/27/18 3:[address] Patient Name: BRITNEY ROB Admission Status: ER Accout number: [id number] Admission Date: 11-27-2018 : 1930 Admission Diagnosis: Attending: TIFFANIE BRAVO Current LOS: 1 Anticipated DC Date: Planned Disposition: Nursing Facility [facility] Cert Primary Insurance: MEDICARE A & B Discharge Planning Comments: CM met with patient to complete initial dc planning assessment. CM educated patient on the CM role and verbal consent given by patient to complete assessment. 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 At discharge patient plans to return to [facility] and feels this is a safe discharge. Patient has all the help she needs and DME. Home O2, nebulizer. She uses a walker. Patient denied known discharge needs at this time. CM will continue to follow and will assist as needed with dc plans/needs. Ict Support Technicians: Chelita Zheng DCPIA - Discharge Planning Initial Assessment Updated by [email or web address]: Chelita Zheng on 11/27/18 4:36 pm * Is the patient Alert and Oriented? Yes * How many steps to enter\exit or inside your home? * PCP LAWRENCE/LUCY * Pharmacy [facility] * Preadmission Environment [facility] * Facility Name [facility] * ADLs Partial Dependent * Partial ADLs (Assistance needed) Bathing Dressing Medication Management Toileting * Other Equipment HAS ALL EQUIPMENT SHE NEEDS * List name and contact numbers for known caregivers / representatives who currently or will assist patient after discharge: GILMA LIEBERMAN (DAUGHTER) [phone] * Verbal permission to speak to the caregivers and representatives has been obtained from the patient. Yes * Community resources currently utilized None * Additional services required to return to the preadmission environment? No * Can the patient safely return to the preadmission environment? Yes * Has this patient been hospitalized within the prior 30 days at any hospital? No Last DP export: 11/27/18 3:40 p Patient Name: BRITNEY ROB Page [phone] at 1649 All edits/amendments must be made on the electronic document DICTATION DATE: 11/27/181647 WILLOW ANALYST: LAUREN 11/27/181647 RPT#: [id number] DC DATE: STATUS: ADM IN [facility] [address] [place] [address] END OF REPORT
--- NOTE | 2018-11-27 22:20 | NUR ---
CONFUSED WITH NO SIGNS OF DISTRESS. IV TO THE RT HAND WITH NO REDNESS OR SWELLING. NC ON @3L AND REFUSES BIPAP. DROPLET ISOLATION IN PLACE AND SOLA ALARM ON. SON AT BEDSIDE. NO OTHER NEEDS NOTED AT THIS TIME. CONTINUE WITH PLAN OF CARE.
--- NOTE | 2018-11-28 00:30 | NUR ---
PT REPORT PAIN UPON FLUSHING IN IV TO THE RT HAND. DC IV WITH CATH INTACT. RESITED IV TO THE LT UPPER ARM. DENIES NO OTHER NEEDS AT THIS TIME. CONTINUE WITH PLAN OF CARE.
[2018-11-28 00:51] VITALS: BP 140/80
[2018-11-28 05:06] VITALS: BP 81/62
--- NOTE | 2018-11-28 07:40 | NUR ---
PT RESTING IN BED WITH EYES CLOSED. OPENS EYES TO NAME BEING CALLED. PT IS ALERT TO PERSON ONLY AT THIS TIME. FOLLOWS COMMANDS. DENIES PAIN AT THIS TIME. O2 @ 2L NC IN PLACE. SALINE LOC TO LEFT UPPER ARM, SITE WITHOUT REDNESS OR EDEMA. DENIES FURTHER NEEDS AT THIS TIME. CL WITHIN REACH. ENCOURAGED TO CALL WITH NEEDS. CONTINUE POC
[2018-11-28 07:53] VITALS: BP 168/78
[2018-11-28 10:26] LABS: BASOPHILS 0 % (0-2); EOSINOPHILS 0 % (0-7); HEMATOCRIT 32.2 % (36.0-48.0); HEMOGLOBIN 9.1 g/dL (12-16); IMMATURE GRANULOCYTES 0.2 % (0-5); LYMPHOCYTES 5.1 % (15-50); MCH 24.9 pg (26.0-34.0); MCHC 28.3 g/dL (31.0-37.0); MONOCYTES 4.3 % (2-11); NEUTROPHILS 90.4 % (40-80); PLATELET COUNT 364 10x3/uL (130-400); RBC 3.66 10x6/uL (4.00-5.40); RDW 17.3 % (11.5-14.5)
[2018-11-28 10:28] LABS: WBC 8.4 10x3/uL (4.8-10.8)
[2018-11-28 10:54] LABS: ANION GAP 8.4 mmol/L (8-16); CALCIUM 9.1 mg/dL (8.5-10.1); CARBON DIOXIDE 37.2 mmol/L (21.0-32.0); CREATININE - SERUM 0.8 mg/dL (0.6-1.3); POTASSIUM - SERUM 4.6 mmol/L (3.5-5.1)
[2018-11-28 12:23] VITALS: BP 121/78
[2018-11-28 13:51] VITALS: BMI 19.1
[2018-11-28 17:01] VITALS: BP 181/80
[2018-11-28 20:00] VITALS: BP 158/83
--- NOTE | 2018-11-28 23:24 | NUR ---
PT ATE PART OF SANDWICH TRAY AND BEGAN VOMITING AND C/O ABDOMINAL PAIN. GAVE ZOFRAN 4MG IV PUSH AND TYLENOL 1000 MG PO. NO OTHER NEEDS. WILL REASSESS AND CONTINUE TO MONITOR.
[2018-11-29] VITALS: BP 219/102
[2018-11-29 04:00] VITALS: BP 194/95
[2018-11-29 07:45] LABS: ANION GAP 10.1 mmol/L (8-16); CALCIUM 8.7 mg/dL (8.5-10.1); CREATININE - SERUM 0.9 mg/dL (0.6-1.3); POTASSIUM - SERUM 4.1 mmol/L (3.5-5.1)
[2018-11-29 07:48] LABS: BASOPHILS 0 % (0-2); EOSINOPHILS 0 % (0-7); HEMATOCRIT 30.2 % (36.0-48.0); HEMOGLOBIN 8.5 g/dL (12-16); IMMATURE GRANULOCYTES 0.1 % (0-5); LYMPHOCYTES 4.9 % (15-50); MCH 24.7 pg (26.0-34.0); MCHC 28.1 g/dL (31.0-37.0); MCV 87.8 fL (80.0-100.0); MEAN PLATELET VOLUME 9.1 fL (7.4-10.4); MONOCYTES 6.4 % (2-11); NEUTROPHILS 88.6 % (40-80); PLATELET COUNT 343 10x3/uL (130-400); RBC 3.44 10x6/uL (4.00-5.40); RDW 17.4 % (11.5-14.5); WBC 7.3 10x3/uL (4.8-10.8)
[2018-11-29 08:15] VITALS: BP 128/74
--- NOTE | 2018-11-29 08:30 | NUR ---
PT RESTING IN BED. RESP SHALLOW. O2@2L NC IN PLACE. PT DENIES PAIN AT THIS TIME. SALINE LOC TO LEFT UPPER ARM. SITE WITHOUT REDNESS OR EDEMA. ASSISTED PT TO BR AT THIS TIME. AMBULATES WELL WITH ASSIST. ASSITED BACK TO BED. PT DENIES FURTHER NEEDS AT THIS TIME. CL WITHIN REACH. ENCOURAGED TO CALL WITH NEEDS. CONTINUE POC
[2018-11-29 13:13] VITALS: BP 153/79
[2018-11-29 16:05] VITALS: BP 143/69
[2018-11-29 20:00] VITALS: BP 145/77
[2018-11-30 04:00] VITALS: BP 179/98
[2018-11-30 09:18] VITALS: BP 169/69
--- NOTE | 2018-11-30 09:56 | NUR ---
PT ABLE TO ANSWER ALL ORIENTATION QUESTIONS, BUT PT SEEMS CONFUSED. BREATH SOUNDS DIMINISHED TO LLL, 2L O2 PER NC. IV TO LEFT UPPER ARM, PATENT, DRESSING CDI. BED LOW, CALL LIGHT IN REACH. NO OTHER NEEDS AT THIS TIME.
[2018-11-30 13:33] VITALS: BP 151/78
[2018-11-30 18:07] VITALS: BP 146/88
[2018-11-30 21:04] VITALS: BP 160/95
[2018-12-01 00:57] VITALS: BP 176/89
[2018-12-01 04:15] VITALS: BP 191/92
[2018-12-01 08:54] VITALS: BP 142/71
[2018-12-01 13:13] VITALS: BP 163/85
[2018-12-01 17:27] LABS: APPEARANCE CLEAR (CLEAR); COLOR STRAW (YELLOW)
[2018-12-01 17:28] LABS: BILIRUBIN NEGATIVE (NEGATIVE); GLUCOSE NEGATIVE (NEGATIVE); KETONE NEGATIVE (NEGATIVE); NITRITE NEGATIVE (NEGATIVE); PROTEIN TRACE mg/dL (NEGATIVE); SPECIFIC GRAVITY 1.005 (1.005-1.020); UROBILINOGEN NORMAL (NORMAL)
[2018-12-01 20:31] VITALS: BP 168/89
[2018-12-02 00:57] VITALS: BP 134/84
[2018-12-02 05:08] VITALS: BP 175/99
[2018-12-02 06:45] LABS: BASOPHILS 0 % (0-2); EOSINOPHILS 0.1 % (0-7); HEMATOCRIT 32.7 % (36.0-48.0); HEMOGLOBIN 9.3 g/dL (12-16); IMMATURE GRANULOCYTES 0.3 % (0-5); LYMPHOCYTES 8.3 % (15-50); MCH 24.3 pg (26.0-34.0); MCHC 28.4 g/dL (31.0-37.0); MCV 85.4 fL (80.0-100.0); MONOCYTES 13.7 % (2-11); NEUTROPHILS 77.6 % (40-80); PLATELET COUNT 307 10x3/uL (130-400); RBC 3.83 10x6/uL (4.00-5.40); RDW 17.3 % (11.5-14.5); WBC 9.2 10x3/uL (4.8-10.8)
[2018-12-02 07:19] LABS: ALBUMIN 2.6 g/dL (3.4-5.0); ANION GAP 6.8 mmol/L (8-16); BILIRUBIN - TOTAL 0.69 mg/dL (0.2-1.3); CALCIUM 8.4 mg/dL (8.5-10.1); CREATININE - SERUM 0.8 mg/dL (0.6-1.3); POTASSIUM - SERUM 3.8 mmol/L (3.5-5.1); PROTEIN - SERUM 5.6 g/dL (6.4-8.2); VANCOMYCIN - RANDOM 12.6 ug/mL (10.0-20.0)
[2018-12-02 08:24] VITALS: BP 133/85
--- NOTE | 2018-12-02 13:29 | NUR ---
Nutrition follow-up: Pt with very poor po intake of a regular diet; continues to c/o nausea, vomiting Labs reviewed Wt: 114# Pt in isolation protocol Due to pt with very poor po intake, recommend nutrition support - PEG tube vs NGT placement and TF if medically feasible. RDN following.
[2018-12-02 13:33] VITALS: BP 154/135
[2018-12-02 16:07] VITALS: BP 136/60
[2018-12-02 19:50] VITALS: BP 182/93
[2018-12-03 00:40] VITALS: BP 190/87
--- NOTE | 2018-12-03 03:37 | NUR ---
I have reviewed this patient and I concur with the Shift Assessment completed by the Licensed Practical Nurse today this shift.
[2018-12-03 04:00] VITALS: BP 186/90
[2018-12-03 08:29] VITALS: BP 208/98
--- NOTE | 2018-12-03 08:53 | NUR ---
PT BP IS 200/90'S ADMINISTERED PO BP MEDICATION, PT NPO FOR U/S OF GALLBLADDER, CONTINUE WITH PLAN OF CARE. ADELE BROWERN
--- NOTE | 2018-12-03 11:37 | NUR ---
I have reviewed this patient and I concur with the Shift Assessment completed by the Licensed Practical Nurse today this shift.
--- NOTE | 2018-12-03 11:53 | NUR ---
PT IS VERY DIFFERENT TODAY PER DAUGHTER, SHE IS VERY ANTSY WILL NOT TELL US WHAT IS WRONG, SHE DOES NOT RECOGNIZE DAUGHTER, CALLED DR BRAVO IN REGARDS TO PT BEHAVIOR ADVISED FOR US TO CONTINUE TO MONITOR PT. PT NEEDS SOMETHING FOR BEING RESTLESS WILL CALL DR BRAVO BACK
--- NOTE | 2018-12-03 12:07 | NUR ---
PT IS COMBATIVE WANTING TO CLIMB OUT OF BED, ADMINISTERED ATIVAN PRN FOR AGITATION, DAUGHTER AT BEDSIDE
[2018-12-03 12:38] VITALS: BP 179/117
[2018-12-03 21:27] VITALS: BP 129/63
--- NOTE | 2018-12-03 23:00 | NUR ---
PT IS NOT ALERT. VERY LETHARGIC. RESPONDS TO PAINFUL STIMULATION. HAS BEGUN TO RESPOND "OKAY," AND "YEAH," AND "NO," TO QUESTIONS, BUT EYES ARE STILL CLOSED. TELEMETRY IS RUNNING 77SR. IV TO LEFT WRIST INFILTRATED, DC'D WITH CATH INTACT, RN RESITED 24G TO RIGHT WRIST, WILL CONTINUE TO MONITOR.
--- NOTE | 2018-12-04 02:40 | NUR ---
I have reviewed this patient and I concur with the Shift Assessment completed by the Licensed Practical Nurse today this shift.
[2018-12-04 05:15] VITALS: BP 155/90
[2018-12-04 05:30] LABS: BASOPHILS 0 % (0-2); EOSINOPHILS 0.2 % (0-7); HEMATOCRIT 35.2 % (36.0-48.0); HEMOGLOBIN 9.9 g/dL (12-16); IMMATURE GRANULOCYTES 0.3 % (0-5); LYMPHOCYTES 10.1 % (15-50); MCH 24.3 pg (26.0-34.0); MCHC 28.1 g/dL (31.0-37.0); MCV 86.5 fL (80.0-100.0); MEAN PLATELET VOLUME 9.3 fL (7.4-10.4); MONOCYTES 12.1 % (2-11); NEUTROPHILS 77.3 % (40-80); RBC 4.07 10x6/uL (4.00-5.40); RDW 17.6 % (11.5-14.5)
[2018-12-04 05:41] LABS: PLATELET COUNT 386 10x3/uL (130-400)
[2018-12-04 06:14] LABS: ALBUMIN 2.5 g/dL (3.4-5.0); ANION GAP 5.8 mmol/L (8-16); BILIRUBIN - TOTAL 0.62 mg/dL (0.2-1.3); CALCIUM 8.2 mg/dL (8.5-10.1); CREATININE - SERUM 0.8 mg/dL (0.6-1.3); POTASSIUM - SERUM 3.8 mmol/L (3.5-5.1); PROTEIN - SERUM 5.2 g/dL (6.4-8.2)
--- NOTE | 2018-12-04 07:50 | NUR ---
PT SITTING UP IN BED. RESP EVEN AND UNLABORED. O2 @ 4L NC IN PLACE. PT DENIES PAIN. OCCASIONAL COUGH NOTED. IV TO RIGHT FOREARM SALINE LOC'D, SITE WITHOUT REDNESS OR EDEMA. PT DENIES PAIN AT THIS TIME. DENIES FURTHER NEEDS. CL WITHIN REACH. ENCOURAGED TO CALL WITH NEEDS. CONTINUE POC
--- NOTE | 2018-12-04 08:20 | NUR ---
PT RESTING QUIETLY IN BED, RESP EVEN AND UNLABORED. O2 @ 2L NC IN PLACE. PT VERY GROGGY, BUT DOES AROUSE TO NAME BEING CALLED. PT VOICES NEED FOR BED THOMAS. ASSISTED PT ON BED THOMAS MIKAEL WELL VOIDING YELLOW URINE. IV TO RIGHT WRIST WITH D5NS @ 75ML/HR, ZOFRAN 4.7ML/HR BOTH INFUSING VIA PUMP. SITE WITHOUT EDEMA. PT DENIES PAIN AT THIS TIME. DENIES FURTHER NEEDS. CL WITHIN REACH. ENCOURAGED TO CALL WITH NEEDS. CONTINUE POC
[2018-12-04 09:04] VITALS: BP 181/115
[2018-12-04 09:30] VITALS: BP 160/82
[2018-12-04 12:46] VITALS: BP 138/84
--- NOTE | 2018-12-04 15:55 | NUR ---
PT VOIDED 30ML URINE. BLADDER SCAN PER MD ORDERS PERFORMED. 717ML URINE SCANNED AT THIS TIME. CONTACTED DR. BRAVO. ORDERS FOR F/C FOR URINARY RETENTION RECIEVED WITH UA WITH CULTURE. F/C PLACED PER STERILE TECHNIQUE, 800ML RETURNED YELLOW WITH SEDIMENT. UA OBTAINED AND TAKEN TO LAB
[2018-12-04 16:38] VITALS: BP 108/72
[2018-12-04 17:48] LABS: APPEARANCE CLEAR (CLEAR); COLOR YELLOW (YELLOW)
[2018-12-04 17:49] LABS: BILIRUBIN NEGATIVE (NEGATIVE); GLUCOSE NEGATIVE (NEGATIVE); KETONE NEGATIVE (NEGATIVE); NITRITE NEGATIVE (NEGATIVE); PROTEIN NEGATIVE (NEGATIVE); UROBILINOGEN NORMAL (NORMAL)
[2018-12-04 17:50] LABS: BACTERIA MODERATE /hpf (NEGATIVE); EPITHELIAL CELLS OCC /hpf (0-5); WHITE CELLS - URINE 0-5 /hpf (NEGATIVE)
[2018-12-04 20:00] VITALS: BP 149/91
[2018-12-05] VITALS: BP 152/76
[2018-12-05 04:00] VITALS: BP 144/82
[2018-12-05 08:19] LABS: BASOPHILS 0 % (0-2); HEMATOCRIT 35.1 % (36.0-48.0); IMMATURE GRANULOCYTES 0.5 % (0-5); LYMPHOCYTES 12.5 % (15-50); MCH 24.9 pg (26.0-34.0); MCHC 28.5 g/dL (31.0-37.0); MCV 87.5 fL (80.0-100.0); MONOCYTES 13.1 % (2-11); NEUTROPHILS 70.9 % (40-80); PLATELET COUNT 387 10x3/uL (130-400); RBC 4.01 10x6/uL (4.00-5.40); RDW 17.9 % (11.5-14.5); WBC 10.8 10x3/uL (4.8-10.8)
[2018-12-05 08:28] LABS: CALC OSMOLALITY 285 mosm/kg (275-300); CALCIUM 8.2 mg/dL (8.5-10.1); CARBON DIOXIDE 38.4 mmol/L (21.0-32.0); CHLORIDE - SERUM 106 mmol/L (98-107); CREATININE - SERUM 0.7 mg/dL (0.6-1.3); GLUCOSE 100 mg/dL (74-106); POTASSIUM - SERUM 3.5 mmol/L (3.5-5.1); SODIUM 143 mmol/L (136-145); UREA NITROGEN 14 mg/dL (7-18); eGFR NON AFRICAN AMERICAN 83 mL/min (90-120)
[2018-12-05 09:48] VITALS: BP 181/83
--- NOTE | 2018-12-05 09:52 | NUR ---
PATIENT HAD A FULL CONTAINER OF PUDDING AFTER I CRUSHED HER MEDS. CL IN REACH. POSSE ALARM ON. SLEEPING ON BACK. NO FURTHER NEEDS AT THIS TIME. QUINNTM.
[2018-12-05 12:29] VITALS: BP 136/73
--- NOTE | 2018-12-05 12:47 | NUR ---
Nutrition follow-up: Diet: regular Pt continues with very poor po intake; nausea, vomiting much better per physician. Pt remains in isolation. Labs reviewed Pt gets SOB easily D5NS @ 75 ml/hr No new wt to assess Recommend a trial of an appetite stimulant due to pts continued poor po intake. May also need to consider PEG tube vs NGT placment and TF started due to poor intake. RDN following.
--- NOTE | 2018-12-05 14:30 | NUR ---
PATIENT FAMILY LEFT. CL IN REACH. PATIENT SLEEPING. NO NEEDS AT THIS TIME. WCTM
[2018-12-05 16:23] VITALS: BP 149/81
--- NOTE | 2018-12-05 19:20 | NUR ---
FAMILY WOULD LIKE DR NEWTON ON THE CASE ABOUT THE UNCONTROLLED AFIB MOMENTS WHILE SHE WAS HERE IN THE HOSPITAL.
[2018-12-05 20:00] VITALS: BP 125/59
[2018-12-06 04:00] VITALS: BP 104/56
[2018-12-06 08:35] VITALS: BP 197/93
[2018-12-06 11:09] VITALS: Ht 165.1 cm; Wt 52.2 kg
[2018-12-06 13:14] VITALS: BP 153/71
[2018-12-06 16:31] VITALS: BP 185/91
[2018-12-06 19:44] VITALS: BP 147/84
--- NOTE | 2018-12-06 19:47 | NUR ---
Patient in bed confused. O2 at 2l via n/c. right wrist IV with D5 W @75. F/C in place and paten. bed alarm in place. Remains on droplet isolation. Call light and water in reach.
[2018-12-06 23:41] VITALS: BP 161/83
[2018-12-07 05:25] VITALS: BP 158/80
[2018-12-07 06:05] LABS: BASOPHILS 0 % (0-2); EOSINOPHILS 3.4 % (0-7); HEMATOCRIT 35.9 % (36.0-48.0); HEMOGLOBIN 10.2 g/dL (12-16); IMMATURE GRANULOCYTES 0.3 % (0-5); LYMPHOCYTES 11.1 % (15-50); MCH 24.6 pg (26.0-34.0); MCHC 28.4 g/dL (31.0-37.0); MCV 86.5 fL (80.0-100.0); MEAN PLATELET VOLUME 9.3 fL (7.4-10.4); MONOCYTES 12.5 % (2-11); NEUTROPHILS 72.7 % (40-80); PLATELET COUNT 425 10x3/uL (130-400); RBC 4.15 10x6/uL (4.00-5.40); WBC 10.8 10x3/uL (4.8-10.8)
[2018-12-07 06:15] LABS: CALC OSMOLALITY 275 mosm/kg (275-300); CALCIUM 8.1 mg/dL (8.5-10.1); CARBON DIOXIDE 33.8 mmol/L (21.0-32.0); CHLORIDE - SERUM 103 mmol/L (98-107); CREATININE - SERUM 0.6 mg/dL (0.6-1.3); GLUCOSE 103 mg/dL (74-106); SODIUM 139 mmol/L (136-145); eGFR NON AFRICAN AMERICAN > 90 mL/min (90-120)
[2018-12-07 06:16] LABS: UREA NITROGEN 7 mg/dL (7-18)
--- NOTE | 2018-12-07 07:15 | NUR ---
RESTING IN BED, EYES OPEN. CONFUSED AT TIMES. ON DROPLET PRECAUTIONS. H[place]BROOK CATHETER PRESENT. NO C/O PAIN. NO S/S OF ACUTE DISTRESS NOTED. ON 2L O2, NC. IV TO RIGHT FOREARM, D5W @ 75ML/HR. SITE PATENT WITHOUT REDNESS OR SWELLING. MEDS IN PUDDING, VANILLA PUDDING ONLY. TELEMETRY 69 SR. DENIES ANY NEEDS AT THIS TIME. CALL LIGHT IN REACH. WILL CONTINUE TO MONITOR.
[2018-12-07 08:40] VITALS: BP 144/87
[2018-12-07 15:04] VITALS: BP 130/71
[2018-12-07 16:38] VITALS: BP 134/79
--- NOTE | 2018-12-07 18:43 | NUR ---
RESTING IN BED. DENIES NEEDS. FALL PRECUATIONS IN PLACE. BED LOW. CALL NAIR AND PERSONAL ITEMS IN REACH.
[2018-12-07 19:00] VITALS: BP 179/88
--- NOTE | 2018-12-07 20:49 | NUR ---
PATIENT ALERT AND CONFUSED WITH FAMILY AT BEDSIDE. O2 AT 2L VIA N/C. IV TO RIGHT FA WITH D5W AT [address] , IV PATIEN WITH NO REDNESS NOTED, DENIES PAIN AT SITE. F/C IN PLACE AND PATEN WITH CLODY YELLOW URIN TO BAG. DENIES PAIN AT THIS TOME STATED NO NEEDS. POSIE ALARM IN PLACE AND ON WITH ALL FALL PERCAUTIONS IN PLACE. WATER AND CALL LIGHT IN REACH BED LOW.
[2018-12-08] VITALS: BP 188/83
[2018-12-08 04:00] VITALS: BP 164/83
--- NOTE | 2018-12-08 07:30 | NUR ---
PT RESTING IN BED WITH EYES OPEN, ALERT W/SOME CONFUSION. STATES SHE HAS LOST SOME ITEMS THAT ARE SITTING RIGHT BESIDE HER. IV LOCATED TO RIGHT FOREARM CURRENTLY RUNNING D5W @ 75ML/HR. CURRENTLY RCVING 2L VIA NC. NO S/S OF DISTRESS AT THIS TIME AND DENIES ANY NEEDS, WILL CONT TO MONITOR.
[2018-12-08 08:02] VITALS: BP 121/74
[2018-12-08 11:56] VITALS: BP 144/79
[2018-12-08] MEDS ORDERED: Xopenex 0.63 MG INH INH (12:24)
[2018-12-08] MEDS ORDERED: ATROVENT 0.02%2.5 ML UPD (12:24)
[2018-12-08] MEDS ORDERED: HYDRALAZINE HCL10 MG PO (12:25)
[2018-12-08] MEDS ORDERED: LISINOPRIL10 MG PO (12:25)
[2018-12-08] MEDS ORDERED: BETAPACE 120 M120 MG PO (12:25)
[2018-12-08] MEDS ORDERED: LINZESS145 MCG PO (12:26)
--- NOTE | 2018-12-08 13:14 | NUR ---
RX FOR XOPONEX DID NOT E SCRIBE. CALL[facility] TO [facility], SPOKE WITH JULIO, PHARMACIST.
--- NOTE | 2018-12-08 13:29 | MORECARE ---
CASE MANAGEMENT DISCHARGE SUMMARY PATIENT: BRITNEY ROB UNIT: [id number] ADM DATE: 11/27/18 AGE: 88 : 29 SEX: F ROOM/BED: D.2204 AUTHOR: ALINADOC PHYSICIAN: REFERRING PHYSICIAN: TIFFANIE BRAVO MD DATE OF SERVICE: 12/08/18 Discharge Plan Patient Name: BRITNEY ROB Facility: [facility]:[place] : 1930 Planned Disposition: Nursing Facility [facility] Cert Anticipated Discharge Date: 12/08/18 Discharge Date: Expected LOS: 11 Initial Reviewer: [id number] Initial Review Date: 11/27/2018 Generated: 12/08/18 2:28 pm DCP- Discharge Planning Updated by [email or web address]: Chelita Zheng on 11/27/18 3:[address] Patient Name: BRITNEY ROB Admission Status: ER Accout number: [id number] Admission Date: 11-27-2018 : 1930 Admission Diagnosis: Attending: TIFFANIE BRAVO Current LOS: 1 Anticipated DC Date: Planned Disposition: Nursing Facility [facility] Cert Primary Insurance: MEDICARE A & B Discharge Planning Comments: CM met with patient to complete initial dc planning assessment. CM educated patient on the CM role and verbal consent given by patient to complete assessment. 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 At discharge patient plans to return to [place] and feels this is a safe discharge. Patient has all the help she needs and DME. Home O2, nebulizer. She uses a walker. Patient denied known discharge needs at this time. CM will continue to follow and will assist as needed with dc plans/needs. Qa Tester: Chelita Zheng DCPIA - Discharge Planning Initial Assessment Updated by [id number]: Chelita Zheng on 11/27/18 4:36 pm * Is the patient Alert and Oriented? Yes * How many steps to enter\exit or inside your home? * PCP LA[facility]ENCE/LUCY * Pharmacy [facility] * Preadmission Environment [facility] * Facility Name [facility] * ADLs Partial Dependent * Partial ADLs (Assistance needed) Bathing Dressing Medication Management Toileting * Other Equipment HAS ALL EQUIPMENT SHE NEEDS * List name and contact numbers for known caregivers / representatives who currently or will assist patient after discharge: GILMA LIEBERMAN (DAUGHTER) [phone] * Verbal permission to speak to the caregivers and representatives has been obtained from the patient. Yes * Community resources currently utilized None * Additional services required to return to the preadmission environment? No * Can the patient safely return to the preadmission environment? Yes * Has this patient been hospitalized within the prior 30 days at any hospital? No Coverage Notice Reviewer: [id number] Briana Zheng Notice Issued Date-Time: 11/27/2018 16:30 Notice Type: Patient Choice Letter Notice Delivered To: Patient Relationship to Patient: Automatic Brine Mixer Operator Name: Delivery Method: HAND - Hand Delivered Korin Days: Prior Verbal Notification: Recipient Understood Notice: Yes Recipient Signature: Yes Med Rec Note Co-signed by Attending: Coverage Notice Comment: [facility] patient Reviewer: [id number] - Nettie Alcantara Notice Issued Date-Time: 12/08/2018 13:26 Notice Type: IM Discharge Notice Notice Delivered To: Patient Relationship to Patient: Daughter Automatic Brine Mixer Operator Name: Gilma Lieberman Delivery Method: - Korin Days: Prior Verbal Notification: Recipient Understood Notice: Recipient Signature: Med Rec Note Co-signed by Attending: Coverage Notice Comment: Last DP export: 11/27/18 3:49 p Patient Name: BRITNEY ROB Page [phone] at 1329 All edits/amendments must be made on the electronic document DICTATION DATE: 12/08/181327 COMMUNICATIONS TOWER TECHNICIAN: LAUREN 12/08/181327 RPT#: [id number] DC DATE: STATUS: ADM IN [facility] [address] [place] [address] END OF REPORT
--- NOTE | 2018-12-08 13:49 | MORECARE ---
CASE MANAGEMENT DISCHARGE SUMMARY PATIENT: BRITNEY ROB UNIT: [id number] ADM DATE: 11/27/18 AGE: 88 : 29 SEX: F ROOM/BED: D.2204 AUTHOR: PORTIA FULLER PHYSICIAN: REFERRING PHYSICIAN: TIFFANIE BRAVO MD DATE OF SERVICE: 12/08/18 Discharge Plan Patient Name: BRITNEY ROB Facility: [facility]:[place] : 1930 Planned Disposition: Nursing Facility [facility] Cert Anticipated Discharge Date: 12/08/18 Discharge Date: Expected LOS: 11 Initial Reviewer: [email or web address] Initial Review Date: 11/27/2018 Generated: 12/08/18 2:49 pm Comments DCP- Discharge Planning Updated by [id number]: Nettie Alcantara on 12/08/18 12:[address] CM advised the patient has discharge orders. TC TO [facility]. SPOKE W/ JASON. SHE STATED SHE WOULD HAVE TO CALL HER INVESTIGATOR VICE TO OBTAIN APPROVAL FOR ACCEPTANCE TODAY. FAXED CLINICAL INFORMATION AND MD DISCHARGE SUMMARY. CM WENT TO THE ROOM TO S/W THE PATIENT. SHE IS A LIITLE CONFUSED. HER DAUGHTER, GILMA LIEBERMAN WAS AT THE BEDSIDE. ADVISED SHE WAS BEING DISCHARGE. THEY ARE COMFORTABLE WITH THE DISCHARGE. DISCHARGE IMM SERVED AFTER EXPLANATION. S/W REAL ESTATE TRANSACTION MANAGER UPDATED. PATIENT CAN RETURN TODAY. [facility] WILL PROVIDE TRANSPORTATION. CM HAD ADVISED THEM THAT THE PATIENT HAD O2 AT 2/L VIA NASAL CANNULA. NURSE TO CALL REPORT. DCP- Discharge Planning Updated by [id number]: Chelita Zheng on 11/27/18 3:[address] Patient Name: BRITNEY ROB Admission Status: ER Accout number: [id number] Admission Date: 11-27-2018 : 1930 Admission Diagnosis: Attending: TIFFANIE BRAVO Current LOS: 1 Anticipated DC Date: Planned Disposition: Nursing Facility [facility] Cert Primary Insurance: MEDICARE A & B Discharge Planning Comments: CM met with patient to complete initial dc planning assessment. CM educated patient on the CM role and verbal consent given by patient to complete assessment. 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 At discharge patient plans to return to [place] and feels this is a safe discharge. Patient has all the help she needs and DME. Home O2, nebulizer. She uses a walker. Patient denied known discharge needs at this time. CM will continue to follow and will assist as needed with dc plans/needs. Damage Adjuster: Chelita Zheng DCPIA - Discharge Planning Initial Assessment Updated by [id number]: Chelita Zheng on 11/27/18 4:36 pm * Is the patient Alert and Oriented? Yes * How many steps to enter\exit or inside your home? * PCP LAWRENCE/LUCY * Pharmacy [facility] * Preadmission Environment Pharmacy Technology Instructor Alf * Facility Name [facility] * ADLs Partial Dependent * Partial ADLs (Assistance needed) Bathing Dressing Medication Management Toileting * Other Equipment HAS ALL EQUIPMENT SHE NEEDS * List name and contact numbers for known caregivers / representatives who currently or will assist patient after discharge: GILMA LIEBERMAN (DAUGHTER) [phone] * Verbal permission to speak to the caregivers and representatives has been obtained from the patient. Yes * Community resources currently utilized None * Additional services required to return to the preadmission environment? No * Can the patient safely return to the preadmission environment? Yes * Has this patient been hospitalized within the prior 30 days at any hospital? No Coverage Notice Reviewer: [id number] - Chelita Zheng Notice Issued Date-Time: 11/27/2018 16:30 Notice Type: Patient Choice Letter Notice Delivered To: Patient Relationship to Patient: Sewing Machine Operator Zipper Name: Delivery Method: HAND - Hand Delivered Korin Days: Prior Verbal Notification: Recipient Understood Notice: Yes Recipient Signature: Yes Med Rec Note Co-signed by Attending: Coverage Notice Comment: [facility] patient Reviewer: [id number] - Nettie Alcantara Notice Issued Date-Time: 12/08/2018 13:26 Notice Type: IM Discharge Notice Notice Delivered To: Patient Relationship to Patient: Daughter Sewing Machine Operator Zipper Name: Gilma Lieberman Delivery Method: HAND - Hand Delivered Korin Days: Prior Verbal Notification: Recipient Understood Notice: Yes Recipient Signature: Yes Med Rec Note Co-signed by Attending: Coverage Notice Comment: discharge IMM explained to the patient and her daughter, Gilma Lieberman. No questions or concerns. Discharge IMM served. Last DP export: 12/08/18 12:29 Patient Name: DARRONBRITNEY Page [phone] at 1349 All edits/amendments must be made on the electronic document DICTATION DATE: 12/08/181347 WILDLIFE MANAGER: LAUREN 12/08/181347 RPT#: [id number] DC DATE: STATUS: ADM IN [facility] [address] [place] [address] END OF REPORT
--- NOTE | 2018-12-08 15:09 | NUR ---
CONTACTED ASKING ABOUT [facility], HE INSTRUCTED ME TO LEAVE IT IN AND HE WILL SEE HER THERE. REPORT CALLED TO [facility], WAITING FOR TRANSPORT.
--- NOTE | 2018-12-09 12:18 | MORECARE ---
CASE MANAGEMENT DISCHARGE SUMMARY PATIENT: BRITNEY ROB UNIT: [id number] ADM DATE: 11/27/18 AGE: 88 : 29 SEX: F ROOM/BED: D.2204 AUTHOR: PORTIA FULLER PHYSICIAN: REFERRING PHYSICIAN: TIFFANIE BRAVO MD DATE OF SERVICE: 12/09/18 Discharge Plan Patient Name: BRITNEY ROB Facility: [facility]:[place] : 1930 Planned Disposition: Nursing Facility [facility] Cert Anticipated Discharge Date: 12/08/18 Discharge Date: 12/08/2018 Expected LOS: 11 Initial Reviewer: [email or web address] Initial Review Date: 11/27/2018 Generated: 12/09/18 1:17 pm Comments DCP- Discharge Planning Updated by [email or web address]: Nettie Alcantara on 12/09/18 11:[address] TC TO [facility]. THE PATIENT WAS ADMITTED TO A SKILLED BED ON RETURN TO FACILITY. DCP- Discharge Planning Updated by [email or web address]: Nettie Alcantara on 12/08/18 12:[address] CM advised the patient has discharge orders. TC TO [facility]. SPOKE W/ JASON. SHE STATED SHE WOULD HAVE TO CALL HER FOOD INSPECTOR TO OBTAIN APPROVAL FOR ACCEPTANCE TODAY. FAXED CLINICAL INFORMATION AND MD DISCHARGE SUMMARY. CM WENT TO THE ROOM TO S/W THE PATIENT. SHE IS A LIITLE CONFUSED. HER DAUGHTER, GILMA LIEBERMAN WAS AT THE BEDSIDE. ADVISED SHE WAS BEING DISCHARGE. THEY ARE COMFORTABLE WITH THE DISCHARGE. DISCHARGE IMM SERVED AFTER EXPLANATION. S/W ARMED GUARD UPDATED. PATIENT CAN RETURN TODAY. [facility] WILL PROVIDE TRANSPORTATION. CM HAD ADVISED THEM THAT THE PATIENT HAD O2 AT 2/L VIA NASAL CANNULA. NURSE TO CALL REPORT. DCP- Discharge Planning Updated by [id number]: Chelita Zheng on 11/27/18 3:[address] Patient Name: BRITNEY ROB Admission Status: ER Accout number: [id number] Admission Date: 11-27-2018 : 1930 Admission Diagnosis: Attending: TIFFANIE BRAVO Current LOS: 1 Anticipated DC Date: Planned Disposition: Nursing Facility [facility] Cert Primary Insurance: MEDICARE A & B Discharge Planning Comments: CM met with patient to complete initial dc planning assessment. CM educated patient on the CM role and verbal consent given by patient to complete assessment. 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 At discharge patient plans to return to [place] and feels this is a safe discharge. Patient has all the help she needs and DME. Home O2, nebulizer. She uses a walker. Patient denied known discharge needs at this time. CM will continue to follow and will assist as needed with dc plans/needs. Green Prize Packer: Chelita Zheng DCPIA - Discharge Planning Initial Assessment Updated by [email or web address]: Chelita Zheng on 11/27/18 4:36 pm * Is the patient Alert and Oriented? Yes * How many steps to enter\exit or inside your home? * PCP LAWRENCE/LUCY * Pharmacy [facility] * Preadmission Environment Tunneling Machine Operator [employer] * Facility Name [facility] * ADLs Partial Dependent * Partial ADLs (Assistance needed) Bathing Dressing Medication Management Toileting * Other Equipment HAS ALL EQUIPMENT SHE NEEDS * List name and contact numbers for known caregivers / representatives who currently or will assist patient after discharge: GILMA LIEBERMAN (DAUGHTER) [phone] * Verbal permission to speak to the caregivers and representatives has been obtained from the patient. Yes * Community resources currently utilized None * Additional services required to return to the preadmission environment? No * Can the patient safely return to the preadmission environment? Yes * Has this patient been hospitalized within the prior 30 days at any hospital? No Coverage Notice Reviewer: [id number] - Chelita Zheng Notice Issued Date-Time: 11/27/2018 16:30 Notice Type: Patient Choice Letter Notice Delivered To: Patient Relationship to Patient: Electrical Troubleshooter Name: Delivery Method: HAND - Hand Delivered Korin Days: Prior Verbal Notification: Recipient Understood Notice: Yes Recipient Signature: Yes Med Rec Note Co-signed by Attending: Coverage Notice Comment: [facility] patient Reviewer: [id number] - Nettie Alcantara Notice Issued Date-Time: 12/08/2018 13:26 Notice Type: IM Discharge Notice Notice Delivered To: Patient Relationship to Patient: Daughter Electrical Troubleshooter Name: Gilma Lieberman Delivery Method: HAND - Hand Delivered Korin Days: Prior Verbal Notification: Recipient Understood Notice: Yes Recipient Signature: Yes Med Rec Note Co-signed by Attending: Coverage Notice Comment: discharge IMM explained to the patient and her daughter, Gilma Lieberman. No questions or concerns. Discharge IMM served. Last DP export: 12/08/18 12:49 Patient Name: BRITNEY ROB Page [phone] at 1218 All edits/amendments must be made on the electronic document DICTATION DATE: 12/09/181216 SHOER: LAUREN 12/09/181216 RPT#: [id number] DC DATE:12/08/18 STATUS: DIS IN [facility] [address] [place] [address] END OF REPORT
--- NOTE | 2018-12-09 14:48 | MORECARE ---
CASE MANAGEMENT DISCHARGE SUMMARY PATIENT: BRITNEY ROB UNIT: [id number] ADM DATE: 11/27/18 AGE: 88 : [birth year] SEX: F ROOM/BED: D.2204 AUTHOR: PORTIA FULLER PHYSICIAN: REFERRING PHYSICIAN: TIFFANIE BRAVO MD DATE OF SERVICE: 12/09/18 Discharge Plan Patient Name: BRITNEY ROB Facility: [facility]:[place] : 1930 Planned Disposition: Nursing Facility [facility] Cert Anticipated Discharge Date: 12/08/18 Discharge Date: 12/08/2018 Expected LOS: 11 Initial Reviewer: [email or web address] Initial Review Date: 11/27/2018 Generated: 12/09/18 3:48 pm Comments DCP- Discharge Planning Updated by [id number]: Nettie Alcantara on 12/09/18 11:[address] TC TO [facility]. THE PATIENT WAS ADMITTED TO A SKILLED BED ON RETURN TO FACILITY. DCP- Discharge Planning Updated by [email or web address]: Nettie Alcantara on 12/08/18 12:[address] CM advised the patient has discharge orders. TC TO [facility]. SPOKE W/ JASON. SHE STATED SHE WOULD HAVE TO CALL HER DIRECTOR INTERNAL COMMUNICATIONS TO OBTAIN APPROVAL FOR ACCEPTANCE TODAY. FAXED CLINICAL INFORMATION AND MD DISCHARGE SUMMARY. CM WENT TO THE ROOM TO S/W THE PATIENT. SHE IS A LIITLE CONFUSED. HER DAUGHTER, GILMA LIEBERMAN WAS AT THE BEDSIDE. ADVISED SHE WAS BEING DISCHARGE. THEY ARE COMFORTABLE WITH THE DISCHARGE. DISCHARGE IMM SERVED AFTER EXPLANATION. S/W HIGHWAY ADMINISTRATIVE ENGINEER UPDATED. PATIENT CAN RETURN TODAY. [facility] WILL PROVIDE TRANSPORTATION. CM HAD ADVISED THEM THAT THE PATIENT HAD O2 AT 2/L VIA NASAL CANNULA. NURSE TO CALL REPORT. DCP- Discharge Planning Updated by [id number]: Chelita Zheng on 11/27/18 3:[address] Patient Name: BRITNEY ROB Admission Status: ER Accout number: [id number] Admission Date: 11-27-2018 : 1930 Admission Diagnosis: Attending: TIFFANIE BRAVO Current LOS: 1 Anticipated DC Date: Planned Disposition: Nursing Facility [facility] Cert Primary Insurance: MEDICARE A & B Discharge Planning Comments: CM met with patient to complete initial dc planning assessment. CM educated patient on the CM role and verbal consent given by patient to complete assessment. 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 At discharge patient plans to return to [place] and feels this is a safe discharge. Patient has all the help she needs and DME. Home O2, nebulizer. She uses a walker. Patient denied known discharge needs at this time. CM will continue to follow and will assist as needed with dc plans/needs. Welding Machine Operator Submerged Arc: Chelita Zheng DCPIA - Discharge Planning Initial Assessment Updated by [email or web address]: Chelita Zheng on 11/27/18 4:36 pm * Is the patient Alert and Oriented? Yes * How many steps to enter\exit or inside your home? * PCP LAWRENCE/LUCY * Pharmacy [facility] * Preadmission Environment Motorboat Mechanic Inboard/Outboard Retirement * Facility Name [facility] * ADLs Partial Dependent * Partial ADLs (Assistance needed) Bathing Dressing Medication Management Toileting * Other Equipment HAS ALL EQUIPMENT SHE NEEDS * List name and contact numbers for known caregivers / representatives who currently or will assist patient after discharge: GILMA LIEBERMAN (DAUGHTER) [phone] * Verbal permission to speak to the caregivers and representatives has been obtained from the patient. Yes * Community resources currently utilized None * Additional services required to return to the preadmission environment? No * Can the patient safely return to the preadmission environment? Yes * Has this patient been hospitalized within the prior 30 days at any hospital? No Coverage Notice Reviewer: [id number] - Chelita Zheng Notice Issued Date-Time: 11/27/2018 16:30 Notice Type: Patient Choice Letter Notice Delivered To: Patient Relationship to Patient: Generator Switchboard Operator Name: Delivery Method: HAND - Hand Delivered Korin Days: Prior Verbal Notification: Recipient Understood Notice: Yes Recipient Signature: Yes Med Rec Note Co-signed by Attending: Coverage Notice Comment: [facility] patient Reviewer: [id number] - Nettie Alcantara Notice Issued Date-Time: 12/08/2018 13:26 Notice Type: IM Discharge Notice Notice Delivered To: Patient Relationship to Patient: Daughter Generator Switchboard Operator Name: Gilma Lieberman Delivery Method: HAND - Hand Delivered Korin Days: Prior Verbal Notification: Recipient Understood Notice: Yes Recipient Signature: Yes Med Rec Note Co-signed by Attending: Coverage Notice Comment: discharge IMM explained to the patient and her daughter, Gilma Lieberman. No questions or concerns. Discharge IMM served. Last DP export: 12/09/18 11:18 Patient Name: BRITNEY ROB Page [phone] at 1448 All edits/amendments must be made on the electronic document DICTATION DATE: 12/09/181447 OPERATING ROOM COORDINATOR: LAUREN 12/09/181447 RPT#: [id number] DC DATE:12/08/18 STATUS: DIS IN [facility] [address] [place] [address] END OF REPORT
--- NOTE | 2018-12-17 11:40 | EC ---
PATIENT:BRITNEY ROB DATE OF SERVICE: 11/27/18 SEX: F MEDICAL RECORD: [id number] DATE OF : [birth year] LOCATION:[facility] AGE OF PATIENT: 88 ADMISSION DATE: 11/27/18 REFERRING PHYSICIAN: INTERPRETING PHYSICIAN: MARTIN PEÑA MD ECHOCARDIOGRAM REPORT ECHO CHARGES 4 ECHO COMPLETE Date: 12/06/18 CLINICAL DIAGNOSIS: AFIB HX PACEMAKER ECHOCARDIOGRAPHIC MEASUREMENTS (adult normal given) AC root (d.<3.7cm) 3.7 cm LV Septum d (<1.2 cm> 1.2 cm Valve Excursion 1.5 cm LV Septum (systole) 1.4 cm Left Atria (s.<4.0cm> 4.9 cm LVPW d(<1.2cm) 1.2 cm RV (d.<2.3cm) 3.5 cm LVPW (sytole) 1.4 cm LV diastole(<5.6CM) 4.0 cm MV E-F(>70mm/sec) cm LV systole 2.8 cm LVOT Diameter 1.5 cm MV exc.(>10mm) cm Est.ejection fraction (50-75%) % DOPPLER: LVIT cm/sec A 95.0 cm/sec E 85.0 cm/sec LA cm/sec RVSP 48 mmHg LVOT 84 cm/sec AOP1/2T m/s Asc. Ao 177 cm/sec RVOT 65 cm/sec RA cm/sec PA 100 cm/sec AV Gradient Peak 12.53mmHg AV Mean 5.79 mmHg AV Area 41.2 cm MV Gradient Peak 3.65 mmHg MV Mean 1.44 mmHg MV Area cm COMMENTS: Green Meat Grader: 2 IRMA MCGUIRE Felt Hat Inspector And Packer: 1 Dr. Peña TAPE# PACS Pericardial Effusion N DATE OF SERVICE: PROCEDURE: Echocardiogram. FINDINGS: 1. Left ventricular chamber size is within normal limits. Left ventricular systolic function is normal. Overall ejection fraction estimated at 60% to 65%. 2. Left atrium is enlarged at 4.9 cm. Right atrium and right ventricular chamber sizes are as well mildly dilated. 3. Valvular structures have normal structure and motion. ECHOCARDIOGRAM REPORT [id number] BRITNEY ROB 4. Doppler interrogation reveals mild aortic insufficiency, mild tricuspid regurgitation, no other valvular insufficiency or stenosis. 5. No evidence of pericardial effusion or left ventricular thrombus. TRANSINT:[id number] Voice Confirmation ID: [id number] DOCUMENT ID: [id number] MARTIN PEÑA MD at 1140 CC: [id number] DICTATION DATE: 12/06/18 1356 ENVIRONMENTAL HEALTH AND SAFETY LEADER: 12/06/18 1418 DIS IN 12/08/18 [facility] [address] [place] [id number]
[2019-01-24] MEDS ORDERED: K-DUR20 MEQ PO (08:10)
[2019-01-24] MEDS ORDERED: FUROSEMIDE20 MG PO (08:10)
== END 2018-12-08 15:38 | DRG 177 ==
LOC: D.ER 21:52 → D.MS 11-27 00:35
PROVIDERS: Family Medicine; ADMIT Family Medicine; ATTEND Family Medicine
DX: J15.212 Pneumonia due to Methicillin resistant Staphylococcus aureus (principal); J96.22 Acute and chronic respiratory failure with hypercapnia; J96.21 Acute and chronic respiratory failure with hypoxia; J44.1 Chronic obstructive pulmonary disease with (acute) exacerbation; I48.20 Chronic atrial fibrillation, unspecified; I77.4 Celiac artery compression syndrome; J15.6 Pneumonia due to other Gram-negative bacteria; I49.5 Sick sinus syndrome; D50.8 Other iron deficiency anemias; I10 Essential (primary) hypertension; K21.9 Gastro-esophageal reflux disease without esophagitis; E03.9 Hypothyroidism, unspecified; I25.10 Atherosclerotic heart disease of native coronary artery without angina pectoris; E78.5 Hyperlipidemia, unspecified; I73.9 Peripheral vascular disease, unspecified; I71.4 Abdominal aortic aneurysm, without rupture; F34.1 Dysthymic disorder; Z66 Do not resuscitate; Z99.81 Dependence on supplemental oxygen; R41.82 Altered mental status, unspecified; R11.2 Nausea with vomiting, unspecified; K59.00 Constipation, unspecified

== ENCOUNTER 2019-01-06 19:04 | Inpatient (IN) | payer MEDICARE, OTHER, MEDICAID ==
[~2019-01-06] VITALS: Ht 165.1 cm; Wt 54.4 kg
[~2019-01-06 19:04] MED LIST changes: +ACIDOPHILUS-PE1 EACH PO; +ATROVENT 0.02%2.5 ML UPD; +BETAPACE 120 M120 MG PO; +HYDRALAZINE HCL10 MG PO; +LINZESS145 MCG PO; +LISINOPRIL10 MG PO; +METAMUCIL PACKE1 PKT PO; +ROCEPHIN 1 GM/D51 G1 IM; +VITAMIN B-1250 MCG PO; +Xopenex 0.63 MG INH INH; +ZOFRAN ODT4 MG/UDTAB PO; +ZOLOFT50 MG PO
[2019-01-06] MEDS ORDERED: REMERON15 MG PO (19:11)
[2019-01-06 20:32] LABS: APPEARANCE CLEAR (CLEAR); BILIRUBIN NEGATIVE (NEGATIVE); COLOR YELLOW (YELLOW); GLUCOSE NEGATIVE (NEGATIVE); KETONE NEGATIVE (NEGATIVE); NITRITE NEGATIVE (NEGATIVE); PROTEIN TRACE mg/dL (NEGATIVE); UROBILINOGEN NORMAL (NORMAL)
[2019-01-06 20:33] LABS: BACTERIA MANY /hpf (NEGATIVE); EPITHELIAL CELLS 0-5 /hpf (0-5); MUCUS >1+ /lpf (NONE SEEN); RED CELLS - URINE 0-5 /hpf (0-5); YEAST >1+ /hpf (NONE SEEN)
[2019-01-06 20:38] LABS: BASOPHILS 0.4 % (0-2); EOSINOPHILS 1.7 % (0-7); HEMATOCRIT 26.4 % (36.0-48.0); IMMATURE GRANULOCYTES 1.2 % (0-5); LYMPHOCYTES 6.3 % (15-50); MCHC 28.4 g/dL (31.0-37.0); MEAN PLATELET VOLUME 8.4 fL (7.4-10.4); MONOCYTES 7.6 % (2-11); NEUTROPHILS 82.8 % (40-80); RDW 21.4 % (11.5-14.5); WBC 12.4 10x3/uL (4.8-10.8)
[2019-01-06 20:41] LABS: HEMOGLOBIN 7.5 g/dL (12-16); PLATELET COUNT 611 10x3/uL (130-400)
[2019-01-06 20:50] LABS: CALC OSMOLALITY 283 mosm/kg (275-300); CALCIUM 8.2 mg/dL (8.5-10.1); CARBON DIOXIDE 31.4 mmol/L (21.0-32.0); CHLORIDE - SERUM 106 mmol/L (98-107); CREATININE - SERUM 0.8 mg/dL (0.6-1.3); GLUCOSE 102 mg/dL (74-106); SODIUM 141 mmol/L (136-145); UREA NITROGEN 20 mg/dL (7-18); eGFR NON AFRICAN AMERICAN 72 mL/min (90-120)
[2019-01-06 20:59] LABS: ALBUMIN 2.2 g/dL (3.4-5.0); ALKALINE PHOSPHATASE 200 U/L (46-116); ALT (SGPT) 20 U/L (10-68); AMYLASE - SERUM 29 U/L (25-115); BILIRUBIN - TOTAL 0.61 mg/dL (0.2-1.3); LIPASE 37 U/L (73-393); PROTEIN - SERUM 6.2 g/dL (6.4-8.2); TROPONIN-I < 0.017 ng/mL (0.000-0.060)
[2019-01-07] VITALS (8 sets, daily range): BP systolic 118–172; BP diastolic 48–73; BMI 19.9
[2019-01-07] MEDS ORDERED: ZOFRAN4 MG PO (00:50)
[2019-01-07] MEDS ORDERED: COLACE100 MG PO (00:51)
--- NOTE | 2019-01-07 01:14 | NUR ---
AZITHROMYCIN COMPLETE
[2019-01-07 06:44] LABS: ANION GAP 10.1 mmol/L (8-16); BASOPHILS 0.5 % (0-2); CALCIUM 7.9 mg/dL (8.5-10.1); CARBON DIOXIDE 28.2 mmol/L (21.0-32.0); CREATININE - SERUM 0.8 mg/dL (0.6-1.3); IMMATURE GRANULOCYTES 2.7 % (0-5); LYMPHOCYTES 11.4 % (15-50); MAGNESIUM - SERUM 1.9 mg/dL (1.8-2.4); MCH 24.4 pg (26.0-34.0); MCHC 27.9 g/dL (31.0-37.0); MCV 87.3 fL (80.0-100.0); MEAN PLATELET VOLUME 8.4 fL (7.4-10.4); MONOCYTES 11.5 % (2-11); NEUTROPHILS 72.9 % (40-80); PHOSPHOROUS 3.6 mg/dL (2.5-4.9); PLATELET COUNT 668 10x3/uL (130-400); POTASSIUM - SERUM 4.3 mmol/L (3.5-5.1); RBC 2.75 10x6/uL (4.00-5.40); RDW 21.3 % (11.5-14.5); WBC 10.5 10x3/uL (4.8-10.8)
[2019-01-07 06:48] LABS: INR 1.74 (0.85-1.17); PROTIME 19.7 SECONDS (11.6-15.0)
[2019-01-07 06:49] LABS: APTT 69.1 SECONDS (22.8-39.4); D-DIMER-QUANTITATIVE 2.25 ug/mLFEU (0.20-0.54)
[2019-01-07 07:15] LABS: HEMOGLOBIN 6.7 g/dL (12-16)
--- NOTE | 2019-01-07 07:37 | NUR ---
PT RECEIVED AWAKE AND ALERT, ORIENTED X4 AT PRESENT. NEEDINT ASSIST TO BEDPAN. ASKING FOR COFFEE, NO DIET ORDER AT PRESENT, WILL CLARIFY. CALL LIGHT EXPLAINED.
[2019-01-07 09:57] LABS: % SATURATION 6 % (15-55); IRON 14 ug/dl (35-150); TOTAL IRON BIND CAPACITY 227 ug/dl (260-445); UNSAT IRON BIND CAPACITY 213 ug/dl (150-375)
[2019-01-07 10:10] LABS: FERRITIN 38 ng/mL (3-244); LDH 233 U/L (81-234)
--- NOTE | 2019-01-07 12:20 | NUR ---
TALKED WITH [facility] RIVER[facility] REGARDING PT'S MAR. THEY ARE GOING TO FAX OVER COPY FOR MED REC STATUS.
[2019-01-07 13:23] LABS: CKMB 0.2 U/L (0.0-3.6); CREATINE KINASE 17 UL (21-215); TROPONIN-I < 0.017 ng/mL (0.000-0.060)
--- NOTE | 2019-01-07 20:56 | NUR ---
PT CONVERTED TO CONTROLLED A-FIBB ON TELE AT 98. WILL CONTINUE TO MONITOR.
[2019-01-07 20:59] LABS: CKMB 0.4 U/L (0.0-3.6); CREATINE KINASE 9 UL (21-215); TROPONIN-I 0.021 ng/mL (0.000-0.060)
--- NOTE | 2019-01-07 21:36 | NUR ---
2ND UNIT OF BLOOD STARTED BY JEFFERY Peralta MONITORED BY SLIVER FORMER OF THIS NOTE. VITALS STABLE. WILL CONTINUE TO MONITOR.
--- NOTE | 2019-01-07 21:46 | NUR ---
PT RFA IV INFILTRATED DURING THE START OF TRANSFUSING BLOOD. BLOOD STOPPED. IV DC'D. WILL CONTINUE TO MONITOR.
--- NOTE | 2019-01-07 22:30 | NUR ---
NEW 20GIV STARTED IN PT RFA X2 STICK. BLOOD STARTED BACK. VITALS STABLE AT THIS TIME. BED LOW CALL LIGHT WITHIN REACH. WILL CONTINUE TO MONITOR.
[2019-01-08 00:34] VITALS: BP 176/79
[2019-01-08 00:49] LABS: CKMB 0.4 U/L (0.0-3.6); CREATINE KINASE 12 UL (21-215); TROPONIN-I < 0.017 ng/mL (0.000-0.060)
--- NOTE | 2019-01-08 02:12 | NUR ---
PT COUGHING UP BRIGHT RED/CLEAR SUBSTANCE INTO TISSUE. WAS UNABLE TO GET SAMPLE FROM PT. WILL CONTINUE TO MONITOR.
--- NOTE | 2019-01-08 02:45 | NUR ---
PT BP-184/89. MARQUIS HENLEY PAGED 0.1 CLONADINE ORDERED.
--- NOTE | 2019-01-08 03:16 | NUR ---
I have reviewed this patient and I concur with the Shift Assessment completed by the Licensed Practical Nurse today this shift.
--- NOTE | 2019-01-08 03:30 | NUR ---
PT SITTING UP IN BED SOB. O2-94% WILL CONTINUE TO MONITOR.
[2019-01-08 04:31] VITALS: BP 183/80
[2019-01-08 05:33] LABS: CALC OSMOLALITY 278 mosm/kg (275-300); CALCIUM 7.8 mg/dL (8.5-10.1); CARBON DIOXIDE 24.1 mmol/L (21.0-32.0); CHLORIDE - SERUM 111 mmol/L (98-107); CREATININE - SERUM 0.6 mg/dL (0.6-1.3); GLUCOSE 104 mg/dL (74-106); MAGNESIUM - SERUM 1.8 mg/dL (1.8-2.4); PHOSPHOROUS 3.1 mg/dL (2.5-4.9); POTASSIUM - SERUM 4.2 mmol/L (3.5-5.1); SODIUM 140 mmol/L (136-145); UREA NITROGEN 13 mg/dL (7-18); eGFR NON AFRICAN AMERICAN > 90 mL/min (90-120)
[2019-01-08 05:35] LABS: BASOPHILS 1.3 % (0-2); EOSINOPHILS 1.7 % (0-7); IMMATURE GRANULOCYTES 4.1 % (0-5); LYMPHOCYTES 8.3 % (15-50); MCH 27.1 pg (26.0-34.0); MEAN PLATELET VOLUME 8.8 fL (7.4-10.4); MONOCYTES 13.1 % (2-11); NEUTROPHILS 71.5 % (40-80); RDW 18.9 % (11.5-14.5); WBC 10.7 10x3/uL (4.8-10.8)
[2019-01-08 05:42] LABS: HEMATOCRIT 31.7 % (36.0-48.0); HEMOGLOBIN 9.5 g/dL (12-16); MCV 90.3 fL (80.0-100.0); PLATELET COUNT 447 10x3/uL (130-400); RBC 3.51 10x6/uL (4.00-5.40)
--- NOTE | 2019-01-08 06:50 | NUR ---
REPORT RECEIVED. SHE IS ASLEEP WITH EYES CLOSED RESP EVEN WITHOUT LABOR. SOLA ALARM IS ON. RIGHT A/C SALINE LOCK INTACT. O2 ON AT 3.5 L/M PER N/C. BED IN LOWEST POSITION AND LOCKED. CAREPLAN REVIEW DONE WITH SAFETY PRECAUTIONS IN PLACE
[2019-01-08 09:36] VITALS: BP 176/98
--- NOTE | 2019-01-08 11:03 | MORECARE ---
CASE MANAGEMENT DISCHARGE SUMMARY PATIENT: BRITNEY ROB UNIT: [id number] ADM DATE: 01/06/19 AGE: 88 : 29 SEX: F ROOM/BED: D.2101 AUTHOR: PORTIA FULLER PHYSICIAN: REFERRING PHYSICIAN: MELIZA FLORES MD DATE OF SERVICE: 01/08/19 Discharge Plan Patient Name: BRITNEY ROB Facility: [facility]:[place] : 1930 Planned Disposition: SNF w Planned Readmission Anticipated Discharge Date: 01/10/19 Discharge Date: Expected LOS: 4 Initial Reviewer: [email or web address] Initial Review Date: 01/07/2019 Generated: 01/08/19 12:02 pm DCPIA - Discharge Planning Initial Assessment Updated by [email or web address]: Rosa Clemons on 01/08/19 11:02 am * Is the patient Alert and Oriented? No * How many steps to enter\exit or inside your home? None * PCP Dr. Burns - senior care . * Pharmacy [facility] * Preadmission Environment Nurse Private Duty M[facility] * Facility Name [facility] * ADLs Partial Dependent * Partial ADLs (Assistance needed) Ambulation Bathing Dressing Medication Management Transfers * Equipment Wheelchair * List name and contact numbers for known caregivers / representatives who currently or will assist patient after discharge: Farnaz Sims - [facility] - [phone] * Verbal permission to speak to the caregivers and representatives has been obtained from the patient. Yes * Community resources currently utilized None * Additional services required to return to the preadmission environment? No * Can the patient safely return to the preadmission environment? Yes * Has this patient been hospitalized within the prior 30 days at any hospital? No Patient Name: BRITNEY ROB Page [phone] at 1103 All edits/amendments must be made on the electronic document DICTATION DATE: 01/08/191101 GRE TUTOR: LAUREN 01/08/191101 RPT#: [id number] DC DATE: STATUS: ADM IN [facility] [address] [place] [address] END OF REPORT
--- NOTE | 2019-01-08 11:10 | MORECARE ---
CASE MANAGEMENT DISCHARGE SUMMARY PATIENT: BRITNEY ROB UNIT: [id number] ADM DATE: 01/06/19 AGE: 88 : 29 SEX: F ROOM/BED: D.3126 AUTHOR: ALINADOC PHYSICIAN: REFERRING PHYSICIAN: MELIZA FLORES MD DATE OF SERVICE: 01/08/19 Discharge Plan Patient Name: BRITNEY ROB Facility: [facility]:[place] : 1930 Planned Disposition: SNF w Planned Readmission Anticipated Discharge Date: 01/10/19 Discharge Date: Expected LOS: 4 Initial Reviewer: [email or web address] Initial Review Date: 01/07/2019 Generated: 01/08/19 12:10 pm Comments DCP- Discharge Planning Updated by [email or web address]: Rosa Clemons on 01/08/19 10:[address] DC PLAN: assisted resident at [facility]. ANTICIPATED DC NEEDS: Transportation via [place] CM met with patient to complete initial dc planning assessment. Patient would not open eyes long enough to answer questions. CM called her daughter listed on facesheet Farnaz and completed assessment. CM educated Farnaz on the CM role and verbal consent given by Farnaz to complete assessment. Patient is a resident at [facility]. She will return to the facility at time of discharge. Farnaz agrees this is a safe discharge plan. Patient will transport by [facility] van at time of discharge. No further dc needs voiced at this time. CM will continue to follow and will assist as needed with dc plans/needs. Rosa Clemons RN, [facility] DCPIA - Discharge Planning Initial Assessment Updated by [email or web address]: Rosa Clemons on 01/08/19 11:02 am * Is the patient Alert and Oriented? No * How many steps to enter\exit or inside your home? None * PCP Dr. Burns - detention . * Pharmacy detention pharmacy. * Preadmission Environment [employer] [facility] * Facility Name [facility] * ADLs Partial Dependent * Partial ADLs (Assistance needed) Ambulation Bathing Dressing Medication Management Transfers * Equipment Wheelchair * List name and contact numbers for known caregivers / representatives who currently or will assist patient after discharge: Farnaz Sims - daughter - [phone] * Verbal permission to speak to the caregivers and representatives has been obtained from the patient. Yes * Community resources currently utilized None * Additional services required to return to the preadmission environment? No * Can the patient safely return to the preadmission environment? Yes * Has this patient been hospitalized within the prior 30 days at any hospital? No Last DP export: 01/08/19 10:02 Patient Name: BRITNEY ROB Page [phone] at 1110 All edits/amendments must be made on the electronic document DICTATION DATE: 01/08/19 111 ROLL SKINNER: LAUREN 01/08/190 RPT#: [id number] DC DATE: STATUS: ADM IN [facility] [address] [place] [address] END OF REPORT
[2019-01-08 12:22] VITALS: BP 139/77
[2019-01-08 16:00] VITALS: BP 177/89
[2019-01-08 18:13] VITALS: Ht 165.1 cm; Wt 54.4 kg
--- NOTE | 2019-01-08 19:45 | NUR ---
PT RESTING IN BED WITH EYES CLOSED. NO S/S OF DISTRESS. RR EVEN AND UNLABORED. O2-93% ON 3L. SOLA ALARM IN PLACE, BED LOW, CALL LLIGHT WITHIN REACH. WILL CONTINUE TO MONITOR.
--- NOTE | 2019-01-08 20:06 | NUR ---
ASSISTED PT TO BATHEROOM. X2 ASSIST. URINE OUTPUT 75ML DEONTE IN COLOR.
[2019-01-08 20:21] VITALS: BP 156/77
--- NOTE | 2019-01-08 21:42 | NUR ---
PT IV INFILTRATED IN RAC. IV DC'D. NO SWELLING NOTED AT THIS TIME. WLL CONTINUE TO MONITOR.
[2019-01-09 00:13] VITALS: BP 126/81
--- NOTE | 2019-01-09 02:50 | NUR ---
PT RESTING IN BED WITH EYES CLOSED. RR EVEN AND UNLABORED. PT 93% 3L O2. BED LOW SOLA ALARM IN PLACE, CALL LIGHT WITHIN REACH. WILL CONTINUE TO MONITOR.
[2019-01-09 04:45] VITALS: BP 161/71
--- NOTE | 2019-01-09 05:18 | NUR ---
ASSISTED PT TO BEDSIDE CAMODE.
[2019-01-09 06:17] LABS: CALC OSMOLALITY 285 mosm/kg (275-300); CALCIUM 7.9 mg/dL (8.5-10.1); CARBON DIOXIDE 27.2 mmol/L (21.0-32.0); CHLORIDE - SERUM 112 mmol/L (98-107); CREATININE - SERUM 0.6 mg/dL (0.6-1.3); GLUCOSE 82 mg/dL (74-106); MAGNESIUM - SERUM 1.7 mg/dL (1.8-2.4); PHOSPHOROUS 2.4 mg/dL (2.5-4.9); POTASSIUM - SERUM 3.5 mmol/L (3.5-5.1); SODIUM 145 mmol/L (136-145); UREA NITROGEN 8 mg/dL (7-18); eGFR NON AFRICAN AMERICAN > 90 mL/min (90-120)
[2019-01-09 06:55] LABS: BASOPHILS 0.5 % (0-2); EOSINOPHILS 2.2 % (0-7); HEMATOCRIT 31.3 % (36.0-48.0); HEMOGLOBIN 9.4 g/dL (12-16); IMMATURE GRANULOCYTES 2.2 % (0-5); LYMPHOCYTES 5.9 % (15-50); MCH 26.4 pg (26.0-34.0); MEAN PLATELET VOLUME 8.5 fL (7.4-10.4); NEUTROPHILS 79.2 % (40-80); PLATELET COUNT 507 10x3/uL (130-400); RBC 3.56 10x6/uL (4.00-5.40); RDW 18.8 % (11.5-14.5); WBC 12.5 10x3/uL (4.8-10.8)
[2019-01-09 06:56] LABS: MCV 87.9 fL (80.0-100.0)
--- NOTE | 2019-01-09 07:00 | NUR ---
REPORT RECEIVED UPON ENTERING THE ROOM SHE NEEDED TO USE THE BSC AND SHE URINATED. SOME SOB WITH EXERTION BUT O2 SAT STAYED ABOVE 92& THE WHOLE TIME. SHE IS ON CONTINOUS PULSE OX. O2 IS ON. SOLA BED ALARM IS ON AND WORKING. BED IN LOWEST POSITION AND LOCKED. CAREPLAN REVIEW DONE WITH SAFETY PRECAUTIONS IN PLACE. SOME CONFUSION NOTED BUT NO CHANGE FROM YESTERDAY CL IN REACH
[2019-01-09 09:36] VITALS: BP 135/64
--- NOTE | 2019-01-09 12:58 | NUR ---
Nutrition Follow-up: Diet advanced to full liquids. Pt reports tolerating breakfast this AM but only ate small amt (~25%). No N/V. Does not like Ensure/Boost. Diet: Full Liquid PO intake: 0-25% No new wt Last BM: 01/08 per pt Labs noted: Ca 7.9, PO4 2.4, Mg 1.7 Meds noted: Nathans, Remrenen, NS @ 75 -Rec continue to ADAT as medically feasible. -Encourage PO intake. -RD following.
[2019-01-09 13:17] VITALS: BP 151/68
--- NOTE | 2019-01-09 17:21 | MORECARE ---
CASE MANAGEMENT DISCHARGE SUMMARY PATIENT: BRITNEY ROB UNIT: [id number] ADM DATE: 01/06/19 AGE: 88 : 29 SEX: F ROOM/BED: D.8341 AUTHOR: ALINADOC PHYSICIAN: REFERRING PHYSICIAN: MELIZA FLORES MD DATE OF SERVICE: 01/09/19 Discharge Plan Patient Name: BRITNEY ROB Facility: [facility]:[place] : 1930 Planned Disposition: SNF w Planned Readmission Anticipated Discharge Date: 01/10/19 Discharge Date: Expected LOS: 4 Initial Reviewer: [email or web address] Initial Review Date: 01/07/2019 Generated: 01/09/19 6:21 pm DCP- Discharge Planning Updated by [email or web address]: Rosa Clemons on 01/08/19 10:[address] DC PLAN: [facility] resident at [facility]. ANTICIPATED DC NEEDS: Transportation via [place] CM met with patient to complete initial dc planning assessment. Patient would not open eyes long enough to answer questions. CM called her daughter listed on facesheet Farnaz and completed assessment. CM educated Farnaz on the CM role and verbal consent given by Farnaz to complete assessment. Patient is a resident at [facility]. She will return to the facility at time of discharge. Farnaz agrees this is a safe discharge plan. Patient will transport by [facility] van at time of discharge. No further dc needs voiced at this time. CM will continue to follow and will assist as needed with dc plans/needs. Rosa Clemons RN, [facility] DCPIA - Discharge Planning Initial Assessment Updated by [email or web address]: Rosa Clemons on 01/08/19 11:02 am * Is the patient Alert and Oriented? No * How many steps to enter\exit or inside your home? None * PCP Dr. Burns - retirement . * Pharmacy [facility]. * Preadmission Environment Residential [facility] * Facility Name [facility] * ADLs Partial Dependent * Partial ADLs (Assistance needed) Ambulation Bathing Dressing Medication Management Transfers * Equipment Wheelchair * List name and contact numbers for known caregivers / representatives who currently or will assist patient after discharge: Farnaz Sims - daughter - [phone] * Verbal permission to speak to the caregivers and representatives has been obtained from the patient. Yes * Community resources currently utilized None * Additional services required to return to the preadmission environment? No * Can the patient safely return to the preadmission environment? Yes * Has this patient been hospitalized within the prior 30 days at any hospital? No External Providers External Provider: [facility] Next Contact Date: 01/09/2019 Service Request Date: Service Type: Resolution: Reviewer: Comments: Last DP export: 01/08/19 10:10 Patient Name: BRITNEY ROB Page [phone] at 1721 All edits/amendments must be made on the electronic document DICTATION DATE: 01/09/191720 CHILDREN'S LITERATURE PROFESSOR: LAUREN 01/09/191720 RPT#: [id number] DC DATE: STATUS: ADM IN [facility] [address] [place] [address] END OF REPORT
[2019-01-09 17:27] VITALS: BP 153/62
[2019-01-09 19:00] VITALS: BP 138/61
--- NOTE | 2019-01-09 19:15 | NUR ---
BEING ASSISTED BY TECHS PT TOLERATING ALLL WELL BED LOW AND LOCKED WITH SR X2
[2019-01-10] VITALS: BP 154/76
[2019-01-10 04:00] VITALS: BP 152/85
--- NOTE | 2019-01-10 04:56 | NUR ---
I have reviewed this patient and I concur with the Shift Assessment completed by the Licensed Practical Nurse today this shift.
--- NOTE | 2019-01-10 06:45 | NUR ---
REPORT RECEIVED. SHE IS SITTING UP SUPINE IN BED. RESP EVEN WITHOUT LABOR O2 ON AT 3 L/M PER N/C. CONT. PULSE OX ON SHOWS 96%. SHE STATES SHE FEELS BETTER THAN YESTERDAY. SALINE LOCK INTACT TO LEFT WRIST, SOLA BED IS ON AND WORKING. BED IN LOWEST POSITION AND LOCKED. CAREPLAN REVIEW DONE WITH SAFETY PRECAUTIONS NOTED.
[2019-01-10 09:51] VITALS: BP 119/80
[2019-01-10 10:56] LABS: CALC OSMOLALITY 282 mosm/kg (275-300); CALCIUM 7.7 mg/dL (8.5-10.1); CARBON DIOXIDE 29.8 mmol/L (21.0-32.0); CHLORIDE - SERUM 109 mmol/L (98-107); CREATININE - SERUM 0.7 mg/dL (0.6-1.3); GLUCOSE 99 mg/dL (74-106); MAGNESIUM - SERUM 1.6 mg/dL (1.8-2.4); PHOSPHOROUS 2.7 mg/dL (2.5-4.9); POTASSIUM - SERUM 3.1 mmol/L (3.5-5.1); SODIUM 143 mmol/L (136-145); UREA NITROGEN 7 mg/dL (7-18); eGFR NON AFRICAN AMERICAN 83 mL/min (90-120)
[2019-01-10 11:03] LABS: HEMATOCRIT 30.6 % (36.0-48.0); HEMOGLOBIN 9.5 g/dL (12-16); LYMPHOCYTES 5.7 % (15-50); MCH 27.7 pg (26.0-34.0); MCV 89.2 fL (80.0-100.0); MEAN PLATELET VOLUME 8.2 fL (7.4-10.4); NEUTROPHILS 85.7 % (40-80); PLATELET COUNT 449 10x3/uL (130-400); RBC 3.43 10x6/uL (4.00-5.40); RDW 19.7 % (11.5-14.5); WBC 12.1 10x3/uL (4.8-10.8)
[2019-01-10 13:19] VITALS: BP 148/88
[2019-01-10 18:06] VITALS: BP 144/65
[2019-01-10 20:00] VITALS: BP 155/78
[2019-01-11] VITALS (7 sets, daily range): BP systolic 126–176; BP diastolic 52–79
[2019-01-11 05:25] LABS: BASOPHILS 0.3 % (0-2); EOSINOPHILS 0.4 % (0-7); HEMATOCRIT 35.9 % (36.0-48.0); HEMOGLOBIN 10.7 g/dL (12-16); IMMATURE GRANULOCYTES 1.5 % (0-5); LYMPHOCYTES 6.5 % (15-50); MCH 26.9 pg (26.0-34.0); MCHC 29.8 g/dL (31.0-37.0); MCV 90.2 fL (80.0-100.0); MEAN PLATELET VOLUME 8.9 fL (7.4-10.4); MONOCYTES 7.8 % (2-11); NEUTROPHILS 83.5 % (40-80); PLATELET COUNT 462 10x3/uL (130-400); RBC 3.98 10x6/uL (4.00-5.40); RDW 20.1 % (11.5-14.5); WBC 14.3 10x3/uL (4.8-10.8)
[2019-01-11 05:39] LABS: AMYLASE - SERUM 33 U/L (25-115); CALCIUM 8.2 mg/dL (8.5-10.1); CHLORIDE - SERUM 108 mmol/L (98-107); CREATININE - SERUM 0.7 mg/dL (0.6-1.3); GLUCOSE 94 mg/dL (74-106); MAGNESIUM - SERUM 1.9 mg/dL (1.8-2.4); PHOSPHOROUS 2.6 mg/dL (2.5-4.9); SODIUM 142 mmol/L (136-145); eGFR NON AFRICAN AMERICAN 83 mL/min (90-120)
[2019-01-11 05:40] LABS: CALC OSMOLALITY 281 mosm/kg (275-300); LIPASE 30 U/L (73-393); POTASSIUM - SERUM 4.3 mmol/L (3.5-5.1); UREA NITROGEN 10 mg/dL (7-18)
--- NOTE | 2019-01-11 07:00 | NUR ---
RECEIVED REPORT. ASSUMED CARE OF PATIENT. BEDSIDE SHIFT REPORT COMPLETED. PATIENT RESTING WITH EYES CLOSED. RESP EVEN AND UNLABORED. CONTINUOUS PULSE OX PATENT. NO DISTRESS. NO FAMILY AT BEDSIDE. SR UP FOR SAFETY.
--- NOTE | 2019-01-11 11:00 | NUR ---
PATIENT SON AT NURSING STATION DISCUSSING PATIENT STATUS. PATIENTS SON STATES THAT SHE HAS NOT BEEN EATING WELL AND CONTINUOUSLY BEEN LOOSING WEIGHT. HE STATED THERE HAS TO BE A LINE DRAWN AT HOW MUCH WEIGHT SHE CAN LOOSE BEFORE SOMETHING IS DONE, LIKE PLACE A TUBE IN HER STOMACH. THIS SWEATBAND FLANGER ASKS THE SON HOW HIS MOM FELT ABOUT PLACING A FEEDING TUBE AND HE STATES "I DON'T KNOW". PATIENTS SON THANKED THIS SWEATBAND FLANGER FOR DISCUSSING HIS MOM WITH HIM AND STATES THAT HE WILL BE BACK LATER THIS AFTERNOON, HE DID NOT WANT TO WAKE HER SHE WAS SLEEPING AT THIS TIME.
--- NOTE | 2019-01-11 11:46 | NUR ---
PULLED UP IN BED. PATIENT SITTING UP NOW. PROVIDED PATIENT WITH CHICKEN NOODLE SOUP AND CRACKERS AND COFFEE. SPOKE WITH PATIENT ABOUT HOW SHE WOULD FEEL ABOUT HAVING A TUBE PLACED IN HER STOMACH FOR SUPPLEMENTAL FEEDINGS AND SHE DOES NOT WANT THAT. ENCOURAGED PATIENT CONSUME MORE ORALLY SHE HAS BEEN LOOSING WEIGHT, THAT IS WHAT TRIGGERED PATIENT TO REQUEST THE CHICKEN NOODLE SOUP PROVIDED UPON REQUEST AT THIS TIME. NO DISTRESS.
--- NOTE | 2019-01-11 12:15 | NUR ---
THIS AD OPERATIONS SPECIALIST HAS NOT HAD LENGTHY CONVERSTATION REGARDING PATIENT CARE DOCUMENTED.
--- NOTE | 2019-01-11 16:48 | NUR ---
AT BEDSIDE FOR ROUNDS, IV FLUIDS REDUCED TO 30 ML/HR PER ORDERS RECEIVED AT THIS TIME.
--- NOTE | 2019-01-11 19:10 | NUR ---
RECEIVED PT. A&O X4. RR EVEN AND UNLABORED ON 4L NC. NO S/S OF DISTRESS NOTED AT THIS TIME. PT DENIES NEEDS. SR X2, CALL LIGHT IN REACH. WILL CTM.
--- NOTE | 2019-01-12 01:55 | NUR ---
O2 SAT DECREASED 82-83 ON 4L WHILE PT WAS SLEEPING, OPEN MOUTH BREATHING. UP X1 ASSIST TO RESTROOM. NO FURHTER NEEDS EXPRESSED. CALL LIGHT IN REACH. WILL CTM.
--- NOTE | 2019-01-12 02:12 | NUR ---
RECEIVED PT. PT UP IN BED SPO2 94% ON RA. SON AT BEDSIDE. RR EVEN AND UNLABORED. NO S/S OF DISTRESS OBSERVED AT THIS TIME. PT DENIES NEEDS. CALL LIGHT IN REACH. WILL CTM.
[2019-01-12 04:51] LABS: BASOPHILS 0.3 % (0-2); EOSINOPHILS 3.6 % (0-7); HEMATOCRIT 33.3 % (36.0-48.0); HEMOGLOBIN 9.7 g/dL (12-16); IMMATURE GRANULOCYTES 1.1 % (0-5); LYMPHOCYTES 5.6 % (15-50); MCH 26.5 pg (26.0-34.0); MCHC 29.1 g/dL (31.0-37.0); MEAN PLATELET VOLUME 8.8 fL (7.4-10.4); MONOCYTES 11.5 % (2-11); NEUTROPHILS 77.9 % (40-80); PLATELET COUNT 455 10x3/uL (130-400); RBC 3.66 10x6/uL (4.00-5.40); RDW 20.6 % (11.5-14.5); WBC 12.2 10x3/uL (4.8-10.8)
[2019-01-12 04:52] VITALS: BP 131/55
[2019-01-12 05:27] LABS: ANION GAP 7.9 mmol/L (8-16); CALCIUM 8.2 mg/dL (8.5-10.1); CARBON DIOXIDE 27.6 mmol/L (21.0-32.0); CREATININE - SERUM 0.8 mg/dL (0.6-1.3); PHOSPHOROUS 2.3 mg/dL (2.5-4.9)
[2019-01-12 05:32] LABS: POTASSIUM - SERUM 3.5 mmol/L (3.5-5.1)
--- NOTE | 2019-01-12 07:00 | NUR ---
RECEIVED REPORT. ASSUMED CARE OF PATIENT. CALL LIGHT WITHIN REACH. PATIENT RESTING WITH EYES CLOSED. RESP EVEN AND UNLABORED. CONTINUOUS PULSE OX PATENT. NO DISTRESS.
[2019-01-12 07:58] VITALS: BP 158/77
--- NOTE | 2019-01-12 10:13 | NUR ---
REORIENTED PATIENT X 3 TO CALL LIGHT. PATIENT CONTINUES TO HOLLAR OUT FOR ASSISTANCE. PATIENT IS NOT GRASPING THE IDEA OF USING THE CALL LIGHT.
[2019-01-12 11:59] VITALS: BP 142/71
--- NOTE | 2019-01-12 16:20 | NUR ---
RESTING IN BED WITH EYES CLOSED. RESP EVEN AND UNLABORED. O2 SAT 97%. NO DISTRESS.
[2019-01-12 20:25] VITALS: BP 146/77
[2019-01-13 00:45] VITALS: BP 119/66
[2019-01-13 04:07] LABS: BASOPHILS 0.4 % (0-2); EOSINOPHILS 3.8 % (0-7); HEMATOCRIT 32.8 % (36.0-48.0); HEMOGLOBIN 9.6 g/dL (12-16); IMMATURE GRANULOCYTES 0.8 % (0-5); LYMPHOCYTES 7.5 % (15-50); MCH 26.8 pg (26.0-34.0); MCHC 29.3 g/dL (31.0-37.0); MCV 91.6 fL (80.0-100.0); MEAN PLATELET VOLUME 8.7 fL (7.4-10.4); MONOCYTES 9.9 % (2-11); NEUTROPHILS 77.6 % (40-80); PLATELET COUNT 435 10x3/uL (130-400); RBC 3.58 10x6/uL (4.00-5.40); RDW 21.2 % (11.5-14.5)
[2019-01-13 04:25] LABS: CALC OSMOLALITY 285 mosm/kg (275-300); CALCIUM 8.2 mg/dL (8.5-10.1); CARBON DIOXIDE 32.2 mmol/L (21.0-32.0); CHLORIDE - SERUM 108 mmol/L (98-107); CREATININE - SERUM 0.7 mg/dL (0.6-1.3); GLUCOSE 108 mg/dL (74-106); MAGNESIUM - SERUM 1.9 mg/dL (1.8-2.4); SODIUM 143 mmol/L (136-145); UREA NITROGEN 12 mg/dL (7-18); eGFR NON AFRICAN AMERICAN 83 mL/min (90-120)
[2019-01-13 04:26] LABS: POTASSIUM - SERUM 2.9 mmol/L (3.5-5.1)
[2019-01-13 04:30] VITALS: BP 115/62
--- NOTE | 2019-01-13 06:45 | NUR ---
REPORT RECEIVED. ALERT SHE OFFERS NO C/O AT THIS TIME. RESP EVEN WITHOUT LABOR, O2 ON AT 3 L/M PER N/C CONT PULSE OX READS 95%, LEFT HAND WITH NS AT 30 CC/HR INFUSING WITHOUT DIFF BUT AROUND SITE IS BRUISED BUT NOT SWOLLEN. BED IN LOWEST POSITION AND LOCKED. SOLA BED IS ON. CL IN REACH. CAREPLAN REVIEW DONE WITH SAFETY PRECAUTIONS IN PLACE
[2019-01-13 09:00] VITALS: BP 158/83
[2019-01-13 14:38] VITALS: BP 147/63
--- NOTE | 2019-01-13 15:08 | NUR ---
OT NOTE: PT COMPLETED BED MOB WITH SBA. PT COMPLETED SIT TO STAND WITH CGA. PT COMPLETED TOILETING WITH CGA. PT COMPLETED TOILET HYGIENE WITH SBA. THANK YOU, [facility] [place]
--- NOTE | 2019-01-13 16:37 | NUR ---
REHAB PRESCREENING CONSULT RECIEVED AND THE CHART HAS BEEN REVIEWED. THE PATIENT MEETS CRITERIA AND WILL BE ACCEPTED WHEN THE PHYSICIAN FEELS SHE IS MEDICALLY STABLE. DISCUSSED WITH THE CM LARISSA SINHA. SAMSON VEGAS RN CLINICAL LIAISON, REHAB
--- NOTE | 2019-01-13 16:44 | MORECARE ---
CASE MANAGEMENT DISCHARGE SUMMARY PATIENT: BRITNEY ROB UNIT: [id number] ADM DATE: 01/06/19 AGE: 88 : 29 SEX: F ROOM/BED: D.4847 AUTHOR: ALINADOC PHYSICIAN: REFERRING PHYSICIAN: MELIZA FLORES MD DATE OF SERVICE: 01/13/19 Discharge Plan Patient Name: BRITNEY ROB Facility: [facility]:[place] : 1930 Planned Disposition: Inpatient Rehab Anticipated Discharge Date: 01/13/19 Discharge Date: Expected LOS: 7 Initial Reviewer: [email or web address] Initial Review Date: 01/07/2019 Generated: 01/13/19 5:44 pm DCP- Discharge Planning Updated by [email or web address]: Rosa Clemons on 01/08/19 10:[address] DC PLAN: [facility] resident at [facility]. ANTICIPATED DC NEEDS: Transportation via [place] CM met with patient to complete initial dc planning assessment. Patient would not open eyes long enough to answer questions. CM called her daughter listed on facesheet Farnaz and completed assessment. CM educated Farnaz on the CM role and verbal consent given by Farnaz to complete assessment. Patient is a resident at [facility]. She will return to the facility at time of discharge. Farnaz agrees this is a safe discharge plan. Patient will transport by [facility] van at time of discharge. No further dc needs voiced at this time. CM will continue to follow and will assist as needed with dc plans/needs. Rosa Clemons RN, [facility] DCPIA - Discharge Planning Initial Assessment Updated by [email or web address]: Rosa Clemons on 01/08/19 11:02 am * Is the patient Alert and Oriented? No * How many steps to enter\exit or inside your home? None * PCP Dr. Burns - longterm . * Pharmacy longterm pharmacy. * Preadmission Environment [facility] * Facility Name [facility] * ADLs Partial Dependent * Partial ADLs (Assistance needed) Ambulation Bathing Dressing Medication Management Transfers * Equipment Wheelchair * List name and contact numbers for known caregivers / representatives who currently or will assist patient after discharge: Farnaz Sims - daughter - [phone] * Verbal permission to speak to the caregivers and representatives has been obtained from the patient. Yes * Community resources currently utilized None * Additional services required to return to the preadmission environment? No * Can the patient safely return to the preadmission environment? Yes * Has this patient been hospitalized within the prior 30 days at any hospital? No Coverage Notice Reviewer: [id number] Briana Flannery Notice Issued Date-Time: 01/13/2019 14:20 Notice Type: IM Discharge Notice Notice Delivered To: Patient Relationship to Patient: Compliance Engineer Products Name: Delivery Method: HAND - Hand Delivered Korin Days: Prior Verbal Notification: Recipient Understood Notice: Yes Recipient Signature: Yes Med Rec Note Co-signed by Attending: Coverage Notice Comment: Last DP export: 01/09/19 4:21 Patient Name: BRITNEY ROB Page [phone] at 1644 All edits/amendments must be made on the electronic document DICTATION DATE: 01/13/191643 CYBERATHLETE: LAUREN 01/13/191643 RPT#: [id number] DC DATE: STATUS: ADM IN [facility] [address] [place] [address] END OF REPORT
[2019-01-13] MEDS ORDERED: BROVANA15 MCG/2 M INH (16:47)
[2019-01-13] MEDS ORDERED: FUROSEMIDE10 MG/M1 IV (16:48)
[2019-01-13] MEDS ORDERED: RACEMIC EPI 2.0.5 ML INH (16:48)
[2019-01-13] MEDS ORDERED: CARAFATE1 G PO (16:49)
[2019-01-13] MEDS ORDERED: AFRIN NASAL SPR15 ML NASAL (16:49)
[2019-01-13] MEDS ORDERED: MAXIPIME 2 GM/D52 G1 IV (16:52)
--- NOTE | 2019-01-13 16:53 | MORECARE ---
CASE MANAGEMENT DISCHARGE SUMMARY PATIENT: BRITNEY ROB UNIT: [id number] ADM DATE: 01/06/19 AGE: 88 : 29 SEX: F ROOM/BED: D.3896 AUTHOR: PORTIA FULLER PHYSICIAN: REFERRING PHYSICIAN: MELIZA FLORES MD DATE OF SERVICE: 01/13/19 Discharge Plan Patient Name: BRITNEY ROB [facility] [facility] 1930 Planned Disposition: Inpatient Rehab Anticipated Discharge Date: 01/13/19 Discharge Date: Expected LOS: 7 Initial Reviewer: [email or web address] Initial Review Date: 01/07/2019 Generated: 01/13/19 5:52 pm Comments DCP- Discharge Planning Updated by [email or web address]: Tyshawn Flannery on 01/13/19 3:[address] Patient Name: BRITNEY ROB Encounter No: [id number] : 1930 Primary Insurance: MEDICARE A & B Anticipated DC Date: 01-13-2019 Planned Disposition: Inpatient Rehab External Planned Provider: [facility] INPATIENT REHAB DCP follow-up note: CM SPOKE TO ERIBERTO AND SAMSON OF INPATIENT REHAB, THEY PLAN TO ACCEPT PT TODAYFOR REHAB. PT NOTIFIED, IN AGREEMENT WITH DISCHARGE TO INPATIENT REHAB. PT WILL NOTIFY HER DAUGHTER. IMPORTANT MESSAGE FROM MEDICARE PROVIDED AND EXPLAINED. LILLIE LONG AND DR. BARROSO INFORMED PT AND CM THAT THEY WILL DISCHARGE PT TODAY TO INPATIENT REHAB. [facility] INPATIENT REHAB TO CONTACT MED 2 NURSE WITH ROOM NUMBER WHEN READY TO ACCEPT PT AND NURSE REPORT. Tyshawn Flannery DCP- Discharge Planning Updated by [email or web address]: Rosa Clemons on 01/08/19 10:[address] DC PLAN: senior living resident at [facility]. ANTICIPATED DC NEEDS: Transportation via [place] at [place]. CM met with patient to complete initial dc planning assessment. Patient would not open eyes long enough to answer questions. CM called her daughter listed on facesheet Farnaz and completed assessment. CM educated Farnaz on the CM role and verbal consent given by Farnaz to complete assessment. Patient is a resident at [facility]. She will return to the facility at time of discharge. Farnaz agrees this is a safe discharge plan. Patient will transport by senior living van at time of discharge. No further dc needs voiced at this time. CM will continue to follow and will assist as needed with dc plans/needs. Rosa Clemons RN, [facility] DCPIA - Discharge Planning Initial Assessment Updated by [email or web address]: Rosa Clemons on 01/08/19 11:02 am * Is the patient Alert and Oriented? No * How many steps to enter\exit or inside your home? None * PCP Dr. Burns - [facility] . * Pharmacy [facility]. * Preadmission Environment Bindery Machine Operator Custodial * Facility Name [facility] * ADLs Partial Dependent * Partial ADLs (Assistance needed) Ambulation Bathing Dressing Medication Management Transfers * Equipment Wheelchair * List name and contact numbers for known caregivers / representatives who currently or will assist patient after discharge: Farnaz iSms - rao - [phone] * Verbal permission to speak to the caregivers and representatives has been obtained from the patient. Yes * Community resources currently utilized None * Additional services required to return to the preadmission environment? No * Can the patient safely return to the preadmission environment? Yes * Has this patient been hospitalized within the prior 30 days at any hospital? No Coverage Notice Reviewer: [email or web address] - Tyshawn Flannery Notice Issued Date-Time: 01/13/2019 14:20 Notice Type: IM Discharge Notice Notice Delivered To: Patient Relationship to Patient: Computer Lab Assistant Name: Delivery Method: HAND - Hand Delivered Korin Days: Prior Verbal Notification: Recipient Understood Notice: Yes Recipient Signature: Yes Med Rec Note Co-signed by Attending: Coverage Notice Comment: Last DP export: 01/13/19 3:44 Patient Name: BRITNEY ROB Page [phone] at 1653 All edits/amendments must be made on the electronic document DICTATION DATE: 01/13/191651 HAND SIGN WRITER: LAUREN 01/13/191651 RPT#: [id number] DC DATE: STATUS: ADM IN [facility] [address] [place] [address] END OF REPORT
--- NOTE | 2019-01-13 17:08 | MORECARE ---
CASE MANAGEMENT DISCHARGE SUMMARY PATIENT: BRITNEY ROB UNIT: [id number] ADM DATE: 01/06/19 AGE: 88 : 28 SEX: F ROOM/BED: D.8482 AUTHOR: PORTIA FULLER PHYSICIAN: REFERRING PHYSICIAN: MELIZA FLORES MD DATE OF SERVICE: 01/13/19 Discharge Plan Patient Name: BRITNEY ROB [facility] [facility] 1930 Planned Disposition: Inpatient Rehab Anticipated Discharge Date: 01/13/19 Discharge Date: Expected LOS: 7 Initial Reviewer: [email or web address] Initial Review Date: 01/07/2019 Generated: 01/13/19 6:07 pm Comments DCP- Discharge Planning Updated by [email or web address]: Tyshawn Flannery on 01/13/19 3:[address] Patient Name: BRITNEY ROB Encounter No: [id number] : 1930 Primary Insurance: MEDICARE A & B Anticipated DC Date: 01-13-2019 Planned Disposition: Inpatient Rehab External Planned Provider: [facility] IN[facility] DCP follow-up note: CM SPOKE TO [facility] OF INPATIENT REHAB, THEY PLAN TO ACCEPT PT TODAYFOR REHAB. PT NOTIFIED, IN AGREEMENT WITH DISCHARGE TO INPATIENT REHAB. PT WILL NOTIFY HER DAUGHTER. IMPORTANT MESSAGE FROM MEDICARE PROVIDED AND EXPLAINED. LILLIE LONG AND DR. BARROSO INFORMED PT AND CM THAT THEY WILL DISCHARGE PT TODAY TO INPATIENT REHAB. [facility] IN[facility] TO CONTACT MED 2 NURSE WITH ROOM NUMBER WHEN READY TO ACCEPT PT AND NURSE REPORT. Tyshawn Flannery DCP- Discharge Planning Updated by [email or web address]: Rosa Clemons on 01/08/19 10:[address] DC PLAN: halfway resident at [facility]. ANTICIPATED DC NEEDS: Transportation via [place] at [place]. CM met with patient to complete initial dc planning assessment. Patient would not open eyes long enough to answer questions. CM called her daughter listed on facesheet Farnaz and completed assessment. CM educated Farnaz on the CM role and verbal consent given by Farnaz to complete assessment. Patient is a resident at [facility]. She will return to the facility at time of discharge. Farnaz agrees this is a safe discharge plan. Patient will transport by retirement van at time of discharge. No further dc needs voiced at this time. CM will continue to follow and will assist as needed with dc plans/needs. Rosa Clemons RN, [facility] DCPIA - Discharge Planning Initial Assessment Updated by [email or web address]: Rosa Clemons on 01/08/19 11:02 am * Is the patient Alert and Oriented? No * How many steps to enter\exit or inside your home? None * PCP Dr. Burns - [facility] . * Pharmacy [facility]. * Preadmission Environment Transportation Maintenance Operator [facility] * Facility Name [facility] * ADLs Partial Dependent * Partial ADLs (Assistance needed) Ambulation Bathing Dressing Medication Management Transfers * Equipment Wheelchair * List name and contact numbers for known caregivers / representatives who currently or will assist patient after discharge: Farnaz Sims - rao - [phone] * Verbal permission to speak to the caregivers and representatives has been obtained from the patient. Yes * Community resources currently utilized None * Additional services required to return to the preadmission environment? No * Can the patient safely return to the preadmission environment? Yes * Has this patient been hospitalized within the prior 30 days at any hospital? No Coverage Notice Reviewer: [email or web address] - Tyshawn Flannery Notice Issued Date-Time: 01/13/2019 14:20 Notice Type: IM Discharge Notice Notice Delivered To: Patient Relationship to Patient: Administrative Support Manager Name: Delivery Method: HAND - Hand Delivered Korin Days: Prior Verbal Notification: Recipient Understood Notice: Yes Recipient Signature: Yes Med Rec Note Co-signed by Attending: Coverage Notice Comment: Last DP export: 01/13/19 3:53 Patient Name: BRITNEY ROB Page [phone] at 1708 All edits/amendments must be made on the electronic document DICTATION DATE: 01/13/191706 WATER PLANT MAINTENANCE MECHANIC: LAUREN 01/13/191706 RPT#: [id number] DC DATE: STATUS: ADM IN [facility] [address] [place] [address] END OF REPORT
--- NOTE | 2019-01-13 17:45 | NUR ---
REPORT CALLED TO [facility]. DISCHARGE PAPERS EXPLAINED AND ALL HER QUESTIONS ANSWERED.
[2019-01-13 17:51] VITALS: BP 148/76
--- NOTE | 2019-01-13 18:15 | NUR ---
DAUGHTER GILMA WAS NOTIFIED OF HER DISCHARGE TO REHAB. SHE AGREES WITH THIS AND KNOWS ROOM NUMBER
--- NOTE | 2019-01-13 18:25 | NUR ---
TRANSPORTED DOWN TO REHAB VIA BED. SHE IS STABLE WITH O2 SAT OF 97% ON O2 AT 3 L/M PER N/C. SHE DENIES ANY C/O PAIN OR ISSUES. SHE WAS ABLE TO TRANSFER SELF OVER TO NEW BED WITH ONE ASSIST. SALINE LOCK INTACT TO TOP OF LEFT HAND. O2 WAS TRANSFERRED OVER TO WALL O2 AND ALL PERSONAL BELONGINGS WERE LEFT IN HER CLOSET. CL IN REACH WITH SOLA BED ON.
[2019-01-24] MEDS ORDERED: FUROSEMIDE20 MG PO (08:10)
[2019-01-24] MEDS ORDERED: K-DUR20 MEQ PO (08:10)
== END 2019-01-13 18:25 | DRG 177 ==
LOC: D.ER 19:04 → D.M2 23:43
PROVIDERS: Family Medicine; Internal Medicine Hematology & Oncology; ADMIT Family Medicine Adult Medicine; ATTEND Family Medicine Adult Medicine
DX: J69.0 Pneumonitis due to inhalation of food and vomit (principal); J96.21 Acute and chronic respiratory failure with hypoxia; N39.0 Urinary tract infection, site not specified; J44.1 Chronic obstructive pulmonary disease with (acute) exacerbation; J98.11 Atelectasis; D64.9 Anemia, unspecified; I48.91 Unspecified atrial fibrillation; K21.9 Gastro-esophageal reflux disease without esophagitis; G30.9 Alzheimer's disease, unspecified; F02.80 Dementia in other diseases classified elsewhere, unspecified severity, without behavioral disturbance, psychotic disturbance, mood disturbance, and anxiety; F32.9 Major depressive disorder, single episode, unspecified; Z79.01 Long term (current) use of anticoagulants; Z95.0 Presence of cardiac pacemaker; D50.9 Iron deficiency anemia, unspecified; E03.9 Hypothyroidism, unspecified; Z66 Do not resuscitate